=== PATIENT | female | born 1975 | race Caucasian/White ===

== ENCOUNTER → 2017-11-15 | Outpatient (CLI) | payer BC, OTHER, SELFPAY | LOC: M PLARAD 15:28 | DX: D49.1 Neoplasm of unspecified behavior of respiratory system (principal); N83.202 Unspecified ovarian cyst, left side | CPT/HCPCS: 78815 ==

== ENCOUNTER 2018-02-08 08:38 | Emergency (ER) | payer BC ==
[2018-02-08] MEDS: NS 1,000 ML IV (09:41)
[2018-02-08] MEDS: KETOROLAC 30 MG/ML VIAL (J1885) IV (09:41)
[2018-02-08 09:51] LABS: BASO % 0.5 % (0.0-1.0); EOS # 0.3 10^3/uL (0.0-0.50); EOS % 4.5 % (0.0-3.0); HEMATOCRIT 33.8 % (36.0-47.0); HEMOGLOBIN 11.4 g/dl (12.0-15.5); IMMATURE GRANULOCYTE % 0.3 % (0-3.0); LYMPH % 31.9 % (24.0-44.0); MEAN CORPUSCULAR HEMOGLOBIN 32.7 pg (27.0-33.0); MEAN CORPUSCULAR HGB CONC 33.7 g/dl (32.0-36.5); MEAN CORPUSCULAR VOLUME 96.8 fl (80.0-96.0); MONO # 0.4 10^3/uL (0.0-0.8); MONO % 6.9 % (0.0-5.0); NEUTROPHILS # 3.5 10^3/uL (1.8-7.7); NEUTROPHILS % 55.9 % (36.0-66.0); PLATELET COUNT, AUTOMATED 235 10^3/uL (150-450); RED BLOOD COUNT 3.49 10^6/uL (4.00-5.40); RED CELL DISTRIBUTION WIDTH 12.5 % (11.5-14.5); WHITE BLOOD COUNT 6.2 10^3/uL (4.0-10.0)
[2018-02-08 09:58] LABS: KETONE, URINE AUTO RFX NEGATIVE (NEGATIVE); LEUKOCYTE ESTERASE UR AUTO RFX NEGATIVE (NEGATIVE); MUCUS, URINE RFX LARGE (NEGATIVE); NITRITE, URINE AUTO RFX NEGATIVE (NEGATIVE); RBC, URINE AUTO RFX TNTC /HPF (0-3); SPECIFIC GRAVITY UR AUTO RFX 1.024 (1.002-1.035); SQUAM EPITHELIAL CELL UR AURFX 16 /HPF (0-6); WBC, URINE AUTO RFX 1 /HPF (0-3); YEAST LIKE CELL URINE AUTO RFX SMALL
[2018-02-08 10:11] LABS: ALBUMIN 3.3 GM/DL (3.2-5.2); ALBUMIN/GLOBULIN RATIO 0.92 (1.00-1.93); ALKALINE PHOSPHATASE 53 U/L (45-117); ALT/SGPT 15 U/L (12-78); ANION GAP 7 MEQ/L (8-16); AST/SGOT 9 U/L (7-37); BILIRUBIN,TOTAL 0.3 MG/DL (0.2-1.0); BLOOD UREA NITROGEN 14 MG/DL (7-18); CARBON DIOXIDE LEVEL 25 MEQ/L (21-32); CHLORIDE LEVEL 111 MEQ/L (98-107); CREATININE FOR GFR 0.67 MG/DL (0.55-1.30); GLOMERULAR FILTRATION RATE > 60.0 (>58); GLUCOSE, FASTING 96 MG/DL (70-100); LIPASE 137 U/L (73-393); POTASSIUM SERUM 3.4 MEQ/L (3.5-5.1); SODIUM LEVEL 143 MEQ/L (136-145); TOTAL PROTEIN 6.9 GM/DL (6.4-8.2)
[2018-02-08] MEDS: TAMSULOSIN 0.4 MG CAP PO (11:37)
== END 2018-02-08 11:43 | disposition home or self-care (01) ==
LOC: M ED 08:38
DX: N20.1 Calculus of ureter (principal); B25.9 Cytomegaloviral disease, unspecified; R91.8 Other nonspecific abnormal finding of lung field; Z79.899 Other long term (current) drug therapy
CPT/HCPCS: J1885

== ENCOUNTER → 2018-02-13 | Outpatient (REF) | payer BC ==
[2018-02-20 14:16] LABS: Ca Ox Monohydrate 70 % (.)
== END ==
LOC: M SMT 17:33
DX: N20.0 Calculus of kidney (principal)
CPT/HCPCS: 82360

== ENCOUNTER → 2018-04-17 | Outpatient (CLI) | payer BC ==
[~2018-04-17] MED LIST: METHACHOLINE KIT (J7674) INH
== END ==
LOC: M CARPUL 09:17
DX: R06.00 Dyspnea, unspecified (principal)
CPT/HCPCS: J7674

== ENCOUNTER → 2018-04-17 | Outpatient (CLI) | payer BC ==
[~2018-04-17] MED LIST changes: +ISOVUE-370 76% 100ML VIAL (Q9967) As Ordered; -METHACHOLINE KIT (J7674) INH
== END ==
LOC: M RAD 09:15
DX: R91.8 Other nonspecific abnormal finding of lung field (principal)
CPT/HCPCS: Q9967

== ENCOUNTER → 2019-12-20 | Outpatient (CLI) | payer BC ==
[~2019-12-20] MED LIST changes: +FLOM0.4C39 PO; -ISOVUE-370 76% 100ML VIAL (Q9967) As Ordered; +KETO10TAB PO; +OMEP20TA9 PO
--- NOTE | 2019-12-20 16:58 | REP ---
BILATERAL DIAGNOSTIC MAMMOGRAM WITH 3D TOMOSYNTHESIS, BILATERAL BREAST ULTRASOUND: No comparison mammogram. No family history of breast cancer. Tyrer-Cuzick lifetime risk of breast cancer 8.1%. MLO and CC views of both breasts performed. 3D tomosynthesis was performed. Additional spot compression views are performed for reported palpable abnormalities, two in the medial aspect of the right breast and another in the upper outer quadrant of the left breast. These are marked on the skin. Breast parenchyma is dense bilaterally. Volpara breast density is C. Sensitivity of the mammogram is therefore limited. In the inferomedial right breast, there is a smoothly-marginated nodule 1.2 cm in diameter, in the mid third of the breast. Focal nodular density in the upper outer quadrant of the left breast demonstrates ill-defined margins. It contains a metallic biopsy clip and is compatible with reported previous benign biopsy. There is also a biopsy clip in the inferior right breast from a prior benign biopsy. No suspicious clusters of microcalcifications are seen. I see no evidence of axillary adenopathy. Real-time sonographic evaluation of the palpable lumps is performed bilaterally, including the smoothly-marginated nodule in the inferomedial right breast. Comparison made with prior ultrasound exams, most recently 07/29/2019, as well as 07/26/2018. At 4-o'clock position in the right breast, there is a simple cyst with thin septation corresponding to the nodule on the mammogram. It measures 8 x 8 x 9 mm. At the site of the palpable lumps in the medial right breast, a cyst with a few thin internal septations appears benign with a maximum diameter of 5 mm. No other abnormality is seen in this region. In the upper outer quadrant of the left breast, a hypoechoic nodule, which was previously biopsied measures 1.6 x 1.8 x 1.3 cm, essentially unchanged compared to the ultrasound exam of 2019. There is also a 4 mm cyst in the adjacent 2-o'clock region of the left breast. No other abnormality is seen. IMPRESSION: BIRADS 2: BI-RADS/ACR category 2 mammogram. Benign Findings. ACR 2 benign findings. Dense breast parenchyma limits the sensitivity of the mammogram. Mammographically in the right breast, a smoothly-marginated rounded nodule is seen inferomedially, which corresponds to a benign cyst by ultrasound. A metallic biopsy clip is seen at 6-o'clock position. By ultrasound in the region of the palpable lumps, only a 5 mm is seen with thin septations, which also appears benign. In the left breast, a somewhat ill-defined nodule in the upper outer quadrant contains a biopsy clip. This is solid by ultrasound and appears unchanged since the ultrasound of 2018. Reportedly, this biopsy was also benign. No other abnormalities are seen. Followup mammogram recommended in 1 year. This mammogram was interpreted with the aid of an FDA-approved computer-aided detection system. The patient states she/he had a clinical breast exam in 12/2019. The patient letter being requested is M2.
== END ==
LOC: M WHC 09:14
PROVIDERS: ATTEND Surgery
DX: N63.10 Unspecified lump in the right breast, unspecified quadrant (principal); N63.20 Unspecified lump in the left breast, unspecified quadrant
CPT/HCPCS: 76642; 77066; G0279

== ENCOUNTER → 2020-08-13 | Outpatient (CLI) | payer BC ==
--- NOTE | 2020-08-13 16:47 | REP ---
INDICATION: N63.20 LEFT BREAST MASS. Assess growth. COMPARISON: Comparison sonography 20 December 2019. Comparison sonography from [facility] os pill is also reviewed January 04, 2018. Ultrasound-guided needle biopsy was performed on that date at [facility]. On January 04, 2018, the lesions measurements were 19 x 13 by 19 mm.. TECHNIQUE: Targeted left breast sonography. FINDINGS: On today's sonography the previously noted hypoechoic solid lesion which has been biopsied is again seen at approximately 1 to 2 o'clock position 10 cm from nipple. Its dimensions today are unchanged, 2.2 x 1.4 x 1.9 cm. Adjacent to this there is a 0.4 cm cyst. There is a single mildly dilated retroareolar duct. Heterogeneous fibroglandular background echotexture is seen. IMPRESSION: Previously biopsied solid lesion in the left breast is again noted essentially unchanged in size since the 2018 prior study. BI-RADS category 2 benign findings. <Electronically signed by Blane George > 08/13/20 [id number]
== END ==
LOC: M WHC 15:54
PROVIDERS: ATTEND Surgery
DX: N63.20 Unspecified lump in the left breast, unspecified quadrant (principal)

== ENCOUNTER → 2020-12-21 | Outpatient (CLI) | payer BC ==
[~2020-12-21] MED LIST changes: +OMEP20TA2 PO; -OMEP20TA9 PO
--- NOTE | 2020-12-22 09:08 | REPMRS ---
Patient History The patient states she had a clinical breast exam in 09/2020. Patient is postmenopausal. No Hormone Replacement Therapy Patient states no breast complaints today. Patient has signed MRS History Sheet. Digital Woman Screen Mammo: December 21, 2020 - Exam #: [id number] Bilateral CC and MLO view(s) were taken. Technologist: Yulissa Moore, Technologist Prior study comparison: December 20, 2019, diagnostic bilateral mammo performed at [facility]. January 04, 2018, left breast diagnostic unilateral mammo, performed at [facility]. FINDINGS: The breast tissue is heterogeneously dense. This may lower the sensitivity of mammography. The Volpara volumetric breast density category is: C. There is a needle biopsy marker clip again noted in each breast unchanged. Stable findings. There is a moderate amount of heterogeneously dense fibroglandular tissue which is fairly symmetric. There is no interval development of dominant mass, architectural distortion, or grouped microcalcification typical of malignancy. There has been no change in the appearance of the mammogram from the prior studies. 3-D tomosynthesis shows no additional findings. Assessment: BI-RADS/ACR category 2 mammogram. Benign Findings. Recommendation Routine screening mammogram of both breasts in 1 year (for women over age 40). This patient's [facility] Lifetime Breast Cancer RIsk is estimated at 7.1 %. This mammogram was interpreted with the aid of an FDA-approved computer-aided dectection system. Electronically Signed By: Blane George MD 12/22/20 0908
== END ==
LOC: M WHC 16:00
PROVIDERS: ATTEND Surgery
DX: Z12.31 Encounter for screening mammogram for malignant neoplasm of breast (principal); Z78.0 Asymptomatic menopausal state; Z98.890 Other specified postprocedural states

== ENCOUNTER → 2021-03-13 | Outpatient (CLI) | payer BC | LOC: M LABSMTC 10:27 | PROVIDERS: ATTEND Anesthesiology | DX: Z01.812 Encounter for preprocedural laboratory examination (principal); Z11.52 Encounter for screening for COVID-19 ==

== ENCOUNTER 2021-03-18 06:10 | Observation (INO) | payer BC ==
[~2021-03-18] VITALS: Ht 154.9 cm; Wt 66.2 kg
[~2021-03-18 06:10] MED LIST changes: +HEPARIN SOD (PORCINE) 5000UNITS/ML 1ML VIAL/SYRINGE SQ ONE; +LR 1,000 ML IV ONE; +ceFAZolin SOD 2 GM in IV 1 EA IV ONE
--- OUTSIDE RECORDS SUMMARY | 2021-03-18 06:16 | CCD | Continuity of Care Document ---
Author Author Shauna POLLARD DO Organization Unknown Address [address] [place] [address] Phone [phone] Care Team Providers Care Solid Waste Technician Name Role Phone Nancy, Sincere Sal AUTM [phone] AUTM Unavailable Marianela Disla D.O. AUTM Problems Description No Information Available Social History Type Date Description Comments Sex Female ETOH Use Denies alcohol use Tobacco Use Start: Unknown End: Patient is a former smoker hx: socailly when she went out, 4-5 cigs at a time since age 21, quit 2004 Smoking Status Reviewed: 01/13/21 Patient is a former smoker hx : socailly when she went out, 4-5 cigs at a time since age 21, quit 2004 Allergies and adverse reactions Description No Known Drug Allergies Medications Description No Active Medications Immunizations Description No Information Available Vital Signs Date Vital Result Comment 03/10/2021 3:14pm BP Systolic 122 mmHg BP Diastolic 64 mmHg Heart Rate 80 /min Respiratory Rate 14 /min Body Temperature 99.4 F Height 61 inches 5'1" Weight 151.00 lb BMI (Body Mass Index) 28.5 kg/m2 [place] Body Weight 105 lb Weight 68.494 kg BSA (Body Surface Area) 1.68 m2 01/11/2021 3:40pm BP Systolic 124 mmHg BP Diastolic 72 mmHg Heart Rate 74 /min Respiratory Rate 14 /min Body Temperature 99.9 F Height 61 inches 5'1" Weight 146.00 lb BMI (Body Mass Index) 27.6 kg/m2 [place] Body Weight 105 lb Weight 66.226 kg BSA (Body Surface Area) 1.65 m2 Results Description No Information Available Procedures Date Code Description Status 01/11/2021 95115 Office/Outpatient Established Mo d MDM 30-39 Min Completed 09/30/2020 64096 Office/Outpatient New Low MDM 30 -44 Minutes Completed Medical Devices Description No Information Available Encounters Type Date Location Provider Dx Diagnosis Office Visit 01/11/2021 3:30p [facility] Penny Paradise, DO N62 Hypertrophy of breast 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.2 Benign neoplasm of left [facility] Office Visit 09/30/2020 10:45a [facility] Penny Paradise, DO N62 Hypertrophy of breast N64.89 Other specified disorders of breast 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.2 Benign neoplasm of left ngoc [facility] 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 Assessments Date Code Description Provider 03/10/2021 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 Penny Paradise, DO 03/10/2021 D24.2 Benign neoplasm of left breast D eana Paradise, DO 03/10/2021 N62 Hypertrophy of breast Penny Pale y, DO 01/11/2021 N62 Hypertrophy of breast Penny Pale y, DO 01/11/2021 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 Penny Paradise, DO 01/11/2021 D24.2 Benign neoplasm of left breast D eana Paradise, DO 09/30/2020 N62 Hypertrophy of breast Penny Pale y, DO 09/30/2020 N64.89 Other specified disorders of rodriguez ast Penny Paradise, DO 09/30/2020 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 Penny Paradise, DO 09/30/2020 D24.2 Benign neoplasm of left breast D eana Paradise, DO 09/30/2020 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
--- OUTSIDE RECORDS SUMMARY | 2021-03-18 06:16 | CCD | Continuity of Care Document ---
Author Author Shauna POLLARD DO Organization Unknown Address [address] [place] [address] Phone [phone] Care Team Providers Care Sorting Livestock Worker Name Role Phone Nancy, Sincere Sal AUTM [phone] AUTM Unavailable Marianela Disla D.O. AUTM [phone] Problems Description No Information Available Social History [...] a time since age 21, quit 2004 Allergies, Adverse Reactions, Alerts Description No Known Drug Allergies Medications Description No Active Medications Immunizations Description No Information Available Vital Signs Date Vital Result Comment 01/11/2021 3:40pm BP Systolic 124 mmHg BP Diastolic 72 mmHg Heart Rate 74 /min Respiratory Rate 14 /min Body Temperature 99.9 F Height 61 inches 5'1" Weight 146.00 lb BMI (Body Mass Index) 27.6 kg/m2 [place] Body Weight 105 lb Weight 66.226 kg BSA (Body Surface Area) 1.65 m2 10/01/2020 8:08am BP Systolic 122 mmHg BP Diastolic 84 mmHg Heart Rate 68 /min Respiratory Rate 14 /min Body Temperature 96.0 F Height 61 inches 5'1" Weight 141.00 lb BMI (Body Mass Index) 26.6 kg/m2 [place] Body Weight 105 lb Weight 63.958 kg BSA (Body Surface Area) 1.63 m2 Results Description No Information Available Procedures Date Code Description Status 01/11/2021 71028 Office/Outpatient Established Mo d MDM 30-39 Min Completed 09/30/2020 25145 Office/Outpatient New Low MDM 30 -44 Minutes Completed Medical Devices Description No Information Available Encounters Type Date Location Provider Dx Diagnosis Office Visit 01/11/2021 3:30p [facility] Penny Paradise, DO N62 Hypertrophy of breast 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.2 Benign neoplasm of left [facility] Office Visit 09/30/2020 10:45a [facility] Penny Paradise, DO N62 Hypertrophy of breast N64.89 Other specified disorders of breast 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.2 Benign neoplasm of left ngoc st 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 Will coordinate scheduling with breast surgery.Tentative or date March 18Photographs taken today.Medical clearance. RTO pre op. Functional Status Functional Condition Comment Date Status Independent with all ADL's Activ e Independent with all IADL's Acti ve Mental Status Mental Condition Comment Date Status Cognitive ability not impaired A ctive Referrals Description No Information Available
--- OUTSIDE RECORDS SUMMARY | 2021-03-18 06:16 | CCD | Continuity of Care Document ---
Author Author Shauna POLLARD DO Organization Unknown Address [address] [place] [address] Phone [phone] Care Team Providers Care Meat Carrier Name Role Phone Nancy, Sincere Sal AUTM [phone] AUTM Unavailable Marianela Disla D.O. AUTM [phone] Problems Description No Information Available Social History [...] lb BMI (Body Mass Index) 28.5 kg/m2 [place] Body Weight 105 lb Weight 68.494 kg BSA (Body Surface Area) 1.68 m2 01/11/2021 3:40pm BP Systolic 124 mmHg BP Diastolic 72 mmHg Heart Rate 74 /min Respiratory Rate 14 /min Body Temperature 99.9 F Height 61 inches 5'1" Weight 146.00 lb BMI (Body Mass Index) 27.6 kg/m2 [place] Body Weight 105 lb Weight 66.226 kg BSA (Body Surface Area) 1.65 m2 Results Description No Information Available Procedures Date Code Description Status 01/11/2021 52113 Office/Outpatient Established Mo d MDM 30-39 Min Completed 09/30/2020 58066 Office/Outpatient New Low MDM 30 -44 Minutes Completed Medical Devices Description No Information Available Encounters Type Date Location Provider Dx Diagnosis Office Visit 01/11/2021 3:30p [facility] Penny Paradise, DO N62 Hypertrophy of breast 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
--- OUTSIDE RECORDS SUMMARY | 2021-03-18 06:16 | CCD ---
Author Author [facility] Organization [facility] Address Unknown Phone Unavailable Care Team Providers Care Customer Care Assistant Name Role Phone Aimepepito Marianela Unavailable PROBLEMS Type Condition ICD9-CM Code [id number] Code Onset Dates Condition S tatus W/U Status Risk SNOMED Code Notes Problem Kidney stone N20.0 Active confirmed 3674630 7 Problem Arnold-Chiari malformation Q07.00 Active confirmed [id number] ALLERGIES No Known Allergies ENCOUNTERS from 1975 to 2021-01-28 Encounter Location Date Provider Diagnosis [facility] [address] [place] [address] [place] [address] Jan, Marianela Disla IMMUNIZATIONS No Information SOCIAL HISTORY Tobacco Use: Social History Observation Description Date Details (start date - stop date) Former Smoker Sex Assigned At : Social History Observation Description Sex Assigned At Unknown Domestic Violence: Question Answer Notes Status: restistration recept ionist Sexual Hx: Question Answer Notes Had sex in the last 12 months (vaginal, oral, or anal)? Yes Have you ever had an STD? No with Men only Alcohol Screening: Question Answer Notes Did you have a drink containing alcohol in the past year? Ye s Points 1 Interpretation Negative How often did you have six or more drinks on one occas ion in the past year? Never (0 points) How many drinks did you have on a typica l day when you were drinking in the past year? 1 or 2 (0 points) How often did you have a drink containing alcohol in t he past year? Monthly or less (1 point) Tobacco Use: Question Answer Notes Are you a: former smoker How long has it been since you last smoked? 5-10 years REASON FOR REFERRAL No Information VITAL SIGNS No information MEDICATIONS Medication SIG (Take, Route, Frequency, Duration) Notes Start Da te End Date Status Ketorolac Tromethamine 10 MG 1 tablet with food or mil k as needed Orally every 6 hrs as needed Active Ciprofloxacin HCl 500 MG 1 tablet Orally every 12 hrs Not-Taking oxyCODONE-Acetaminophen 5-325 MG 1 tablet as needed Or ally every 4 hours as needed Not-Taking Ondansetron 4 MG 1 tablet on the tongue and a llow to dissolve as needed Orally every 4 hrs Not-Taking Nystatin [id number] UNIT/GM apply generously to affected area. Pls call office if rash doesn't go away. Externally Twice a day for 10 day(s) Active Tamsulosin HCl 0.4 MG Orally Not -Taking PROCEDURES No Information RESULTS No Results REASON FOR VISIT SURG 03/18/21 AUTH MEDICAL (GENERAL) HISTORY Type Description Date Medical History CMV Surgical History bladder suspension and ablasion 06/23 Surgical History part cervix removed 04/23 Surgical History hysterectomy 09/2020 Goals Section No Information Health Concerns No Information MEDICAL EQUIPMENT No Information MENTAL STATUS No Information FUNCTIONAL STATUS No Information ASSESSMENTS No Information PLAN OF TREATMENT Next Appt Details Provider Name:Marianela Disla, 25-03-14 07:30:00 AM, [address] [place] [phone], [place], [address] Provider Name:Marianela Disla, 25-03-25 10:30:00 AM, [address] [place] [phone], [place], [address], Insurance Providers Payer Name Payer Address Payer Phone Insured Name Patient Relati onship to Insured Coverage Start Date Coverage End Date [employer]BS [place] PPO [phone] [facility] [place] [facility] EUGENIO L[place] [facility] LORI LEVIN
--- OUTSIDE RECORDS SUMMARY | 2021-03-18 06:16 | CCD ---
Author Author [facility] Organization [facility] Address Unknown Phone Unavailable Care Team Providers Care Cook Starch Name Role Phone WillySusana lintonieszka Unavailable PROBLEMS Type Condition ICD9-CM Code JIP52-AZ Code Onset Dates Condition S tatus W/U Status Risk SNOMED Code Notes Problem Kidney stone N20.0 Active confirmed 6096183 7 Problem Arnold-Chiari malformation Q07.00 Active confirmed 683526814 ALLERGIES No Known Allergies ENCOUNTERS from 1975 to 2021-01-14 Encounter Location Date Provider Diagnosis [facility] [address] [place] [address] [place] [address] Jan, Marianela Disla Unspecified lump in the left breast, upper outer quadrant N63.21 ; Unspecified lump in the right breast, lower inner quadrant N63.14 ; Cyst of right breast N60.01 ; Breast pain N64.4 ; Macromastia N62 and Family history of cancer Z80.9 IMMUNIZATIONS No Information SOCIAL HISTORY Tobacco Use: [...] REASON FOR REFERRAL No Information VITAL SIGNS Weight 147 lbs Jan, Weight-kg 66.68 kg Jan, Height 5ft1in in Jan, BMI 27.77 kg/m2 Jan, Heart Rate 91 /min Jan, Respiratory Rate 18 /min Jan, Temperature 97.3 degrees Fahrenheit Jan, Oximetry 98 Jan, Blood pressure systolic 118 mm Hg Jan, Blood pressure diastolic 80 mm Hg Jan, MEDICATIONS Medication SIG (Take, Route, Frequency, Duration) [...] needed Orally every 4 hrs Not-Taking Nystatin 331827 UNIT/GM apply generously to affected area. Pls call office if rash doesn't go away. Externally Twice a day for 10 day(s) Active Tamsulosin HCl 0.4 MG Orally Not -Taking PROCEDURES No Information RESULTS No Results REASON FOR VISIT surgical discussion MEDICAL (GENERAL) HISTORY Type Description Date Medical History CMV Surgical History bladder suspension and ablasion 06/23 Surgical History part cervix removed 04/23 Surgical History hysterectomy 09/2020 Goals Section No Information Health Concerns No Information MEDICAL EQUIPMENT No Information MENTAL STATUS No Information FUNCTIONAL STATUS No Information ASSESSMENTS Encounter Date Diagnosis Assessment Notes Treatment Notes Treatm ent Clinical Notes Jan, Unspecified lump in the left breast, upper outer quadrant (ICD-10 - N63.21) I previously informed patient that during my clinical breast exam I felt density her left breast tissue at 1:00, 5-7cm from the nipple. Patient had a bilateral mammogram and ultrasound done on 12/20/2019. This showed a hypoechoic nodule that previously biopsied measuring 1.6 x 1.8 x 1.3 cm in the location of palpable mass. 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 There was also small cyst in this region. She had a repeat Left breast ultrasound on 08/13/2020 to assess growth rate of the nodule seen on previous imaging. This showed again at 1-2:00, 10 cm from the nipple, a hypoechoic nodule measuring 2.2 x 1.4 x 1.9 cm. Adjacent is a 0.4 cm cyst. This also showed a single mildly dilated retroareolar duct. I previously explained that due to the size of the mass exceeding 2 cm now, I recommend excision of the mass as it will likely continue to grow. I reviewed the procedure to the patient and explained possible risks and complications including bleeding, infection, injury to surrounding structures, numbness, poor cosmetic results and possible need for additional surgeries. Since the mass is palpable, I do not feel I need the intraop wire placement. Patient has met with Dr. Ghotra to discuss a combined case incorporating b/l breast reconstruction. We will plan her case for March 18, 2021. I will post a case for left breast excisional biopsy and bilateral breast reconstruction. She will need preop clearance with her PCP prior to the procedure with the latest labs and imaging (EKG, CXR, BMP, CBC). All questions were answered. Patient agrees with the plan Jan, Unspecified lump in the righ t breast, lower inner quadrant (ICD-10 - N63.14) The patient had a bilateral mammogram and ultrasound done on 12/20/2019. This showed a smoothly marginated nodule 1.2 cm in diameter that contains a biopsy clip - stable. There were also simple cysts seen in these locations. This nodule does not seem to cause pain or other symptoms to patient. Since the pathology was benign and since this nodule does not cause symptoms, I do not feel we need to excise this nodule at this time. Patient should continue annual mammograms to monitor this nodule. All questions were answered. Patient agrees with the plan Jan, Cyst of right breast (ICD-10 - N60.01) I previously informed patient that breast cysts are a benign condition and are usually hormone regulated. No treatment of the cysts is needed as long as they do not cause pain. If the pain is specifically due to the cyst, it can be drained under ultrasound guidance. At this time, no intervention for breast cysts is needed. All questions were answered. Patient agrees with the plan Jan, Breast pain (ICD-10 - N64.4) I have previously discussed with patient that breast pain is quite common in women and that there are numerous causes of the breast pain. There issome muskuloskeletal component on the right to Ms. Levin's breast pain. I previously taught her some osteopathic manipulation techniques to release points of soreness in the muscle. In her case in particular the internal rotation of her upper extremity with thump pointing down seems to help with the pain. I encouraged her to try those techniques at home. Patient notes that her pain was somewhat improved with evening primrose oil, however the pain on the left side, which is mostly caused by the fibroadenoma, is still bothering her. All questions were answered. Patient agrees with the plan Jan, Macromastia (ICD-10 - N62) Patient reports back and neck pain. She also had indentation from her bra straps bilaterally on her shoulders. She also notes dermatitis in the inframammary fold. Patient wears a 38DD. Patient met with Dr. Ghotra to discuss breast reconstruction options after left breast excision. Jan, Family history of cancer (ICD-10 - Z80.9) Patient previously participated in our Cancer screening program, Cancer [employer] and she was not found to be at increased risk for cancer based on her family history. She does not qualify for genetic testing or MRI of the breast based on her family history Jan, Other I, Dr. Disla, reviewed the medical note prepared by the scribe and confirm the findings and the discussed plan. PLAN OF TREATMENT Treatment Notes Assessment Notes Clinical Notes Unspecified lump in the left breast, upper outer quadr ant I previously informed patient that during my clinical breast exam I felt density her left breast tissue at 1:00, 5-7cm from the nipple.Patient had a bilateral mammogram and ultrasound done on 12/20/2019. This showed a hypoechoic nodule that previously biopsied measuring 1.6 x 1.8 x 1.3 cm in the location of palpable mass. 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 There was also small cyst in this region.She had a repeat Left breast ultrasound on 08/13/2020 to assess growth rate of the nodule seen on previous imaging. This showed again at 1-2:00, 10 cm from the nipple, a hypoechoic nodule measuring 2.2 x 1.4 x 1.9 cm. Adjacent is a 0.4 cm cyst. This also showed a single mildly dilated retroareolar duct.I previously explained that due to the size of the mass exceeding 2 cm now, I recommend excision of the mass as it will likely continue to grow. I reviewed the procedure to the patient and explained possible risks and complications including bleeding, infection, injury to surrounding structures, numbness, poor cosmetic results and possible need for additional surgeries.Since the mass is palpable, I do not feel I need the intraop wire placement.Patient has met with Dr. Ghotra to discuss a combined case incorporating b/l breast reconstruction. We will plan her case for March 18, 2021. I will post a case for left breast excisional biopsy and bilateral breast reconstruction.She will need preop clearance with her PCP prior to the procedure with the latest labs and imaging (EKG, CXR, BMP, CBC).All questions were answered. Patient agrees with the plan Unspecified lump in the right breast, lower inner quad rant The patient had a bilateral mammogram and ultrasound done on 12/20/2019. This showed a smoothly marginated nodule 1.2 cm in diameter that contains a biopsy clip - stable. There were also simple cysts seen in these locations.This nodule does not seem to cause pain or other symptoms to patient. Since the pathology was benign and since this nodule does not cause symptoms, I do not feel we need to excise this nodule at this time.Patient should continue annual mammograms to monitor this nodule.All questions were answered. Patient agrees with the plan Cyst of right breast I previously informed patien t that breast cysts are a benign condition and are usually hormone regulated. No treatment of the cysts is needed as long as they do not cause pain. If the pain is specifically due to the cyst, it can be drained under ultrasound guidance.At this time, no intervention for breast cysts is needed.All questions were answered. Patient agrees with the plan Breast pain I have previously discussed with patient that breast pain is quite common in women and that there are numerous causes of the breast pain.There issome muskuloskeletal component on the right to Ms. Levin's breast pain. I previously taught her some osteopathic manipulation techniques to release points of soreness in the muscle. In her case in particular the internal rotation of her upper extremity with thump pointing down seems to help with the pain. I encouraged her to try those techniques at home.Patient notes that her pain was somewhat improved with evening primrose oil, however the pain on the left side, which is mostly caused by the fibroadenoma, is still bothering her.All questions were answered. Patient agrees with the plan Macromastia Patient reports back and nec k pain. She also had indentation from her bra straps bilaterally on her shoulders. She also notes dermatitis in the inframammary fold.Patient wears a 38DD.Patient met with Dr. Ghotra to discuss breast reconstruction options after left breast excision. Family history of cancer Patient previously participa rolf in our Cancer screening program, Cancer IQ and she was not found to be at increased risk for cancer based on her family history. She does not qualify for genetic testing or MRI of the breast based on her family history Insurance Providers Payer Name Payer Address Payer Phone Insured Name Patient Relati onship to Insured Coverage Start Date Coverage End Date BCBS CARI WONG PPO [phone] [facility] [employer] EUGENIO LEVINE [facility] [id number] LORI LEVIN self
--- OUTSIDE RECORDS SUMMARY | 2021-03-18 06:16 | CCD ---
Author Author [facility] Organization [facility] Address Unknown Phone Unavailable Care Team Providers Care Sharepoint Net Developer Name Role Phone AimepepitoMarianela Unavailable PROBLEMS Type Condition ICD9-CM Code [id number] Code Onset Dates Condition S tatus W/U Status Risk SNOMED Code Notes Problem Kidney stone N20.0 Active confirmed 7990426 7 Problem Arnold-Chiari malformation Q07.00 Active confirmed 646537277 ALLERGIES No Known Allergies ENCOUNTERS from 1975 to 2021-03-11 Encounter Location Date Provider Diagnosis [facility] Breast Care [address] [place] [address] [place] [address] 07 Mar, 2021 Marianela Disla IMMUNIZATIONS No Information SOCIAL HISTORY [...] needed Orally every 4 hrs Not-Taking Nystatin 960084 UNIT/GM apply generously to affected area. Pls call office if rash doesn't go away. Externally Twice a day for 10 day(s) Active Tamsulosin HCl 0.4 MG Orally Not -Taking PROCEDURES No Information RESULTS No Results REASON FOR VISIT disability paperwork MEDICAL (GENERAL) HISTORY Type Description Date Medical History CMV Surgical History bladder suspension and ablasion 06/23 Surgical History part cervix removed 04/23 Surgical History hysterectomy 09/2020 Goals Section No Information Health Concerns No Information MEDICAL EQUIPMENT No Information MENTAL STATUS No Information FUNCTIONAL STATUS No Information ASSESSMENTS No Information PLAN OF TREATMENT Next Appt Details Provider Name:Marianela Disla, 25-03-14 07:30:00 AM, [address] [place] [phone] [place] [address], [phone] Provider Name:Marianela Disla, 25-03-25 10:30:00 AM, [address] [place], [place] [phone] [place] [address], [address] [place], [place] [phone] Provider Name:Marianela Disla, 25-04-12 04:30:00 PM, [address] [place], [place] [id number], [place], [id number] [place], [place] [phone] Insurance Providers Payer Name Payer Address Payer Phone Insured Name Patient Relati onship to Insured Coverage Start Date Coverage End Date BCBS [place] [employer]AT[place]odo PPO [phone] [facility] [employer] [place] [address] LORI LEVIN
--- OUTSIDE RECORDS SUMMARY | 2021-03-18 06:16 | CCD | Continuity of Care Document ---
Author Author Shauna POLLARD DO Organization Unknown Address [address] [place] [address] Phone [phone] Care Team Providers Care Advanced Manufacturing Engineer Name Role Phone Nancy, Sincere Sal AUTM [phone] AUTM Unavailable Marianela Disla D.O. AUTM Problems [...] lb BMI (Body Mass Index) 28.5 kg/m2 [place] Body Weight 105 lb Weight 68.494 kg BSA (Body Surface Area) 1.68 m2 01/11/2021 3:40pm BP Systolic 124 mmHg BP Diastolic 72 mmHg Heart Rate 74 /min Respiratory Rate 14 /min Body Temperature 99.9 F Height 61 inches 5'1" Weight 146.00 lb BMI (Body Mass Index) 27.6 kg/m2 [place] Body Weight 105 lb Weight 66.226 kg BSA (Body Surface Area) 1.65 m2 Results Description No Information Available Procedures Date Code Description Status 01/11/2021 62379 Office/Outpatient Established Mo d MDM 30-39 Min Completed 09/30/2020 83836 Office/Outpatient New Low MDM 30 -44 Minutes Completed Medical Devices Description No Information Available Encounters Type Date Location Provider Dx Diagnosis Office Visit 01/11/2021 3:30p [facility] Penny Paradise, DO N62 Hypertrophy of breast 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.2 Benign neoplasm of left ngoc st Office Visit 09/30/2020 10:45a [facility] Penny Paradise, DO N62 Hypertrophy [...] 7:30 am - Penny Pollard, DO at [facility] * 03/24/2021 11:30 am - Penny Pollard, DO at [facility] Functional Status Functional Condition Comment Date Status Independent with all ADL's Activ e Independent with all IADL's Acti ve Mental Status Mental Condition Comment Date Status Cognitive ability not impaired A ctive Referrals Description No Information Available
--- OUTSIDE RECORDS SUMMARY | 2021-03-18 06:17 | CCD ---
Author Author [facility] Organization [facility] Address Unknown Phone Unavailable Care Team Providers Care Respiratory Therapy Director Name Role Phone Marianela Disla Unavailable PROBLEMS Type Condition ICD9-CM Code AOU02-AL Code Onset Dates Condition S tatus W/U Status Risk SNOMED Code Notes Problem Kidney stone N20.0 Active confirmed 9563334 7 Problem Arnold-Chiari malformation Q07.00 Active confirmed 061470624 ALLERGIES No Known Allergies ENCOUNTERS from 1975 to 2020-12-24 Encounter Location Date Provider Diagnosis [facility] Breast [facility] [address] [place] [address] [place] [address] Dec, Marianela Disla IMMUNIZATIONS No Information SOCIAL HISTORY [...] Notes Start Da te End Date Status oxyCODONE-Acetaminophen 5-325 MG 1 tablet as needed Or ally every 4 hours as needed Not-Taking Ciprofloxacin HCl 500 MG 1 tablet Orally every 12 hrs Not-Taking Nystatin 564751 UNIT/GM apply generously to affected area. Pls call office if rash doesn't go away. Externally Twice a day for 10 day(s) Active Tamsulosin HCl 0.4 MG Orally Not -Taking Ketorolac Tromethamine 10 MG 1 tablet with food or mil k as needed Orally every 6 hrs Active Ondansetron 4 MG 1 tablet on the tongue and a llow to dissolve as needed Orally every 4 hrs Not-Taking PROCEDURES No Information RESULTS No Results REASON FOR VISIT digital/pelon bilateral mammo screening results MEDICAL (GENERAL) HISTORY Type Description Date Medical History CMV Surgical History bladder suspension and ablasion 06/23 Surgical History part cervix removed 04/23 Goals Section No Information Health Concerns No Information MEDICAL EQUIPMENT No Information MENTAL STATUS No Information FUNCTIONAL STATUS No Information ASSESSMENTS No Information PLAN OF TREATMENT Medication Medication Name Sig Start Date Stop Date Nystatin 146969 UNIT/GM apply generously to affected area. Pls call office if rash doesn't go away. Externally Twice a day for 10 day(s) Next Appt Details Provider Name:Marianela Disla, 20 23-01-06 04:00:00 PM, [address] [place] [address], , [place], [address], Insurance Providers Payer Name Payer Address Payer Phone Insured Name Patient Relati onship to Insured Coverage Start Date Coverage End Date BCBS [place] WATN PPO [phone] [facility] [place] [address] LORI LEVIN
--- OUTSIDE RECORDS SUMMARY | 2021-03-18 06:17 | CCD | Continuity of Care Document ---
Author Author Shauna POLLARD DO Organization Unknown Address [address] [place] [address] Phone [phone] Care Team Providers Care [employer] Name Role Phone Nancy, Sincere Sal AUTM [phone] AUTM Unavailable Marianela Disla D.O. AUTM [phone] Problems Description No Information Available Social History Type Date Description Comments Sex Female ETOH Use Denies alcohol use Tobacco Use Start: Unknown End: Patient is a former smoker hx: socailly when she went out, 4-5 cigs at a time since age 21, quit 2004 Smoking Status Reviewed: 09/30/20 Patient is a former smoker hx : [...] lb BMI (Body Mass Index) 27.6 kg/m2 [place] Body Weight 105 lb Weight 66.226 kg BSA (Body Surface Area) 1.65 m2 10/01/2020 8:08am BP Systolic 122 mmHg BP Diastolic 84 mmHg Heart Rate 68 /min Respiratory Rate 14 /min Body Temperature 96.0 F Height 61 inches 5'1" Weight 141.00 lb BMI (Body Mass Index) 26.6 kg/m2 [place] Body Weight 105 lb Weight 63.958 kg BSA (Body Surface Area) 1.63 m2 Results Description No Information Available Procedures Date Code Description Status 09/30/2020 20870 Office/Outpatient New Low [facility] 30 -44 Minutes Completed Medical Devices Description No Information Available Encounters Type Date Location Provider Dx Diagnosis Office Visit 09/30/2020 10:45a [facility] Penny Paradise, DO N62 Hypertrophy of breast N64.89 Other specified disorders of breast 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.2 Benign neoplasm of left ngoc st 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 Assessments Date Code Description Provider 09/30/2020 N62 Hypertrophy of breast Penny Pale y, DO 09/30/2020 N64.89 Other specified disorders of rodriguez ast Penyn Paradise, DO 09/30/2020 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 Penny Paradise, DO 09/30/2020 D24.2 Benign neoplasm of left breast D eana Paradise, DO 09/30/2020 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 Penny Paradise, DO Plan of Treatment No Information Available Functional Status Functional Condition Comment Date Status Independent with all ADL's Activ e Independent with all IADL's Acti ve Mental Status Mental Condition Comment Date Status Cognitive ability not impaired A ctive Referrals Description No Information Available
--- OUTSIDE RECORDS SUMMARY | 2021-03-18 06:18 | CCD ---
Author Author [facility] Organization [facility] Address Unknown Phone Unavailable Care Team Providers Care Furniture Packer Name Role Phone Nick SCHILLING Unavailable Unavailable Cougler, S Inxon SUPPLY CHAIN BUYER Unavailable Unavailable Cougler, S Nixon SUPPLY CHAIN BUYER Unavailable Unavailable Cougler, S Nixon SUPPLY CHAIN BUYER Unavailable Unavailable Cougler, S Nixon SUPPLY CHAIN BUYER Unavailable Unavailable Cougler, S Nixon SUPPLY CHAIN BUYER Unavailable Unavailable Cougler, S Nixon SUPPLY CHAIN BUYER Unavailable Unavailable Cougler, S Nixon SUPPLY CHAIN BUYER Unavailable Unavailable Cougler, S Nixon SUPPLY CHAIN BUYER Unavailable Unavailable Cougler, S Nixon SUPPLY CHAIN BUYER Unavailable Unavailable Cougler, S Nixon SUPPLY CHAIN BUYER Unavailable Unavailable Cougler, S Nixon SUPPLY CHAIN BUYER Unavailable Unavailable Cougler, S Nixon SUPPLY CHAIN BUYER Unavailable Unavailable Cougler, S Nixon SUPPLY CHAIN BUYER Unavailable Unavailable Cougler, S Nixon SUPPLY CHAIN BUYER Unavailable Unavailable Cougler, S Nixon SUPPLY CHAIN BUYER Unavailable Unavailable Cougler, S Nixon SUPPLY CHAIN BUYER Unavailable Unavailable Cougler, S Nixon SUPPLY CHAIN BUYER Unavailable Unavailable Cougler, S Nixon SUPPLY CHAIN BUYER Unavailable Unavailable Cougler, S Nixon SUPPLY CHAIN BUYER Unavailable Unavailable Cougler, S Nixon SUPPLY CHAIN BUYER Unavailable Unavailable Cougler, S Nixon SUPPLY CHAIN BUYER Unavailable Unavailable Cougler, S Nixon SUPPLY CHAIN BUYER Unavailable Unavailable Cougler, S Nixon SUPPLY CHAIN BUYER Unavailable Unavailable Cougler, S Nixon SUPPLY CHAIN BUYER Unavailable Unavailable Cougler, S Nixon SUPPLY CHAIN BUYER Unavailable Unavailable Cougler, S Nixon SUPPLY CHAIN BUYER Unavailable Unavailable Cougler, S Nixon SUPPLY CHAIN BUYER Unavailable Unavailable Cougler, S Nixon SUPPLY CHAIN BUYER Unavailable Unavailable Cougler, S Nixon SUPPLY CHAIN BUYER Unavailable Unavailable Cougler, S Nixon SUPPLY CHAIN BUYER Unavailable Unavailable Cougler, S Nixon SUPPLY CHAIN BUYER Unavailable Unavailable Cougler, S Nixon SUPPLY CHAIN BUYER Unavailable Unavailable Cougler, S Nixon SUPPLY CHAIN BUYER Unavailable Unavailable Cougler, S Nixon SUPPLY CHAIN BUYER Unavailable Unavailable Cougler, S Nixon SUPPLY CHAIN BUYER Unavailable Unavailable Cougler, S Nixon SUPPLY CHAIN BUYER Unavailable Unavailable Cougler, S Nixon SUPPLY CHAIN BUYER Unavailable Unavailable Cougler, S Nixon SUPPLY CHAIN BUYER Unavailable Unavailable Cougler, S Nixon SUPPLY CHAIN BUYER Unavailable Unavailable Cougler, S Nixon SUPPLY CHAIN BUYER Unavailable Unavailable Cougler, S Nixon SUPPLY CHAIN BUYER Unavailable Unavailable Cougler, S Nixon SUPPLY CHAIN BUYER Unavailable Unavailable Cougler, S Nixon SUPPLY CHAIN BUYER Unavailable Unavailable Cougler, S Nixon SUPPLY CHAIN BUYER Unavailable Unavailable Wong, [phone] L Joann MD Unavailable [phone] Wong, [phone] L Joann MD Unavailable [phone] Wong, [phone] L Joann MD Unavailable [phone] Wong, [phone] L Joann MD Unavailable [phone] Wong, [phone] L Joann MD Unavailable [phone] Wong, [phone] L Joann MD Unavailable [phone] Wong, [phone] L Joann MD Unavailable [phone] Wong, [phone] L Joann MD Unavailable [phone] Wong, [phone] L Joann MD Unavailable [phone] Wong, [phone] L Joann MD Unavailable [phone] Wong, [phone] L Joann MD Unavailable [phone] Wong, [phone] Nick David MD Unavailable [phone] Marvin [phone] Nick David MD Unavailable [phone] Marvin [phone] Nick David MD Unavailable [phone] LATRICE, E CLAIRE DO Unavailable Unavailable LATRICE, E CLAIRE DO Unavailable Unavailable LATRICE, E CLAIRE DO Unavailable Unavailable LATRICE, E CLAIRE DO Unavailable Unavailable LATRICE, E CLAIRE DO Unavailable Unavailable LATRICE, E CLAIRE DO Unavailable Unavailable LATRICE, E CLAIRE DO Unavailable Unavailable LATRICE, E CLAIRE DO Unavailable Unavailable LATRICE, E CLAIRE DO Unavailable Unavailable LATRICE, E CLAIRE DO Unavailable Unavailable LATRICE, E CLAIRE DO Unavailable Unavailable LATRICE, E CLAIRE DO Unavailable Unavailable LATRICE, E CLAIRE DO Unavailable Unavailable LATRICE, E CLAIRE DO Unavailable Unavailable LATRICE, E CLAIRE DO Unavailable Unavailable LATRICE, E CLAIRE DO Unavailable Unavailable LATRICE, E CLAIRE DO Unavailable Unavailable LATRICE, E CLAIRE DO Unavailable Unavailable LATRICE, E CLAIRE DO Unavailable Unavailable LATRICE, E CLAIRE DO Unavailable Unavailable LATRICE, E CLAIRE DO Unavailable Unavailable LATRICE, E CLAIRE DO Unavailable Unavailable Jamie BROOKE MD Unavailable Unavailable Jamie BROOKE MD Unavailable Unavailable Jamie BROOKE MD Unavailable Unavailable Jamie BROOKE MD Unavailable Unavailable Jamie BROOKE MD Unavailable Unavailable Jamie BROOKE MD Unavailable Unavailable Jamie BROOKE MD Unavailable Unavailable Jamie BROOKE MD Unavailable Unavailable Jamie BROOKE MD Unavailable Unavailable Jamie BROOKE MD Unavailable Unavailable Jamie BROOKE MD Unavailable Unavailable Jamie BROOKE MD Unavailable Unavailable Jamie BROOKE MD Unavailable Unavailable Jamie BROOKE MD Unavailable Unavailable Jamie BROOKE MD Unavailable Unavailable Jamie BROOKE MD Unavailable Unavailable Jamie BROOKE MD Unavailable Unavailable Jamie BROOKE MD Unavailable Unavailable Jamie BROOKE MD Unavailable Unavailable Jamie BROOKE MD Unavailable Unavailable Jamie BROOKE MD Unavailable Unavailable Jamie BROOKE MD Unavailable Unavailable Jamie BROOKE MD Unavailable Unavailable Jamie BROOKE MD Unavailable Unavailable Jamie BROOKE MD Unavailable Unavailable Jamie BROOKE MD Unavailable Unavailable Jamie BROOKE MD Unavailable Unavailable Jamie BROOKE MD Unavailable Unavailable Jamie BROOKE MD Unavailable Unavailable Jamie BROOKE MD Unavailable Unavailable EDWARDOJamie Hill MD Unavailable Unavailable EDWARDOJamie Hill MD Unavailable Unavailable Jamie BROOKE MD Unavailable Unavailable Jamie BROOKE MD Unavailable Unavailable Jamie BROOKE MD Unavailable Unavailable Jamie BROOKE MD Unavailable Unavailable Jamie BROOKE MD Unavailable Unavailable Jamie BROOKE MD Unavailable Unavailable Jamie BROOKE MD Unavailable Unavailable Jamie BROOKE MD Unavailable Unavailable Jamie BROOKE MD Unavailable Unavailable Jamie BROOKE MD Unavailable Unavailable Jamie BROOKE MD Unavailable Unavailable Jamie BROOKE MD Unavailable Unavailable Jamie BROOKE MD Unavailable Unavailable Jamie BROOKE MD Unavailable Unavailable Jamie BROOKE MD Unavailable Unavailable Jamie BROOKE MD Unavailable Unavailable Jamie BROOKE MD Unavailable Unavailable Jamie BROOKE MD Unavailable Unavailable Jamie BROOKE MD Unavailable Unavailable Jamie BROOKE MD Unavailable Unavailable Jamie BROOKE MD Unavailable Unavailable Jamie BROOKE MD Unavailable Unavailable Jamie BROOKE MD Unavailable Unavailable Jamie BROOKE MD Unavailable Unavailable Jamie BROOKE MD Unavailable Unavailable REASON, L EDWARD DO Unavailable Unavailable REASON, L EDWARD DO Unavailable Unavailable REASON, L EDWARD DO Unavailable Unavailable REASON, L EDWARD DO Unavailable Unavailable REASON, L EDWARD DO Unavailable Unavailable REASON, L EDWARD DO Unavailable Unavailable REASON, L EDWARD DO Unavailable Unavailable REASON, L EDWARD DO Unavailable Unavailable REASON, L EDWARD DO Unavailable Unavailable REASON, L EDWARD DO Unavailable Unavailable REASON, L EDWARD DO Unavailable Unavailable REASON, L EDWARD DO Unavailable Unavailable REASON, L EDWARD DO Unavailable Unavailable REASON, L EDWARD DO Unavailable Unavailable REASON, L EDWARD DO Unavailable Unavailable REASON, L EDWARD DO Unavailable Unavailable REASON, L EDWARD DO Unavailable Unavailable REASON, L EDWARD DO Unavailable Unavailable REASON, L EDWARD DO Unavailable Unavailable REASON, L EDWARD DO Unavailable Unavailable REASON, L EDWARD DO Unavailable Unavailable REASON, L EDWARD DO Unavailable Unavailable REASON, L EDWARD DO Unavailable Unavailable REASON, L EDWARD DO Unavailable Unavailable REASON, L EDWARD DO Unavailable Unavailable REASON, L EDWARD DO Unavailable Unavailable REASON, L EDWARD DO Unavailable Unavailable REASON, L EDWARD DO Unavailable Unavailable REASON, L EDWARD DO Unavailable Unavailable REASON, L EDWARD DO Unavailable Unavailable REASON, L EDWARD DO Unavailable Unavailable REASON, L EDWARD DO Unavailable Unavailable REASON, L EDWARD DO Unavailable Unavailable REASON, L EDWARD DO Unavailable Unavailable REASON, L EDWARD DO Unavailable Unavailable REASON, L EDWARD DO Unavailable Unavailable REASON, L EDWARD DO Unavailable Unavailable REASON, L EDWARD DO Unavailable Unavailable REASON, L EDWARD DO Unavailable Unavailable REASON, L EDWARD DO Unavailable Unavailable REASON, L EDWARD DO Unavailable Unavailable REASON, L EDWARD DO Unavailable Unavailable REASON, L EDWARD DO Unavailable Unavailable REASON, L EDWARD DO Unavailable Unavailable REASON, L EDWARD DO Unavailable Unavailable REASON, L EDWARD DO Unavailable Unavailable REASON, L EDWARD DO Unavailable Unavailable REASON, L EDWARD DO Unavailable Unavailable REASON, L EDWARD DO Unavailable Unavailable REASON, L EDWARD DO Unavailable Unavailable REASON, L EDWARD DO Unavailable Unavailable REASON, L EDWARD DO Unavailable Unavailable REASON, L EDWARD DO Unavailable Unavailable REASON, L EDWARD DO Unavailable Unavailable REASON, L EDWARD DO Unavailable Unavailable REASON, L EDWARD DO Unavailable Unavailable REASON, L EDWARD DO Unavailable Unavailable REASON, L EDWARD DO Unavailable Unavailable REASON, L EDWARD DO Unavailable Unavailable REASON, L EDWARD DO Unavailable Unavailable REASON, L EDWARD DO Unavailable Unavailable REASON, L EDWARD DO Unavailable Unavailable REASON, L EDWARD DO Unavailable Unavailable REASON, L EDWARD DO Unavailable Unavailable REASON, L EDWARD DO Unavailable Unavailable REASON, L EDWARD DO Unavailable Unavailable REASON, L EDWARD DO Unavailable Unavailable REASON, L EDWARD DO Unavailable Unavailable REASON, L EDWARD DO Unavailable Unavailable REASON, L EDWARD DO Unavailable Unavailable REASON, L EDWARD DO Unavailable Unavailable REASON, L EDWARD DO Unavailable Unavailable REASON, L EDWARD DO Unavailable Unavailable REASON, L EDWARD DO Unavailable Unavailable REASON, L EDWARD DO Unavailable Unavailable REASON, L EDWARD DO Unavailable Unavailable REASON, L EDWARD DO Unavailable Unavailable REASON, L EDWARD DO Unavailable Unavailable REASON, L EDWARD DO Unavailable Unavailable REASON, L EDWARD DO Unavailable Unavailable REASON, L EDWARD DO Unavailable Unavailable REASON, L EDWARD DO Unavailable Unavailable REASON, L EDWARD DO Unavailable Unavailable REASON, L EDWARD DO Unavailable Unavailable REASON, L EDWARD DO Unavailable Unavailable REASON, L EDWARD DO Unavailable Unavailable REASON, L EDWARD DO Unavailable Unavailable REASON, L EDWARD DO Unavailable Unavailable REASON, L EDWARD DO Unavailable Unavailable REASON, L EDWARD DO Unavailable Unavailable REASON, L EDWARD DO Unavailable Unavailable REASON, L EDWARD DO Unavailable Unavailable REASON, L EDWARD DO Unavailable Unavailable REASON, L EDWARD DO Unavailable Unavailable REASON, L EDWARD DO Unavailable Unavailable REASON, L EDWARD DO Unavailable Unavailable REASON, L EDWARD DO Unavailable Unavailable REASON, L EDWARD DO Unavailable Unavailable REASON, L EDWARD DO Unavailable Unavailable REASON, L EDWARD DO Unavailable Unavailable REASON, L EDWARD DO Unavailable Unavailable REASON, L EDWARD DO Unavailable Unavailable REASON, L EDWARD DO Unavailable Unavailable REASON, L EDWARD DO Unavailable Unavailable REASON, L EDWARD DO Unavailable Unavailable REASON, L EDWARD DO Unavailable Unavailable REASON, L EDWARD DO Unavailable Unavailable REASON, L EDWARD DO Unavailable Unavailable REASON, L EDWARD DO Unavailable Unavailable REASON, L EDWARD DO Unavailable Unavailable REASON, L EDWARD DO Unavailable Unavailable REASON, L EDWARD DO Unavailable Unavailable REASON, L EDWARD DO Unavailable Unavailable REASON, L EDWARD DO Unavailable Unavailable REASON, L EDWARD DO Unavailable Unavailable REASON, L EDWARD DO Unavailable Unavailable REASON, L EDWARD DO Unavailable Unavailable REASON, L EDWARD DO Unavailable Unavailable REASON, L EDWARD DO Unavailable Unavailable REASON, L EDWARD DO Unavailable Unavailable REASON, L EDWARD DO Unavailable Unavailable REASON, L EDWARD DO Unavailable Unavailable REASON, L EDWARD DO Unavailable Unavailable REASON, L EDWARD DO Unavailable Unavailable REASON, L EDWARD DO Unavailable Unavailable REASON, L EDWARD DO Unavailable Unavailable REASON, L EDWARD DO Unavailable Unavailable REASON, L EDWARD DO Unavailable Unavailable REASON, L EDWARD DO Unavailable Unavailable REASON, L EDWARD DO Unavailable Unavailable REASON, L EDWARD DO Unavailable Unavailable REASON, L EDWARD DO Unavailable Unavailable REASON, L EDWARD DO Unavailable Unavailable REASON, L EDWARD DO Unavailable Unavailable FangKimi chambers DO Unavailable Unavailable FangKimi chambers DO Unavailable Unavailable FangKimi chambers DO Unavailable Unavailable FangKimi chambers DO Unavailable Unavailable FangKimi chambers DO Unavailable Unavailable FangKimi chambers DO Unavailable Unavailable FangKimi chambers DO Unavailable Unavailable FangKimi chambers DO Unavailable Unavailable FangKimi chambers DO Unavailable Unavailable FangKimi chambers DO Unavailable Unavailable Fang, M Seng DO Unavailable Unavailable Fang, Kimi Ellsworth DO Unavailable Unavailable Fang, Kimi Redmanel DO Unavailable Unavailable Fang, M Seng DO Unavailable Unavailable Fang, M Seng DO Unavailable Unavailable Fang, M Seng DO Unavailable Unavailable Jamie BROOKE MD Unavailable Unavailable Jamie BROOKE MD Unavailable Unavailable Jamie BROOKE MD Unavailable Unavailable Jamie BROOKE MD Unavailable Unavailable Jamie BROOKE MD Unavailable Unavailable Jamie BROOKE MD Unavailable Unavailable Jamie BROOKE MD Unavailable Unavailable Jamie BROOKE MD Unavailable Unavailable Jamie BROOKE MD Unavailable Unavailable Jamie BROOKE MD Unavailable Unavailable Jamie BROOKE MD Unavailable Unavailable Jamie BROOKE MD Unavailable Unavailable Jamie BROOKE MD Unavailable Unavailable Jamie BROOKE MD Unavailable Unavailable Jamie BROOKE MD Unavailable Unavailable Jamie BROOKE MD Unavailable Unavailable Jamie BROOKE MD Unavailable Unavailable Jamie BROOKE MD Unavailable Unavailable Jamie BROOKE MD Unavailable Unavailable Jamie BROOKE MD Unavailable Unavailable Jamie BROOKE MD Unavailable Unavailable Jamie BROOKE MD Unavailable Unavailable Jamie BROOKE MD Unavailable Unavailable Jamie BROOKE MD Unavailable Unavailable Jamie BROOKE MD Unavailable Unavailable Jamie BROOKE MD Unavailable Unavailable Jamie BROOKE MD Unavailable Unavailable Jamie BROOKE MD Unavailable Unavailable Jamie BROOKE MD Unavailable Unavailable Jamie BROOKE MD Unavailable Unavailable Jamie BROOKE MD Unavailable Unavailable Jamie BROOKE MD Unavailable Unavailable Jamie BROOKE MD Unavailable Unavailable Jamie BROOKE MD Unavailable Unavailable Jamie BROOKE MD Unavailable Unavailable Jamie BROOKE MD Unavailable Unavailable Jamie BROOKE MD Unavailable Unavailable Jamie BROOKE MD Unavailable Unavailable Jamie BROOKE MD Unavailable Unavailable Jamie BROOKE MD Unavailable Unavailable Jamie BROOKE MD Unavailable Unavailable Jamie BROOKE MD Unavailable Unavailable Jamie BROOKE MD Unavailable Unavailable Jamie BROOKE MD Unavailable Unavailable Jamie BROOKE MD Unavailable Unavailable Jamie BROOKE MD Unavailable Unavailable Jamie BROOKE MD Unavailable Unavailable Jamie BROOKE MD Unavailable Unavailable Jamie BROOKE MD Unavailable Unavailable Jamie BROOKE MD Unavailable Unavailable Jamie BROOKE MD Unavailable Unavailable Jamie BROOKE MD Unavailable Unavailable Jamie BROOKE MD Unavailable Unavailable Jamie BROOKE MD Unavailable Unavailable Jamie BROOKE MD Unavailable Unavailable Jamie BROOKE MD Unavailable Unavailable Jamie BROOKE MD Unavailable Unavailable SYDNEE NULL MD Unavailable Unavailable SYDNEE NULL MD Unavailable Unavailable SYDNEE NULL MD Unavailable Unavailable SYDNEE NULL MD Unavailable Unavailable SYDNEE NULL MD Unavailable Unavailable SYDNEE NULL MD Unavailable Unavailable SYDNEE NULL MD Unavailable Unavailable SYDNEE NULL MD Unavailable Unavailable SYDNEE NULL MD Unavailable Unavailable SYDNEE NULL MD Unavailable Unavailable SYDNEE NULL MD Unavailable Unavailable SYDNEE NULL MD Unavailable Unavailable SYDNEE NULL MD Unavailable Unavailable SYDNEE NULL MD Unavailable Unavailable SYDNEE NULL MD Unavailable Unavailable SYDNEE NULL MD Unavailable Unavailable SYDNEE NULL MD Unavailable Unavailable SYDNEE NULL MD Unavailable Unavailable SYDNEE NULL MD Unavailable Unavailable SYDNEE NULL MD Unavailable Unavailable Jamie BROOKE MD Unavailable Unavailable Jamie BROOKE MD Unavailable Unavailable Jamie BROOKE MD Unavailable Unavailable Jamie BROOKE MD Unavailable Unavailable Jamie BROOKE MD Unavailable Unavailable Jamie BROOKE MD Unavailable Unavailable Jamie BROOKE MD Unavailable Unavailable Jamie BROOKE MD Unavailable Unavailable Jamie BROOKE MD Unavailable Unavailable Jamie BROOKE MD Unavailable Unavailable Jamie BROOKE MD Unavailable Unavailable Jamie BROOKE MD Unavailable Unavailable Jamie BROOKE MD Unavailable Unavailable Jamie BROOKE MD Unavailable Unavailable Jamie BROOKE MD Unavailable Unavailable Jamie BROOKE MD Unavailable Unavailable Jamie BROOKE MD Unavailable Unavailable Jamie BROOKE MD Unavailable Unavailable Jamie BROOKE MD Unavailable Unavailable Jamie BROOKE MD Unavailable Unavailable Jamie BROOKE MD Unavailable Unavailable Jamie BROOKE MD Unavailable Unavailable Jamie BROOKE MD Unavailable Unavailable Jamie BROOKE MD Unavailable Unavailable Jamie BROOKE MD Unavailable Unavailable Jamie BROOKE MD Unavailable Unavailable Jamie BROOKE MD Unavailable Unavailable Jamie BROOKE MD Unavailable Unavailable Jamie BROOKE MD Unavailable Unavailable Jamie BROOKE MD Unavailable Unavailable Jamie BROOKE MD Unavailable Unavailable Jamie BROOKE MD Unavailable Unavailable Jamie BROOKE MD Unavailable Unavailable Jamie BROOKE MD Unavailable Unavailable Jamie BROOKE MD Unavailable Unavailable Jamie BROOKE MD Unavailable Unavailable Jamie BROOKE MD Unavailable Unavailable Jamie BROOKE MD Unavailable Unavailable Jamie BROOKE MD Unavailable Unavailable Jamie BROOKE MD Unavailable Unavailable Jamie BROOKE MD Unavailable Unavailable Jamie BROOKE MD Unavailable Unavailable Jamie BROOKE MD Unavailable Unavailable Jamie BROOKE MD Unavailable Unavailable Jamie BROOKE MD Unavailable Unavailable Jamie BROOKE MD Unavailable Unavailable Jamie BROOKE MD Unavailable Unavailable Jamie BROOKE MD Unavailable Unavailable Jamie BROOKE MD Unavailable Unavailable Jamie BROOKE MD Unavailable Unavailable Jamie BROOKE MD Unavailable Unavailable Jamie BROOKE MD Unavailable Unavailable Jamie BROOKE MD Unavailable Unavailable Jamie BROOKE MD Unavailable Unavailable Jamie BROOKE MD Unavailable Unavailable Jamie BROOKE MD Unavailable Unavailable Jamie BROOKE MD Unavailable Unavailable Harris FERREIRA MD Unavailable Unavailable Harris FERREIRA MD Unavailable Unavailable Harris FERREIRA MD Unavailable Unavailable Harris FERREIRA MD Unavailable Unavailable Harris FERREIRA MD Unavailable Unavailable Harris FERREIRA MD Unavailable Unavailable Harris FERREIRA MD Unavailable Unavailable Harris FERREIRA MD Unavailable Unavailable Harris FERREIRA MD Unavailable Unavailable Harris FERREIRA MD Unavailable Unavailable Harris FERREIRA MD Unavailable Unavailable Harris FERREIRA MD Unavailable Unavailable Harris FERREIRA MD Unavailable Unavailable Harris FERREIRA MD Unavailable Unavailable [place], F Bradley PA Unavailable Unavailable Cam, F Bradley PA Unavailable Unavailable Cam, F Bradley PA Unavailable Unavailable [place], F Bradley PA Unavailable Unavailable [place], F Bradley PA Unavailable Unavailable [place], F Bradley PA Unavailable Unavailable Cam, F Bradley PA Unavailable Unavailable Cam, F Bradley PA Unavailable Unavailable Cam, F Bradley PA Unavailable Unavailable [place], F Bradley PA Unavailable Unavailable LUIS CHOWDHURY MD Unavailable Unavailable GINRHYS CLIFTONA Unavailable Unavailable GINRHYS CLIFTONA Unavailable Unavailable GINZRHYS AADMA Unavailable Unavailable GILUIS DURON MD Unavailable Unavailable GILUIS DURON MD Unavailable Unavailable GINLUIS CLIFTON MD Unavailable Unavailable GINRHYS CLIFTONA Unavailable Unavailable GINRHYS CLIFTONA Unavailable Unavailable GILUIS DURON MD Unavailable Unavailable GINLUIS CLIFTON MD Unavailable Unavailable GILUIS DURON MD Unavailable Unavailable GINRHYS CLIFTONA Unavailable Unavailable GINRHYS CLIFTONA Unavailable Unavailable GINRHYS CLIFTONA Unavailable Unavailable GILUIS DURON MD Unavailable Unavailable GILUIS DURON MD Unavailable Unavailable GILUIS DURON MD Unavailable Unavailable GINRHYS CLIFTONA Unavailable Unavailable GINRHYS CLIFTONA Unavailable Unavailable GINLUIS CLIFTON MD Unavailable Unavailable GILUIS DURON MD Unavailable Unavailable GILUIS DURON MD Unavailable Unavailable GINLUIS CLIFTON MD Unavailable Unavailable GINRHYS CLIFTONA Unavailable Unavailable GINETIENNE LUIS Unavailable Unavailable GINZJAIR LUIS Unavailable Unavailable GINRHYS CLIFTONA Unavailable Unavailable GINRHYS CLIFTONA Unavailable Unavailable GINRHYS CLIFTONA Unavailable Unavailable GINZRHYS ADAMA Unavailable Unavailable GINZJAIR LUIS Unavailable Unavailable GINZJAIR LUIS MD Unavailable Unavailable GINRHYS CLIFTONA Unavailable Unavailable GINZJAIR LUIS Unavailable Unavailable GINZBURG, LUIS MD Unavailable Unavailable GINZJAIR LUIS MD Unavailable Unavailable GINZBURG LUIS MD Unavailable Unavailable GINFAWAD CLIFTONASHA Unavailable Unavailable GINETIENNE LUIS MD Unavailable Unavailable GINFAWAD CLIFTONASHA MD Unavailable Unavailable GINZJAIR LUIS MD Unavailable Unavailable GINZJAIR LUIS MD Unavailable Unavailable GINZBURG LUIS MD Unavailable Unavailable GINZBURG LUIS MD Unavailable Unavailable GINZBURG LUIS MD Unavailable Unavailable GINZBURG LUIS MD Unavailable Unavailable GINZBURG LUIS MD Unavailable Unavailable GINZBURG LUIS MD Unavailable Unavailable GINZJAIR LUIS Unavailable Unavailable GINZFAWAD ADAMASHA MD Unavailable Unavailable GINZFAWAD ADAMASHA MD Unavailable Unavailable GINZJAIR LUIS MD Unavailable Unavailable GINZJAIR LUIS MD Unavailable Unavailable GINZJAIR LUIS MD Unavailable Unavailable GINETIENNE LUIS MD Unavailable Unavailable GINZJAIR LUIS MD Unavailable Unavailable GINZFAWAD ADAMASHA MD Unavailable Unavailable GINZJAIR LUIS MD Unavailable Unavailable GINZJAIR LUIS MD Unavailable Unavailable GINZFAWAD ADAMASHA Unavailable Unavailable GINRHYS CLIFTONA Unavailable Unavailable GINRHYS CLIFTONA Unavailable Unavailable GINZJAIR LUIS MD Unavailable Unavailable GINZFAWAD ADAMASHA MD Unavailable Unavailable GINZJAIR LUIS MD Unavailable Unavailable GINZFAWAD ADAMASHA Unavailable Unavailable GINFAWAD CLIFTONASHA Unavailable Unavailable GINZFAWAD ADAMASHA Unavailable Unavailable GINZJAIR LUIS MD Unavailable Unavailable GINZJAIR LUIS MD Unavailable Unavailable GINZJAIR LUIS MD Unavailable Unavailable Hadian, Josue Unavailable Unavailable Hadian, Josue Unavailable Unavailable Hadian, Josue Unavailable Unavailable Hadian, Josue Unavailable Unavailable Hadian, Josue Unavailable Unavailable Hadian, Josue Unavailable Unavailable Hadian, Josue Unavailable Unavailable Hadian, Josue Unavailable Unavailable Hadian, Josue Unavailable Unavailable Hadian, Josue Unavailable Unavailable Hadian, Josue Unavailable Unavailable Hadian, Josue Unavailable Unavailable Hadian, Josue Unavailable Unavailable Hadian, Josue Unavailable Unavailable Hadian, Josue Unavailable Unavailable Hadian, Josue Unavailable Unavailable Hadian, Josue Unavailable Unavailable Hadian, Josue Unavailable Unavailable Hadian, Josue Unavailable Unavailable Hadian, Josue Unavailable Unavailable Hadian, Josue Unavailable Unavailable Hadian, Josue Unavailable Unavailable Hadian, Josue Unavailable Unavailable Hadian, Josue Unavailable Unavailable Hadian, Josue Unavailable Unavailable Hadian, Josue Unavailable Unavailable Hadian, Josue Unavailable Unavailable Hadian, Josue Unavailable Unavailable Hadian, Josue Unavailable Unavailable Hadian, Josue Unavailable Unavailable Hadian, Josue Unavailable Unavailable Hadian, Josue Unavailable Unavailable Hadian, Josue Unavailable Unavailable Hadian, Josue Unavailable Unavailable Hadian, Josue Unavailable Unavailable Hadian, Josue Unavailable Unavailable Hadian, Josue Unavailable Unavailable Hadian, Josue Unavailable Unavailable Hadian, Josue Unavailable Unavailable Hadian, Josue Unavailable Unavailable Hadian, Josue Unavailable Unavailable Hadian, Josue Unavailable Unavailable ZEGIL, D ELIJAH MONKEY KEEPER Unavailable Unavailable ZEGIL, D ELIJAH MONKEY KEEPER Unavailable Unavailable ZEGIL, D ELIJAH MONKEY KEEPER Unavailable Unavailable KEL, ABRAN PA Unavailable Unavailable KEL, ABRAN PA Unavailable Unavailable KEL, ABRAN PA Unavailable Unavailable KEL, ABRAN PA Unavailable Unavailable KEL, ABRAN PA Unavailable Unavailable KEL, ABRAN PA Unavailable Unavailable KEL, ABRAN PA Unavailable Unavailable UNKNOWN Unavailable Unavailable Jamie BROOKE MD Unavailable Unavailable Jamie BROOKE MD Unavailable Unavailable Jamie BROOKE MD Unavailable Unavailable Jamie BROOKE MD Unavailable Unavailable Jamie BROOKE MD Unavailable Unavailable Jamie BROOKE MD Unavailable Unavailable Jamie BROOKE MD Unavailable Unavailable Jamie BROOKE MD Unavailable Unavailable Jamie BROOKE MD Unavailable Unavailable Jamie BROOKE MD Unavailable Unavailable Jamie BROOKE MD Unavailable Unavailable Jamie BROOKE MD Unavailable Unavailable Jamie BROOKE MD Unavailable Unavailable Jamie BROOKE MD Unavailable Unavailable Jamie BROOKE MD Unavailable Unavailable Jamie BROOKE MD Unavailable Unavailable Jamie BROOKE MD Unavailable Unavailable Jamie BROOKE MD Unavailable Unavailable Jamie BROOKE MD Unavailable Unavailable Jamie BROOKE MD Unavailable Unavailable Jamie BROOKE MD Unavailable Unavailable Jamie BROOKE MD Unavailable Unavailable Jamie BROOKE MD Unavailable Unavailable Jamie BROOKE MD Unavailable Unavailable Jamie BROOKE MD Unavailable Unavailable Jamie BROOKE MD Unavailable Unavailable Jamie BROOKE MD Unavailable Unavailable Jamie BROOKE MD Unavailable Unavailable Jamie BROOKE MD Unavailable Unavailable Jamie BROOKE MD Unavailable Unavailable Jamie BROOKE MD Unavailable Unavailable Jamie BROOKE MD Unavailable Unavailable Jamie BROOKE MD Unavailable Unavailable Jamie BROOKE MD Unavailable Unavailable Jamie BROOKE MD Unavailable Unavailable Jamie BROOKE MD Unavailable Unavailable Jamie BROOKE MD Unavailable Unavailable Jamie BROOKE MD Unavailable Unavailable Jamie BROOKE MD Unavailable Unavailable Jamie BROOKE MD Unavailable Unavailable Jamie BROOKE MD Unavailable Unavailable Jamie BROOKE MD Unavailable Unavailable Jamie BROOKE MD Unavailable Unavailable Jamie BROOKE MD Unavailable Unavailable Jamie BROOKE MD Unavailable Unavailable Jamie BROOKE MD Unavailable Unavailable Jamie BROOKE MD Unavailable Unavailable Jamie BROOKE MD Unavailable Unavailable Jamie BROOKE MD Unavailable Unavailable Jamie BROOKE MD Unavailable Unavailable Jamie BROOKE MD Unavailable Unavailable Jamie BROOKE MD Unavailable Unavailable Jamie BROOKE MD Unavailable Unavailable Jamie BROOKE MD Unavailable Unavailable Jamie BROOKE MD Unavailable Unavailable Jamie BROOKE MD Unavailable Unavailable Jamie BROOKE MD Unavailable Unavailable Anderson, C Angélica CPNP-PC Unavailable Unavailable Anderson, C Angélica CPNP-PC Unavailable Unavailable Anderson, C Angélica CPNP-PC Unavailable Unavailable Anderson, C Angélica CPNP-PC Unavailable Unavailable Anderson, C Angélica CPNP-PC Unavailable Unavailable Anderson, C Angélica CPNP-PC Unavailable Unavailable Anderson, C Angélica CPNP-PC Unavailable Unavailable Anderson, C Angélica CPNP-PC Unavailable Unavailable Anderson, C Angélica CPNP-PC Unavailable Unavailable Anderson, C Angélica CPNP-PC Unavailable Unavailable Anderson, C Angélica CPNP-PC Unavailable Unavailable Anderson, C Angélica CPNP-PC Unavailable Unavailable Nelsy Anderson CPNP-PC Unavailable Unavailable BROWN, YONI MAYE SUPPLY CHAIN BUYER Unavailable Unavailable BROWN, YONI MAYE SUPPLY CHAIN BUYER Unavailable Unavailable BROWN, YONI MAYE SUPPLY CHAIN BUYER Unavailable Unavailable BROWN, YONI MAYE SUPPLY CHAIN BUYER Unavailable Unavailable BROWN, YONI MAYE SUPPLY CHAIN BUYER Unavailable Unavailable BROWN, YONI MAYE SUPPLY CHAIN BUYER Unavailable Unavailable BROWN, YONI MAYE SUPPLY CHAIN BUYER Unavailable Unavailable BROWN, YONI MAYE SUPPLY CHAIN BUYER Unavailable Unavailable BROWN, YONI MAYE SUPPLY CHAIN BUYER Unavailable Unavailable BROWN, YONI MAYE SUPPLY CHAIN BUYER Unavailable Unavailable BROWN, YONI MAYE SUPPLY CHAIN BUYER Unavailable Unavailable BROWN, YONI MAYE SUPPLY CHAIN BUYER Unavailable Unavailable BROWN, YONI MAYE SUPPLY CHAIN BUYER Unavailable Unavailable BROWN, YONI MAYE SUPPLY CHAIN BUYER Unavailable Unavailable BROWN, YONI MAYE SUPPLY CHAIN BUYER Unavailable Unavailable BROWN, YONI MAYE SUPPLY CHAIN BUYER Unavailable Unavailable BROWN, YONI MAYE SUPPLY CHAIN BUYER Unavailable Unavailable BROWN, YONI MAYE SUPPLY CHAIN BUYER Unavailable Unavailable BROWN, YONI MAYE SUPPLY CHAIN BUYER Unavailable Unavailable BROWN, YONI MAYE SUPPLY CHAIN BUYER Unavailable Unavailable BROWN, YONI MAYE SUPPLY CHAIN BUYER Unavailable Unavailable BROWN, YONI MAYE SUPPLY CHAIN BUYER Unavailable Unavailable BROWN, YONI MAYE SUPPLY CHAIN BUYER Unavailable Unavailable BROWN, YONI MAYE SUPPLY CHAIN BUYER Unavailable Unavailable BROWN, YONI MAYE SUPPLY CHAIN BUYER Unavailable Unavailable BROWN, YONI MAYE SUPPLY CHAIN BUYER Unavailable Unavailable BROWN, YONI MAYE SUPPLY CHAIN BUYER Unavailable Unavailable BROWN, YONI MAYE SUPPLY CHAIN BUYER Unavailable Unavailable BROWN, YONI MAYE SUPPLY CHAIN BUYER Unavailable Unavailable BROWN, YONI MAYE SUPPLY CHAIN BUYER Unavailable Unavailable BROWN, YONI MAYE SUPPLY CHAIN BUYER Unavailable Unavailable BROWN, YONI MAYE SUPPLY CHAIN BUYER Unavailable Unavailable BROWN, YONI MAYE SUPPLY CHAIN BUYER Unavailable Unavailable BROWN, YONI MAYE SUPPLY CHAIN BUYER Unavailable Unavailable BROWN, YONI MAYE SUPPLY CHAIN BUYER Unavailable Unavailable BROWN, YONI MAYE SUPPLY CHAIN BUYER Unavailable Unavailable BROWN, YONI MAYE SUPPLY CHAIN BUYER Unavailable Unavailable BROWN, YONI MAYE SUPPLY CHAIN BUYER Unavailable Unavailable Abran Frey Unavailable Unavailable Re-disclosure Warning The records that you are about to access may contain information from federally-assisted alcohol or drug abuse programs. If such information is present, then the following federally mandated warning applies: This information has been disclosed to you from records protected by federal confidentiality rules (42 CFR part 2). The federal rules prohibit you from making any further disclosure of this information unless further disclosure is expressly permitted by the written consent of the person to whom it pertains or as otherwise permitted by 42 CFR part 2. A general authorization for the release of medical or other information is NOT sufficient for this purpose. The Federal rules restrict any use of the information to criminally investigate or prosecute any alcohol or drug abuse patient.The records that you are about to access may contain highly sensitive health information, the redisclosure of which is protected by Article 27-F of the [facility] Public Health law. If you continue you may have access to information: Regarding HIV / AIDS; Provided by facilities licensed or operated by the [facility] Office of Mental Health; or Provided by the [facility] Office for People With Developmental Disabilities. If such information is present, then the following [facility] mandated warning applies: This information has been disclosed to you from confidential records which are protected by state law. State law prohibits you from making any further disclosure of this information without the specific written consent of the person to whom it pertains, or as otherwise permitted by law. Any unauthorized further disclosure in violation of state law may result in a fine or [place] health [facility] sentence or both. A general authorization for the release of medical or other information is NOT sufficient authorization for further disc losure. Allergies and Adverse Reactions Type Description Substance Reaction Status Data Source(s ) Propensity to adverse reactions NO KNOWN ALLERGIES NO KNOWN ALLERGIES [facility] Drug allergy Drug allergy No Known Allergies [facility] Family History Family Member Name Family Member Gender Family Member Status Date o f Status Description Data Source(s) Unknown Male Problem MEDENT ([facility], ) Unknown Male Problem MEDENT ([facility]) Unknown Unknown Encounters Encounter Providers Location Date Indications Data Source(s ) Unknown [address] [facility] [address] 03/11/2021 12:00:00 AM EDT eCW1 ([facility]) Outpatient Attender: SINCERE RED DO ED-LAB 03/08 08:19:00 AM EDT - 03/08/2021 08:20:00 AM EDT [id number] [facility] N6009 Patient discharged. Outpatient Attender: Nixon Bowens NP ED-LABPNP 02/17 11:22:00 AM EDT - 02/17/2021 11:23:00 AM EDT Z20.828 [facility] Z20.828 Patient discharged. Unknown [address] [facility] [place] [address] 01/28/2021 12:00:00 AM EDT eCW1 ([facility]) Outpatient Attender: Angélica Karimiharris MONTILLANP-PC ED-LABPNP 01/20/2021 02:43:00 PM EDT - 01/20/2021 02:44:00 PM EDT Z1159 [facility] Z1159 Patient discharged. Outpatient Attender: CLAIRE Mosquera/Tye/Obed/Lorenza de la cruz 01/11/2021 03:30:00 PM EDT MEDENT ([facility] Outpatient [address] [facility] [address] 01/08/2021 12:00:00 AM EDT eCW1 ([facility]) Unknown [address] [facility] [address] 12/23/2020 12:00:00 AM EDT eCW1 ([facility]) Outpatient Attender: ARTUR BROOKE MD [id number] 12:00:00 AM EDT - 12/11/2020 12:24:36 PM [facility] Outpatient Attender: ARTUR BROOKE MD 12/01/2020 12:00:00 AM [facility] Unknown [address] [facility] [address] 11/05/2020 12:00:00 AM EDT eCW1 ([facility]) Outpatient Attender: ARTUR BROOKE MD 10/30/2020 12:00:00 AM E [facility] Outpatient Attender: MAYE KNAPP NP CPSCAORT-CPSGNOBG 10/04 11:46:00 AM EDT - 10/28/2020 11:47:[facility] Attender: ARTUR CedeñoA-XXPBOBGY 10/26/2020 06:31:38 PM [facility] Outpatient CPSCAORT-LABEJN 10/26/2020 03:17:00 PM EDT [facility] Outpatient Attender: ARTUR BROOKE MD ED-LAB 11:01:00 AM EDT - 10/26/2020 11:02:00 AM EDT R350 [facility] R350 Patient discharged. Outpatient Attender: CLAIRE Mosquera/Tye/Obed/Lorenza de la cruz 09/30/2020 10:45:00 AM EDT MEDENT ([facility], ) Outpatient Attender: ARTUR BROOKE MD 07A-[id number] 09/21/2020 03:33:02 PM [facility] Outpatient Attender: ARTUR CedeñoA-XXPBOBGY 09/17/2020 12:17:20 PM [facility] Outpatient Attender: ARTUR BROOKE MD 09/16/2020 11:07:42 AM E DT Lab [facility] Outpatient Attender: ARTUR BROOKE MDAdmitter: ARTUR BROOKE MD 09/16/2020 09:50:00 AM EDT - 09/17/2020 01:42:00 PM EDT PELVIC PAIN, DYSPAREUNIA [facility] PELVIC PAIN, DYSPAREUNIA Patient discharged. ( in Healthcare facility) Attender: ARTUR BROOKE MDAdmitter: ARTUR BROOKE MDConsultant: SINCERE RED DO 09/16/2020 09:50:00 AM [facility] Outpatient Attender: ARTUR BROOKE MD ED-LABPNP 08:26:00 AM EDT - 09/11/2020 08:27:00 AM EDT [id number] [facility] [id number] Patient discharged. Outpatient [address] [facility] [place] [address] 09/04/2020 12:00:00 AM EDT eCW1 ([facility]) Outpatient Attender: ARTUR BROOKE MD ED-LABGH 08:01:00 AM EDT - 09/01/2020 08:02:00 AM EDT R10.2 [facility] R10.2 Patient discharged. Outpatient Attender: ARTUR BROOKE MD [id number]-[id number] 12:00:00 AM EDT - 08/27/2020 04:25:31 PM [facility] Outpatient Attender: MAGDALENA SHAKIR 08/27/2020 12:00:00 AM [facility] Unknown [address] [facility], [facility] [address] 08/21/2020 12:00:00 AM EDT [facility] ([facility]) Outpatient Attender: ARTUR BROOKE MD [id number]-[id number] 08/18/2020 05:00:32 PM [facility] Outpatient Attender: LUIS CHOWDHURY MD [id number] 12:00:00 AM EDT - 08/17/2020 04:43:32 PM [facility] Outpatient Attender: MAYE KNAPP NP CPSCAORT-CPSGNOBG 07/07 01:39:00 PM EST - 07/30/2020 01:40:00 PM EST [facility] Patient discharged. Outpatient Attender: MAYE KNAPP NP CPSCAORT-CPSGNOBG 06/2020 03:01:00 PM EST - 07/06/2020 03:02:00 PM EST [facility] Patient discharged. Outpatient Attender: [facility]eng Headley [facility] 06/29/2020 08:0 2:00 AM EST 2 COVID VACCINE [facility] 2 COVID VACCINE Outpatient Attender: UNKNOWN CPSCAORT-LABEJN 06/11/2020 05:45:00 PM E [facility] Outpatient Attender: SYDNEE NULL MD, ED-LABPNP 2020 04:09:00 PM EST - 06/11/2020 04:10:00 PM EST Z124 [facility] Z124 Patient discharged. Outpatient Attender: SYDNEE NULL MD CPSCAORT-CPSGNOBG 12/2020 03:04:00 PM EST - 06/11/2020 03:05:00 PM EST Z12.4 [facility] Z12.4 Patient discharged. Outpatient Attender: Seng Headley [facility] 06/01/2020 09:1 8:00 AM EST COVID VACCINE 1 [facility] COVID VACCINE 1 Outpatient CPSCAORT-LABEJN 04/17/2020 09:48:00 AM [facility] Outpatient Attender: Josue Vaca ED-LABPNP 0 07:26:00 AM EST - 04/17/2020 07:27:00 AM EST POSS EXPOSURE [facility] POSS EXPOSURE Patient discharged. Preadmit Attender: JUDD FERREIRA MD ED-ED 02/28/2020 09:35:00 AM EDT POSSIBLE UTI [facility] POSSIBLE UTI Outpatient Attender: MAYE KNAPP NP CPSCAORT-CPSGNOBG 02/03 03:06:00 PM EDT - 02/19/2020 03:07:00 PM EDT [facility] Patient discharged. Outpatient Attender: MAYE KNAPP NP CPSCAORT-CPSGNOBG 07/2019 10:31:00 AM EDT - 02/05/2020 10:32:00 AM EDT [facility] Patient discharged. Emergency Attender: ELIJAH POWELLP ED-ED 06/2019 08:44:00 PM EDT - 02/04/2020 10:45:00 PM EDT STOMACH PAIN [facility] STOMACH PAIN Patient discharged. Outpatient Attender: SINCERE REASON DO ED-LAB 01/22 09:32:00 AM EDT - 01/23/2020 09:33:00 AM EDT 90 [facility] N390 Patient discharged. Outpatient Attender[facility] 05:23:00 PM EDT - 01/21/2020 05:24:00 PM EDT [address] N390 Patient discharged. Emergency Attender: Bradley BECKER ED-ED 09:18:00 PM EDT - 03/27/2019 09:47:00 PM EDT HEADACHE,NECK PAIN,SORE THROAT [facility] HEADACHE,NECK PAIN,SORE THROAT Patient discharged. Emergency Attender: Abran Jjender: ABRAN BECKER ED-ED 03/08/2019 07:50:00 PM EDT - 03/08/2019 09:32:00 PM EDT FREQUENT URINATION [facility] FREQUENT URINATION Patient discharged. Emergency Attender: Nixon Bowens NP ED-ED 07/02 04:32:00 PM EST - 07/02/2018 10:58:00 PM EST INFECTION/POST OP [facility] INFECTION/POST OP Outpatient Attender: [id number] Joann Wong MD ED-SDCSDC 06/21/2018 08:44:00 AM EST - 06/21/2018 03:45:00 PM EST PELVIC PAIN [facility] PELVIC PAIN Emergency Attender: JUDD FERREIRA MD ED-ED 0 02/09/2018 10:55:00 AM EDT - 02/09/2018 01:32:00 PM EDT SEVERE ABD PAIN [facility] SEVERE ABD PAIN Immunizations Vaccine Date Status Description Data Source(s) COVID-19 VACCINE Moderna 06/29/2020 12:00:00 AM EST completed [facility] Vaccine Series Complete: YESThis Data wa s Submitted to [facility] Via [employer]. COVID-19 VACCINE Moderna 06/01/2020 12:00:00 AM EST completed [facility] Vaccine Series Complete: NOThis Data was Submitted to [facility] Via [employer]. Medications Medication Brand Name Start Date Product Form Dose Route Admi nistrative Instructions Pharmacy Instructions Status Indications Reaction Description Data Source(s) 100,000 unit/gram 11/05/2020 12:00:00 AM EDT powder 30 APPLY GENEROUSLY TO AFFECTED AREA(S) TWICE A DAY FOR 10 DAYS, PLEASE CALL OFFICE IF RASH DOESN'T GO AWAY APPLY GENEROUSLY TO AFFECTED AREA(S) TWI CE A DAY FOR 10 DAYS, PLEASE CALL OFFICE IF RASH DOESN'T GO AWAY SOLD: 11/05/2020 [facility] 800-160 mg 10/27/2020 12:00:00 AM EDT tablet 14 TAKE ONE TABLET BY MOUTH EVERY 12 HOURS DIRECTED FOR 7 DAYS TAKE ONE TABLET BY MOUTH EVERY 12 HOURS DIRECTED FOR 7 DAYS SOLD: 10/27/2020 [facility] Hyoscyamine Sulfate 0.12 MG / Methenamin e 81.6 MG / Methylene blue 10.8 MG / phenyl salicylate 36.2 MG / Sodium Phosphate, Monobasic 40.8 MG Oral Tablet [Utira] Utira-C 81.6 MG Oral Tablet Utira-C 81.6 MG Oral Tablet 08/17/2020 12:00:00 AM EDT 1 {tbl} Oral active Take 1 tablet by mouth Three times daily as needed [facility] 10 mg 07/30/2020 12:00:00 AM EST tablet 20 TAKE ONE TABLET BY MOUTH EVERY 6 HOURS NEEDED WITH FOOD OR MILK FOR 5 DAYS TAKE ONE TABLET BY MOUTH EVERY 6 HOURS NEEDED WITH FOOD OR MILK FOR 5 DAYS SOLD: 07/30/2020 [facility] Ketorolac Tromethamine 10 MG Oral Tablet Ketorolac Tromethamine 10 MG Oral Tablet (TORADOL) Ketorolac Tromethamine 10 MG Oral Tablet (TORADOL) 12:00:00 AM EST active TAKE ONE TABLET BY MOUTH EVERY 6 HOURS NEEDED WITH FOOD OR MILK FOR 5 DAYS [facility] 150 mg 07/20/2020 12:00:00 AM EST tablet 1 TAKE 1 TABLET BY MOUTH ONCE TAKE 1 TABLET BY MOUTH ONCE SOLD: 07/20/2020 [facility] doxycycline hyclate 100 MG Oral Capsule DOXYCYCLINE HYCLATE 07/06/2020 12:00:00 AM EST capsule 20 TAKE ONE CAPSULE BY MOUTH TW ICE A DAY FOR 10 DAYS TAKE ONE CAPSULE BY MOUTH TWICE A DAY FOR 10 DAYS SOLD: 07/06/2020 [facility] Sulfamethoxazole 800 MG / Trimethoprim 160 MG Oral Tab let 800-160 mg SULFAMETHOXAZOLE/TRIMETHOPRIM 05/22/2020 12:00:00 AM EST tablet 20 TAKE ONE TABLET BY MOUTH TWICE A DAY FOR 10 DAYS TAKE ONE TABLET BY MOUTH TWICE A DAY FOR 10 DAYS SOLD: 05/22/2020 [facility] 150 mg 03/10/2020 12:00:00 AM EDT tablet 1 TAKE ONE TABLET BY MOUTH ONCE TAKE ONE TABLET BY MOUTH ONCE SOLD: 03/10/2020 [facility] 0.5 mg 02/13/2020 12:00:00 AM EDT tablet 45 TAKE ONE TABLET BY MOUTH TWICE A DAY NEEDED FOR ANXIETY OR STRESS MAXIMUM DAILY DOSE = 2 TAKE ONE TABLET BY MOUTH TWICE A DAY NEEDED FOR ANXIETY OR STRESS MAXIMUM DAILY DOSE = 2 SOLD: 02/18/2020 [facility] 137 mcg (0.1 %) 02/12/2020 12:00:00 AM EDT aerosol,spray 30 SPRAY 2 SPRAYS IN EACH NOSTRIL TWO TIMES A DAY SPRAY 2 SPRAYS IN EACH NOSTRIL TWO TIMES A DAY SOLD: 02/12/2020 [facility] 137 mcg (0.1 %) 02/12/2020 12:00:00 AM EDT aerosol,spray 30 SPRAY 2 SPRAYS IN EACH NOSTRIL TWO TIMES A DAY SPRAY 2 SPRAYS IN EACH NOSTRIL TWO TIMES A DAY SOLD: 03/09/2020 [facility] 137 mcg (0.1 %) 02/12/2020 12:00:00 AM EDT aerosol,spray 30 SPRAY 2 SPRAYS IN EACH NOSTRIL TWO TIMES A DAY SPRAY 2 SPRAYS IN EACH NOSTRIL TWO TIMES A DAY SOLD: 04/01/2020 [facility] 4 mg 02/05/2020 12:00:00 AM EDT tablet,disintegrating 1 0 DISSOLVE ONE TABLET ON TONGUE EVERY 4 HOURS DISSOLVE ONE TABLET ON TONGUE EVERY 4 HOURS SOLD: 02/05/2020 [facility] doxycycline hyclate 100 MG Oral Capsule DOXYCYCLINE HYCLATE 02/05/2020 12:00:00 AM EDT capsule 20 TAKE ONE CAPSULE BY MOUTH TW ICE A DAY FOR 10 DAYS TAKE ONE CAPSULE BY MOUTH TWICE A DAY FOR 10 DAYS SOLD: 02/05/2020 [facility] Sulfamethoxazole 800 MG / Trimethoprim 160 MG Oral Tab let 800-160 mg SULFAMETHOXAZOLE/TRIMETHOPRIM 01/21/2020 12:00:00 AM EDT tablet 14 TAKE ONE TABLET BY MOUTH EVERY 12 HOURS TAKE ONE TABLET BY MOUTH EVERY 12 HOURS SOLD: 01/21/2020 [facility] 137 mcg (0.1 %) 11/01/2019 12:00:00 AM EDT aerosol,spray 30 SPRAY 2 SPRAYS IN EACH NOSTRIL TWO TIMES A DAY SPRAY 2 SPRAYS IN EACH NOSTRIL TWO TIMES A DAY SOLD: 01/21/2020 [facility] Insurance Providers Payer name Policy type / Coverage type Policy ID Covered alliance party ID Covered alliance party's relationship to dueñas Policy Dueñas Plan Information EXCELLUS C [id number] Self [id number] TYLER CARE [id number] S [id number] TYLER [id number] SP [id number] [employer] PPO 302/307 [id number] SP [id number] EXCELLUS H [id number] Self [id number] EXCELLUS H [id number] Self [id number] FINANCIAL ASSISTANCE 445 S 445 [employer] [id number] S [id number] [place] [employer] [place] [id number] S [id number] FINANCIAL ASSISTANCE [id number] S [id number] TYLER CARE [id number] S [id number] TYLER CARE [id number] S [id number] TYLER CARE [id number] S [id number] ANSI-Commercial [id number] ANSI-Commercial [id number] [employer] BCBS Health Maintenance Organization (HMO) [id number] Self [id number] [facility] [id number] Self [id number] SELF PAY ONLY [id number] SP [id number] T[place] CARE [place] O [id number] S [id number] [place] Health Maintenance Organization (O) [id number] Se lf TYLER [id number] 18 [id number] TYLER -CLINIC [id number] 18 [id number] MEDICAID [id number] S [id number] [facility] [place] MEDICAL CLAIMS -O/P [id number] 01 [id number] BLUE CROSS HMO BLUE -O/P [id number] BLUE CROSS HMO BLUE -CLINIC [id number] NO FAULT -O/P [id number] 18 [id number] BLUE CROSS -RECURRING [id number] 18 [id number] [place] PPO 302/307 [id number] SP [id number] [place] [employer] [place] [id number] inspector timers employed [id number] [employer] [place] [id number] inspector timers employed [id number] S [id number] SELF PAY EXCELLUS [place]UE [place]OSS BLUE SHIELD HEA [id number] S [id number] EXCELLUS [employer] [place] [id number] S [id number] EXCELLUS BCBS B [id number] S [id number] [place] PPO 302/307 [id number] SP [id number] EXCELLUS BLUE CROSS BLUE SHIELD HEA [id number] S [id number] [place] [place] PPO 302/307 [id number] SP [id number] [employer] BCBS Health Maintenance Organization (HMO) [id number] Self [id number] Problems, Conditions, and Diagnoses Code Display Name Description Problem Type Effective Dates Data Source(s) R35.0 Frequency of micturition FREQUENCY OF MICTURITION Diag nosis 10/26/2020 11:01:00 AM [facility] N94.19 Other specified dyspareunia OTHER SPECIFIED DYSPAREUNI A Diagnosis 09/01/2020 08:01:00 AM [facility] N71.9 Inflammatory disease of uterus, unspecif ied INFLAMMATORY DISEASE OF UTERUS, UNSPECIFIED Diagnosis 09/01/2020 08:01:00 AM [facility] R10.2 Pelvic and perineal pain PELVIC AND PERINEAL PAIN Diag nosis 09/01/2020 08:01:00 AM [facility] R10.2 Pelvic and perineal pain PELVIC AND PERINEAL PAIN Diag nosis 07/30/2020 01:39:00 PM [facility] Z12.4 Encounter for screening for malignant ne oplasm of cervix ENCOUNTER FOR SCREENING FOR MALIGNANT NEOPLASM OF CERVIX Diagnosis 06/11/2020 04:09: 00 PM [facility] R19.7 Diarrhea, unspecified DIARRHEA, UNSPECIFIED Diagnosis 02/05/2020 10:31:00 AM [facility] Z87.440 Personal history of urinary (tract) infe ctions PERSONAL HISTORY OF URINARY (TRACT) INFECTIONS Diagnosis 02/04/2020 08:44:00 PM [facility] R19.7 Diarrhea, unspecified DIARRHEA, UNSPECIFIED Diagnosis 02/04/2020 08:44:00 PM [facility] R10.31 Right lower quadrant pain RIGHT LOWER QUADRANT PAIN Di agnosis 02/04/2020 08:44:00 PM [facility] N39.0 Urinary tract infection, site not specif ied URINARY TRACT INFECTION, SITE NOT SPECIFIED Diagnosis 01/21/2020 05:23:00 PM [facility] spital Surgeries/Procedures Procedure Description Date Indications Data Source(s) OFFICE OUTPATIENT VISIT 25 MINUTES 01/11/2021 12:00:00 AM [facility] ([facility], ) URNLS DIP STICK/TABLET REAGENT AUTO MICROSCOPY URINALYSIS AU TO W/SCOPE 10/26/2020 12:00:00 AM [facility] OFFICE OUTPATIENT NEW 30 MINUTES 09/30/2020 12:00:00 A M [facility] ([facility], ) COLLECTION VENOUS BLOOD VENIPUNCTURE ROUTINE VENIPUNCTURE 12:00:00 AM [facility] BLOOD COUNT COMPLETE AUTO&AUTO DIFRNTL WBC COUNT COMPLETE CB C W/AUTO DIFF WBC 09/01/2020 12:00:00 AM [facility] BASIC METABOLIC PANEL CALCIUM TOTAL METABOLIC PANEL TOTAL CA 09/01/2020 12:00:00 AM [facility] outpatient clinic visit for assessment and ma oh of a patient Hospital Outpatient Clinic Visit 07/30/2020 12:00:00 AM [facility] URNLS DIP STICK/TABLET RGNT NON-AUTO W/O MICRSCP URINALYSIS NONAUTO W/O SCOPE 07/30/2020 12:00:00 AM [facility] CYTP CERV/VAG AUTO THIN LAYER PREP MNL SCREEN CYTOPATH C/V T HIN LAYER 06/11/2020 12:00:00 AM [facility] Infusion, normal saline solution , 1000 cc 02/05/2020 12:00:[address] AM [facility] [address] ABDOMEN & PELVIS W/O CONTRAST MATERIAL CT ABD & PELVIS W/ O CONTRAST 02/04/2020 12:00:00 AM [facility] URNLS DIP STICK/TABLET RGNT AUTO W/O MICROSCOPY URINALYSIS A UTO W/O SCOPE 02/04/2020 12:00:00 AM [facility] COMPREHENSIVE METABOLIC PANEL COMPREHEN METABOLIC PANEL 06/2019 12:00:00 AM [facility] Injection, ondansetron hydrochloride, per 1 mg 020 12:00:00 AM [facility] THER PROPH/DX NJX IV PUSH SINGLE/1ST SBST/DRUG THER/PROPH/DI AG INJ IV PUSH 02/04/2020 12:00:00 AM [facility] IV INFUSION HYDRATION EACH ADDITIONAL HOUR HYDRATE IV INFUSI ON ADD-ON 02/04/2020 12:00:00 AM [facility] EMERGENCY DEPARTMENT VISIT HIGH/URGENT SEVERITY EMERGENCY DE PT VISIT 02/04/2020 12:00:00 AM [facility] SEDIMENTATION RATE RBC NON-AUTOMATED RBC SED RATE NONAUTOMAT ED 01/23/2020 12:00:00 AM [facility] Results ID Date Data Source [id number] 03/08/2021 10:00:00 AM [facility] Imaging Services Department Imaging Report [address] [place] [id number] %(RAD)RES..mtdd.print.filter("line") Name: POONAMLORI Pineda : 1975 Age/Sex: 45F Ordering Provider: Sincere Red, Med Rec #: [id number] Reg Status: DEP REF Room #: Date of Service: 03/08/21 Report Number: [id number] cc:Joseugo Josefa Reason, DO Send Report To: [id number] XRP/XR Chest 2 View [Pa & Lat] Reason for exam: SOLITARY CYST UNSPEC BREAST, PRE OP Comparison: 09-25-2017. FINDINGS: The cardiac and mediastinal silhouettes appear normal and the lungs are clear. The bones and soft tissues are normal. The upper abdomen is unremarkable. IMPRESSION: No acute disease identifiable. REPORT DICTATED BY SUSHIL AVENDAÑO, REVIEWED AND SIGNED BY DR. GASPAR Time portable performed: Fluoroscopy time in seconds: Number of Exposures: Contrast Agent in ml: Method of Administration: REPORT SIGNATURE ON FILE Reported By: Sushil Gaspar MD <Electronically signed by Kvng Gaspar MD> 03/09/21 1221 Dictation Date/Time: 03/08/21 0851 Transcribed Date/Time: 03/08/21 1000 [employer] Machine Keyboard Operator: JANICE Name Value Range Interpretation Code Description Data Elissa rce(s) Supporting Document(s) ID Date Data Source [id number] 03/08/2021 09:20:00 AM [facility] PLEASE FAX [phone], ATTENTION [place] Name Value Range Interpretation Code Description Data Elissa rce(s) Supporting Document(s) PT 9.1-10.8 Normal (applies to non-numeric results) [facility] INR Normal (applies to non-numeric results) [facility] The use of INR is restricted to patients on stable oral anticoagulant. Therapeutic Range: 2.0 - 3.0 High Risk Range: 2.5 - 3.5 ID Date Data Source [id number] 03/08/2021 09:12:00 AM [facility] PLEASE FAX [phone], ATTENTION [place]ST [place] Name Value Range Interpretation Code Description Data Elissa rce(s) Supporting Document(s) Sodium 139 mmol/L 136-145 Normal (applies to non-numeric resul ts) [facility] Potassium 3.5-5.1 Normal (applies to non-numeric resul ts) [facility] Chloride 104 mmol/L 98-107 Normal (applies to non-numeric resul ts) [facility] Carbon Dioxide CO2 21-32 Normal (applies to non-numer ic results) [facility] Anion Gap 5.0-16.0 Normal (applies to non-numeric resul ts) [facility] BUN 13 mg/dL 7-18 Normal (applies to non-numeric results) [facility] Creatinine,Serum 0.7-1.2 Normal (applies to non-numeric results) [facility] GFR >60 Normal (applies to non-numeric results) [facility] Glucose Level 95 mg/dL 60-99 Normal (applies to non-numeric re sults) [facility] Reference range is only applicable when patient is fasting Note the following drug interference: Sulfasalazine Sulfapyridine Can see falsely depressed Can see falsely elevated result with up to 17% results with up to 11% decrease in measurement increase in measurement Recommend patients be collected for this test prior to administration of either drug. Calcium 8.5-10.1 Normal (applies to non-numeric resul ts) [facility] Bilirubin,Total 0.1-1.9 Normal (applies to non-numeric results) [facility] SGOT(AST) 11 U/L 15-37 Below low normal [facility] patrick Note the following drug interference: Sulfasalazine Sulfapyridine Can see falsely depressed Can see falsely elevated result with up to 10% results with up to 10% decrease in measurement increase in measurement Recommend patients be collected for this test prior to administration of either drug. SGPT(ALT) 18 U/L 12-78 Normal (applies to non-numeric resul ts) [facility] Note the following drug interference: Sulfasalazine Sulfapyridine Can see falsely depressed Can see falsely elevated result with up to 29% results with up to 10% decrease in measurement increase in measurement Recommend patients be collected for this test prior to administration of either drug. Alkaline Phosphatase 47 U/L 38-126 Normal (applies to non-num jorge results) [facility] can increase Alkaline Phosp le vels up to 2 times the normal adult value. Normal values for children and adolescents are 2 to 3 times the normal adult value. Total Protein 6.0-8.2 Normal (applies to non-numeric re sults) [facility] Albumin Level 3.4-5.0 Normal (applies to non-numeric re sults) [facility] ID Date Data Source [id number] 03/08/2021 08:48:00 AM EDT [facility] PLEASE FAX [phone], ATTENTION [place]ST [place] Name Value Range Interpretation Code Description Data Elissa rce(s) Supporting Document(s) White Blood Count 3.5-10.5 Normal (applies to non-numeri c results) [facility] Red Blood Count 3.90-5.00 Below low normal [facility] Hemoglobin 12.0-15.5 Normal (applies to non-numeric resul ts) [facility] Hematocrit 34.9-44.5 Normal (applies to non-numeric resul ts) [facility] Mean Corpuscular Volume 81.2-95.1 Above high normal [facility] Mean Corpuscular Hgb 25.6-32.2 Above high normal [facility] Mean Corpuscular Hgb Conc 32.0-36.0 Normal (applies to no n-numeric results) [facility] Red Cell Distribution Width 11.9-15.5 Normal (appli es to non-numeric results) [facility] Platelet Count 257 x10 3/uL 150-450 Normal (applies to non-numeric results) [facility] Mean Platelet Volume 9.4-12.4 Normal (applies to non-num jorge results) [facility] Neutrophils% (Auto) 31.0-71.0 Normal (applies to non-nume ezequiel results) [facility] Lymphocytes% (Auto) 20.0-55.0 Normal (applies to non-nume ezequiel results) [facility] Monocytes% (Auto) 4.0-12.0 Normal (applies to non-numeri c results) [facility] Eosinophils% (Auto) 1.0-8.0 Normal (applies to non-nume ezequiel results) [facility] Basophils% (Auto) 0.0-2.0 Normal (applies to non-numeri c results) [facility] Immature Granulocytes% (Auto) 0.0-2.0 Normal (elly lies to non-numeric results) [facility] Neutrophils# (Auto) 1.50-6.20 Normal (applies to non-nume ezequiel results) [facility] Lymphocytes# (Auto) 1.20-4.00 Normal (applies to non-nume ezequiel results) [facility] Monocytes# (Auto) 0.00-0.90 Normal (applies to non-numeri c results) [facility] Eosinophils# (Auto) 0.00-0.50 Normal (applies to non-nume ezequiel results) [facility] Basophils# (Auto) 0.00-0.20 Normal (applies to non-numeri c results) [facility] Immature Granulocytes# (Auto) 0.00-7.00 No rmal (applies to non-numeric results) [facility] ID Date Data Source [id number] 02/17/2021 11:01:00 AM EDT [facility] Name Value Range Interpretation Code Description Data Elissa rce(s) Supporting Document(s) Respiratory specimen severe acute respir atory syndrome coronavirus 2 (SARS-CoV-2) RNA Negative (qualifier value) [facility] This lab was ordered by [facility] anitra and reported by . ID Date Data Source [id number] 02/17/2021 11:28:00 AM EDT [facility] First test? UNKNOWNEmployed in [facility] re? UNKNOWNSymptomatic per CDC? UNKNOWNHospitalized? UNKNOWNICU? UNKNOWNResident in congregated care? ex senior living, [facility] UNKNOWN? UNKNOWN Name Value Range Interpretation Code Description Data Elissa rce(s) Supporting Document(s) SARS-CoV-2 RNA Negative Normal (applies to non-numeric r esults) [facility] Negative results should be treated as pr esumptive and, if inconsistent with clinical signs and symptoms or necessary for patient management, should be tested with different authorized or cleared molecular tests. Negative results do not preclude SARS-CoV-2 infection and should not be used as the sole basis for patient management decisions. Negative results should be considered in the context of a patient???s recent exposures, history and the presence of clinical signs and symptoms consistent with COVID-19. This test has not been FDA cleared or approved; this test has been authorized by FDA under an Emergency Use Authorization for use by laboratories certified under the Clinical Laboratory Improvement Amendments of 1988 (CLIA), 42 U.S.C. ???263a, to perform moderate complexity/high complexity tests and at the Point of Care (POC), i.e., in patient care settings operating under a CLIA Certificate of Waiver, Certificate of Compliance, or Certificate of Accreditation. Factsheets for healthcare providers: https://www.fda.gov/media/111063/download Factsheets for patients: https://www.fda.gov/media/281100/download The ID NOW Instrument is a rapid molecular in vitro diagnostic test utilizing an isothermal nucleic acid amplification technology intended for the qualitative detection of nucleic acid from the SARS-CoV-2 viral RNA. THIS IS A STATE REPORTABLE COMMUNICABLE DISEASE. Manual entry verified by Maurisio Castaneda 02/17/21 1128 ID Date Data Source [id number] 01/20/2021 02:25:00 PM EDT [facility] Name Value Range Interpretation Code Description Data Elissa rce(s) Supporting Document(s) Respiratory specimen severe acute respir atory syndrome coronavirus 2 (SARS-CoV-2) RNA Negative (qualifier value) [facility] This lab was ordered by [facility] and reported by . ID Date Data Source [id number] 01/21/2021 11:44:00 AM EDT [facility] First test? UNKNOWNEmployed in [facility] re? UNKNOWNSymptomatic per CDC? UNKNOWNHospitalized? UNKNOWNICU? UNKNOWNResident in congregated care? ex senior living, [facility] UNKNOWN Name Value Range Interpretation Code Description Data Elissa rce(s) Supporting Document(s) SARS-CoV-2 RNA Negative Normal (applies to non-numeric r esults) [facility] Negative results should be treated as pr esumptive and, if inconsistent with clinical signs and symptoms or necessary for patient management, should be tested with different authorized or cleared molecular tests. Negative results do not preclude SARS-CoV-2 infection and should not be used as the sole basis for patient management decisions. Negative results should be considered in the context of a patient???s recent exposures, history and the presence of clinical signs and symptoms consistent with COVID-19. This test has not been FDA cleared or approved; this test has been authorized by FDA under an Emergency Use Authorization for use by laboratories certified under the Clinical Laboratory Improvement Amendments of 1988 (CLIA), 42 U.S.C. ???263a, to perform moderate complexity/high complexity tests and at the Point of Care (POC), i.e., in patient care settings operating under a CLIA Certificate of Waiver, Certificate of Compliance, or Certificate of Accreditation. Factsheets for healthcare providers: https://www.fda.gov/media/867007/download Factsheets for patients: https://www.fda.gov/media/813192/download The ID NOW Instrument is a rapid molecular in vitro diagnostic test utilizing an isothermal nucleic acid amplification technology intended for the qualitative detection of nucleic acid from the SARS-CoV-2 viral RNA. THIS IS A STATE REPORTABLE COMMUNICABLE DISEASE. Manual entry verified by Mishel Moreira 01/20/21 1506 ID Date Data Source [id number] 12/11/2020 12:38:09 PM EDT [facility] Name Value Range Interpretation Code Description Data Elissa rce(s) Supporting Document(s) Progress Note [facility] WGNJSz3tSjSXIsZv07/NLGtdXMEww5CaEPraRBz2UIxjESQwH4YtBUW1hD6iQWQ9UVwUMjJbHpRwKnH5 [facility] [file] [id number]= ID Date Data Source [id number] 12/11/2020 12:38:[address] [facility] Name Value Range Interpretation Code Description Data Elissa rce(s) Supporting Document(s) Progress Note [facility] GRKGMn3jFkYUZjTz60/DHDbbBYTxy3ZvUFfdOHw9OHnyCYIhE7OlPHU9xG7pWPJ8JUcQVsQeXsIzKfF7 lbm CfOgjYGiHqGTQbWzsDUhImKFziQwvjbRErFB9WzNH8EQIgR76dMXOpCPHhB4UiNTW3LyV+Cg5OGPJjxH BcCV8CTdyL5PrzFhuBOw1+5a4Ghh0fHsBC3c/h8wx8MobXsUDMQoZm3gJ+GHswvgWbNYYs++jiJkq0vj KmUGNphb0XG5Mc1lx2znspshoFACJ/57J7IsvOQJa/ 129Ry6O/Amj0M6JspQWhi07hTDBOguYurEkBg4j2OHG/JtekByDMTm6pejUfwHYpsyoKdEkTce/5eJy/ YtoCz9eB+Prm+AgAjHN3xyxKX15DG/2Pazra88inORDYPhn39sobRhCvJVZ5Tn0UNqLcn2TDUKF3Rh4E IH4qvxbq4vZkDHPQTrMmMtxFAEaTFZdSsM/OWt6JnC Rf59YBDtmvnhWap9t7bEkBetdcHfqVpzVblK1UoaAp8lQtjt9aRJAN11MAdUBpXcWH4S2dDMIKUY6UbE icsPYopP0b1XxaOk9b+PK8vsZNc1kvR+DP3t7n4FDlkvtm+e/qPXNcTIEYDfhyjbmEgdy1D3tCFT87Pe /7fpjoGLnrxWlRyufi6mMmRPjCmoujYRAiXpnvemXp [file] z4ZhrqL3xlSlGEffXUF0UQ8WVHZFI9ODXr== ID Date Data Source [id number] 10/26/2020 06:31:[address] [facility] Name Value Range Interpretation Code Description Data Elissa rce(s) Supporting Document(s) Progress Note [facility] QKASAt4vFgYGMdUa00/AJYlgLRCfq3GoHVoxCHs0XHkwBNQlM9IwNUZ9tV4cDTB6LXwPFuKzHtPgGVJ2 lbm [file] ICAgICAgICAgICAgICAgICAgICAgICAgICAgICAgICAgICAgICAgICAgICAgICAgICAgICAgICAgICAg GURwJBFuFMGuDJHjOGFmZBLqAPOcWXUkBSYnWRUnAOApXP1UZWVoFNGpEFVkCCSmMZWcATBiSJNuFLTz ICAgICAgICAgICAgICAgICAgICAgICAgICAgICAgIC XdIBNpVBSvNLIdZJEsDJZtVOLuZSIzLFMwIGEdLYOwPXKfJKAhPETeJGUvNZ7QWYXcNPHmCJGcREQpQB AgICAgICAgICAgICAgICAgICAgICAgICAgICAgICAgICAgICAgICAgICAgICAgICAgICAgICAgICAgIC IoWCIpQSNuUCUaXMUaOFTkGVOjKQJsNBKgQV5IBZMc ICAgICAgICAgICAgICAgICAgICAgICAgICAgICAgICAgICAgICAgICAgICAgICAgICAgICAgICAgICAg ORRbAEJrKZPmFHXjDATtTMWiHLTzDHClWVOlHNShSKZtWKEbGS4XEUMqMWNhRMAxZLIbGAVxKAEvJXHl ICAgICAgICAgICAgICAgICAgICAgICAgICAgICAgIC FfAZGoTPJzXAXtVIGvKCXwYEKtVICiCZVsNEFpXNVcCDUbFMFfIAEzYVXsFGImGX4CNDPdEPLtYBNmJV AgICAgICAgICAgICAgICAgICAgICAgICAgICAgICAgICAgICAgICAgICAgICAgICAgICAgICAgICAgIC BeHNKuSYKrIJPoOCMpYUBdIPRsYXRxMPLrEUPoXU2P ICAgICAgICAgICAgICAgICAgICAgICAgICAgICAgICAgICAgICAgICAgICAgICAgICAgICAgICAgICAg OQEmZGOpNIIiZOOmZPAgIXFkRLVbYPTsKZUjWJYcGVIfOKZoLTGdAC1VYLTaESAaNHCjZTOjNQLzFIHe ICAgICAgICAgICAgICAgICAgICAgICAgICAgICAgIC UeRJPxIZCyHBGuNVDaPUJnQAUfURVrZAFxEOFiTROcUFMeAUApJBBwOXSeTNQsSUWaQM6FSUNqCCQvIG AgICAgICAgICAgICAgICAgICAgICAgICAgICAgICAgICAgICAgICAgICAgICAgICAgICAgICAgICAgIC AgICAgICAgICAgICAgICAgICAgICAgICAgICAgICAg FD8IMUIgSLUrKAHnUGCuXSQvYMZrPWYqQSPmAHBjQMRiORZmIQNrLUBvNFJlXCSlOHLaFKDxIAVpKXQx WZXtRXQxMEMfKTPtMXGvSQNaYGKxFVRmIEBmWPRcCGCbXVVkMHIeBDReWZ6MFJ37zVPvl8O4ZLDbJE1i dyc/Nv0RALvgkaIowVMgZQ6FLjDpUZ9dak1OCnAuDK 1mrv7CEGvCUtHlW1K2gNXoBLCkQOFYGqByW42gZTzgAp47PUnvCMHjEuPiNQo3Tw8FLcCvY4suCTWhVf R0SJLxPvCgARadMF6Zo1FcgVFuLNn+Oc2BDT9sb0RiXYytRxAiWH0hej7XKVeOPyGmH4IedxN8RZCdOW QkCm6JCEEfCWFtlKJkJaEuSGTBLrHiF7DnkI57AQUY Cj4+VSfnckSaNqkADhYaSSLjz6ShLIo2XO0HKZCoHNe4cZYgXXUfA6Qio4TgWd43PCGgGgiqEXSyiFDn LRYUYHY3WYsoFUOyNWWaDZ9fPZ8oOMZdXVS3BuK5BILXZQ5ZHTBaWNHifMEzCBEtOTKLER4LMIahGEA0 RJDysvVntHOaHVyhQM9XMYPeioSsSyRbDZOBTEq+Pg 0DLL3jz1TxAAizNNIzNG6mzf0MHTlCExAsI9M5vXGiK1V9AXbySw6WAGXrZOVgCjGxDAVYMXfmQK2VPI 0nvvZ8YZ8EaTWcBOWvDQYgmZUzKGp1U59atIXfZQmgKU2TQKJ+Karen+Co4YPMCfENQsOOChFgVaEDEGRc PyV6OwB8JWg9SbA4YcDU74oVpumvFxSJueCZ7OFR6i GGFcBZJCDF3WnXUdqR8pznHxVtJnCODDVlYoL27qwQYfWNGqFWReAVEzLu5PJBBqX2JhiwGejGnsiuBy UEMtHGXRXN6DAEwmfkAfcPOqwJnhDI59fMexPT5QZr2KLhPwZG7mri2EzTEkHf9ORUZcOH9ILYQjNLCv JWQqYHC6CRMiQfYlSSjcUHEcLVWeSVB1KEYkCBRoGT 2FJsToWAQqFNlhRCpjWSFrYPFkxg2GCLCgNCWqYNs0PYMeGDYzLKIaREsyTCYkDETfJRH2PSOxJOIvVX 4KShKdZAViOZF3YDlkJUIaPUDcqc0CLNAuAOXpRlD7RYCbTPUhRTYjLHnyBJUhWNQuTtQbOMEzYOLuZW 0GNtKwIVQdOKA0EGSnLMKaFSQpoh7POHQtGKPkWWNp HtWnASAcGZLkELwtTHPcOQP3DSe9ZKDcQBHgYS3HCmWxWPIiECAgBWHbMHVnBWJkso0EXTZnVXKnFUW7 FbTbXGUtGXKbLNadGIDuRCB2CitsYHOkJUTsED1VCsMnWFTiURreMCIfNYQsSWVgzo9PBMHbDGFsPtNz OoDxAOTeWSOkDJgvFLFgSRR2HILvQIPjEAIbVH0MKs IcSEBcUOa6FFriUFNfIZKpyo0FLGIoLTHaNJZ4NaDxKQErKELeWQehUQWzWSY9YHF6KAAtIRFtMV3MKs QpNFKjKRq1ARPgMKEgTCVcfq3UTXVqOTApTMTcWINvYTNpJVUqXJggIJPrCDRaJGG9SIGiTEQjNN0VPs SdCIGsAqS1SyQcJXPvMTSaeh2UTPSkVSWxPFN0PLAd QORzOIHwFYg2tqNswKKaVBh2CZ5XT0PremQcYnCWUd8Pw460GNI9CAJmGp9QM7njGt0rIOCwWGVFQb6H HVc6CPhxVLBvIYJ8PsD3MfnwBDL7Q2NvGvMqVJPoGMfgIYY+XVi1TKR0HsA4OxDvUbbjLBT8YSZ8OAU7 IwHcVQHfDAReTK1mMLTWWc5+QDhczNPuxRvmKCRKHgTtBzIzEUyxHWLRXh5M ID Date Data Source [id number] 10/27/2020 12:33:00 PM EDT [facility] Procedure Performed By: [facility] [address] [place] [address] Director: Monica Hurley MD Mixed mansoor: Mixed mansoor, probable contamination. Name Value Range Interpretation Code Description Data [facility] rce(s) Supporting Document(s) ID Date Data Source [id number] 10/26/2020 12:03:00 PM EDT [facility] Name Value Range Interpretation Code Description Data [facility] rce(s) Supporting Document(s) Color,Urine Colorl-Dk Y Normal (applies to non-numeric res ults) [facility] Clarity,Urine Clear Normal (applies to non-numeric re sults) [facility] Specific [place],Urine 1.005-1.030 Normal (applies to non- numeric results) [facility] pH,Urine 5.0-8.0 Normal (applies to non-numeric resul ts) [facility] Protein,Urine Negative Normal (applies to non-numeric re sults) [facility] Glucose,Urine Negative Normal (applies to non-numeric re sults) [facility] Ketones,Urine Negative Normal (applies to non-numeric re sults) [facility] Blood,Urine Negative [facility] Bilirubin,Urine Negative Normal (applies to non-numeric results) [facility] Urobilinogen,Urine 0.2-1.0 Normal (applies to non-numer ic results) [facility] Leukocyte Esterase,Urine Negative Normal (applies to non -numeric results) [facility] Nitrite,Urine Negative Normal (applies to non-numeric re sults) [facility] RBC,Urine None Seen [facility] WBC,Urine None Seen [facility] Casts,Urine None Seen Normal (applies to non-numeric resu lts) [facility] Squamous Cells,Urine None Seen [facility] Amorphous Sediment,Urine None Seen [facility] Bacteria,Urine None Seen [facility] ital Mucus,Urine None Seen [facility] l ID Date Data Source [id number] 10/27/2020 12:15:00 PM EDT [facility] Procedure Performed By: [facility] [address] [place] [address] Director: Monica Hurley MD Name Value Range Interpretation Code Description Data Elissa rce(s) Supporting Document(s) Urine Culture Normal (applies to non-numeric re sults) [facility] ID Date Data Source [id number] 09/21/2020 03:33:02 PM EDT [facility] Name Value Range Interpretation Code Description Data Elissa rce(s) Supporting Document(s) Progress Note [facility] SEZDBy6xWpKRDdPi66/DSCkwAZFck9MaEFngLSz9MBtfWZPiM3JhNWH0iZ1vZBC2PMyKMvWgLfIuFWA5 lbm [file] AgICAgICAgICAgICAgICAgICAgICAgICAgICAgICAgICAgICAgICAgICAgICAgICAgICAgICAgICAgIC AgICAgICAgICAgICAgICAgICAgICAgICAgICAgICAg OQ6ICQLyQQAxOLOtGJFbBVHiNJHfNZDiOWRaQGVkVQLcOUAxIIEqFAHkQMSrAIUmDRKzAYIeJWWzIJWc BWMxOYOvEUSuLDAuHBTyWRYiFHQxALIlPGUkBRWzNVRqVHMsBZMgUGWeVS4CXITnYHWbXQStFJSgKVMy ICAgICAgICAgICAgICAgICAgICAgICAgICAgICAgIC RrQFOeKHFfSRLpIKMrTOQgODZyDZZwWBLpAXShSVEvTDSePPKeOVRdHRIdTUKjBDIeUISqOA0RNYZaNG AgICAgICAgICAgICAgICAgICAgICAgICAgICAgICAgICAgICAgICAgICAgICAgICAgICAgICAgICAgIC AgICAgICAgICAgICAgICAgICAgICAgICAgICAgICAg KQNbUQ9ZZUAvBYVhNGOcUZCqGXKsFCRhWNWtSZKtYPGfMZLxUURiDMPdBDDrZQCfKXUqUVYtUWYjNWPa DSLuNXCoNQMzOTRrIDGgVCEsRTZqCCSzGAWlOTItFPJsLVBqZMSyQWCcEWYrBY0GBKCtLIYwTDTqRNCg ICAgICAgICAgICAgICAgICAgICAgICAgICAgICAgIC XrXQMbFDEbLNLbYZNaHXDqVGQtEYYaIPSlETPsSBKcCAYrOLPzCAIzSFRvNZTgAEZaVOQsRCXmLO3XTX AgICAgICAgICAgICAgICAgICAgICAgICAgICAgICAgICAgICAgICAgICAgICAgICAgICAgICAgICAgIC AgICAgICAgICAgICAgICAgICAgICAgICAgICAgICAg CRBvSJJcYO9JELKlYIAnNNKzEAQoGSZrPHKaUCZjWRVmOEDoPKZcCJRpOKUeJNZlMDTyNETtBKLeQOKj TCLhXTHsUWQpRQCwPKAbTJSxRHZkERSiZPMmLRSjNOQoZWJtYAXpKLSfCYUdZWXeHQ0EYDSuEKFjFMYc ICAgICAgICAgICAgICAgICAgICAgICAgICAgICAgIC AgICAgICAgICAgICAgICAgICAgICAgICAgICAgICAgICAgICAgICAgICAgICAgICAgICAgICAgICAgIA 0KICAgICAgICAgICAgICAgICAgICAgICAgICAgICAgICAgICAgICAgICAgICAgICAgICAgICAgICAgIC AgICAgICAgICAgICAgICAgICAgICAgICAgICAgICAg HFHuYFWsGUVpZE7HKO90iEZaq3Z7WQOhUQ9yeka/Si8BZVglhcKttBZpRN1QHeDuVO0mqv2RGgMiDK9c sp2VLXuYCzXfE2R8uIFmVAMfBJJGBpBmM50nKGcdDz26SHvjXNWsZmQjICp7Fl4SJuJnG7biFAMiWlQ3 IOKnGcFdXUerOX4Ex9JmtSLnZUi+Ui4YSQ0gu6HeUZ mrClZbGW6lmd4XJDmZObIaV8ImojO3DKOaNKMdZj3DJYZcRGTibQXvImJwXQMOLoHvV4RbyA81QCJTAq 4+DXnxkmHdLlsDUbPpAAXet4WdNWt0GE2XVWAvTLw7pIUkFHPcA4Wlp5LyHu84ITGbHeoaZXAdoKTeWZ SKBMK8HYyeMLRlKCLtMR9vQR2iZFEaLOBwZoHxLSBS BU6GUJQkTZRsvJKuKEYzXGUHXB0HAAojBNB2VPYaagVxrBLqUCeaHB8HJQMrycHjSyDfHLNUFPo+Pg0K QJ4mn0OpJOfpMAPjPU9nsb3PJOtJYiYlA3A2wMZfL1M3XExpYd1NTJHxZPFkBpEjYOKLNDhcUM3PBE6j pmF0WY1FtBDvKMIaMKBzmSGgMOy7H27orEOkYEdtBS 0KICA+Karen+No0SCVNmSGNdBXZdCuPfOFPFGjHiP0QxU1WFn5KnS6PaCW71mIoaxcEyWGejSW5UDZ0qSO WjMZEEOD3LzIVgoX4fjbKnQkTxJIKBWeNcZ77igYRzABUzPJQlBUSjBm8HHZCiM1NoanSnzYrzgzNeGQ LiEWOJSS8RMUbupeVxsGCehYcfCY47rMagYI9FRf9I JeYxTZ0hdb7DxNQgUe3FRHHrRF9EFDBqBCUbGCMjIOT4KRGcWlFvPChfSVIhLAKzQHT2TXIvFQNfKX4B LtZxSEMnSPe0LjEeNWRvASHegc2PELNdMTZtYOF3REHoMFDxWOGiJJnoVHMvDYWsOZG3BIUwJDRsGI1I YlNrAKGyWSFwOCIpAHIqASXcdo6HIOJaUTXnGqF1LZ JpTNAuQCPjUDhhPAFqLEZsSmY4MLEhAHGwHA9HZrLzQYHaVTL3SIRuVZSbCXFgeq3KVSRiMGZoOrCdKW YkLKSwDKUjRNceJPYrBMS8VDh4KDScXUMsYW6CPzKeUXByYAB3CSDmOKDcYVHihj8HYUPaOONeOHd5Rf ZbZNMgCEQzWMkoVXFvION3Uxe9MZAzQIFiVB0DEkDm VRQdKTL1EOaeVGAaHDAvhk8QITMbJIZgFvdhIuCzQYIdNTHxUMuuDMTjPTI3ELX2SSDgZNZzYS0RKvWw WNKrTCbvZCUgEZDjHUTvcg2PBZMpLNSsPBJ5PbMnMRYdKKPyXFnoDTGlKRC7PAL9SEJdAVYsWI9AHpHe LODcYHm6VNwfTXNeEYCvct1PSZDbUWWePSXvTWZxYK DoBLXeQOknFGXtAXLyUEIzPRNwFQVlHY0POtGqFCCtJcD4HrArKYTaREXfug7ENJKlPJHcLVY9BhKpVM WdEAZmOXd6rcAsqVXdVXw5AT0XI6CqztIdXuRQBn9Yh952WUG2PFHuYk6SA4nuMn1qJSYhUXFSBf3INU q9ZKHkDiKnNqj4PhUyWWBfRsY9PUIcNdG1EjmeZxnw NzU+QAn1KTWgTZIhJIVnDGE6WBDsDmRsVTPoHHDnXKQfHTH6QZ2qGGEOTv3+DQpzdGFydHhyZWYNCjIw UKY1PItsOZUYDj7Q ID Date Data Source [id number] 09/17/2020 12:17:[address] [facility] Name Value Range Interpretation Code Description Data Elissa rce(s) Supporting Document(s) Progress Note [facility] QKXOQw8vKwOLGbYg89/JWApyOBQzt9QbVHpeYCc9YYjiLYKaE6ImERM3zK3xEEX0JFpYJqIsWpAoADH7 lbm [file] Q2FFh7P2RrFoEgEDUhYK1oOWJXSl9+UUlyqUIckScdXOOHEwXgBhf2EGqeEFZSKf9O ID Date Data Source [id number] 09/17/2020 08:26:00 AM EDT [facility] [address] [place], [place] [address]FDLO[place]E NAME: BRENDA LEVINTE OF : 1975REPORT: OPERATIONPATIENT NUMBER: [id number] STATUS: SDMEDICAL RECORD NUMBER: [id number] OF ADMISSION: 09/16/2020ATE OF DISCHARGE:ROOM: 01DATE OF PROCEDURE:PREOPERATIVE DIAGNOSES:1. Dyspareunia.2. Chronic pelvic pain.3. Chronic endometritis.POSTOPERATIVE DIAGNOSES:1. SameOPERATIVE PROCEDURES:1. Vaginal hysterectomy.2. Uterosacral colpopexy.3. Cystoscopy.SURGEON: Artur Brooke MDASSISTANTS: Soco Das MD and Bessy Vázquez D.O.ANESTHESIA: General.ESTIMATED BLOOD LOSS: 300 mL.FLUIDS: 1700 mL of crystalloid.URINE OUTPUT: 600 mL.LOCAL ANESTHETIC: 10 mL 1 percent lidocaine with 1:200,000 epinephrine.KEE: Yes.VAGINAL PACKING: None.COMPLICATIONS: None.INDICATIONS: Ms. Levin is a 45-year-old white female with dyspareunia,chronic pelvic pain, and chronic endometritis. Diagnosis, treatmentoptions, advantage and disadvantage of each were explained. She felt thather condition is severe enough to warrant surgical correction. Theproposed procedure, possible complications, failure rate, permanent loss ofreproductive function, and the elective nature of the procedure wereexplained.INTRAOPERATIVE FINDINGS:1. Her cervix and fundus were very well supported. 2. The cervix was elongated to approximately 5 cm. 3. A large and friable cervix was present and was slightly below the anterior and posterior vaginal mucosa.4. Both ovaries were normal.PROCEDURE: Under satisfactory general anesthesia, the patient was placedin candy-cane stirrups. Her knees and hips were checked for overflexion.Her hips were also checked for overabduction. Both her knees and hips were placed in a 90-degree angle. Examination under anesthesia was performed. Findings were described above.Her perineum and vagina were prepped and draped in the usual sterile manner. A [employer] retractor was placed for exposure. The anterior and the posterior lip of the cervix was grasped with an Allis clamp. The anterior vaginal mucosa and underlying bladder was incised just above the external cervical os using a scalpel and carefully dissected away from the cervix and the lower uterine segment using Metzenbaum scissors. The posterior vaginal mucosa was next incised just above the external os using a scalpel and dissected away from the cervix and the lower uterine segment using Metzenbaum scissors and pickup. An extensive amount of dissection was needed because of adhesions form previous surgery.Both the anterior and the posterior cul-de-sacs were high in the pelvis. The hysterectomy was began in an extraperitoneal fashion. The uterosacral ligament each side was clamped with a Zen clamp, cut with Solano scissors, and suture ligated using 0 Vicryl. The lower portion of the cardinal ligament was clamped with Zen, cut with Solano scissors, and suture ligated using 2-0 Vicryl in sequence. The posterior cul- de-sac was next entered using Solano scissors and pickup. A weighted speculum was placed into the posterior cul-de- sac for exposure. The bladder and the anterior vaginal mucosa was further dissected away from lower uterine segment and the cervix. The anterior cul-de- sac was next entered using Metzenbaum scissors and pickup. A right- angle retractor was placed into the anterior cul-de-sac to elevate the bladder off the operating field. The remaining portion of the cardinal ligament were clamped with Zen, cut with Solano scissors, and suture ligated using 2-0 Vicryl. The uterine vessel on each side was next clamped with hemostat, cut with Metzenbaum scissors, and suture ligated using 3-0 Vicryl. Examination revealed that the cervix was elongated and the fundus was very well supported and high in the pelvis. The cervix was next amputated. The fundus was next bisected in the midline. The left adnexal pedicle, which consisted of the ovarian ligament, the round ligament, and the fallopian tube were clamped near the cornual area of the uterus. The left half of the fundus was excised and sent to pathology. The adnexal pedicle was suture ligated x2 using 0 Vicryl. The right adnexal pedicle, which consisted of the fallopian tube, round ligament, and the fallopian tube were clamped near the cornual area of the uterus. The fundus was excised and sent to pathology. The right adnexal pedicle was suture ligated x2 using 0 Vicryl. Inspection revealed that there was bleeding from the right ovary, which was was suture ligated using 3- 0 Vicryl. The entire area was then inspected, no bleeder was noted.A uterosacral colpopexy was next performed. With traction on the posteriorvaginal cuff, remnants of the uterosacral ligament were identifiedposterior medial to the ischial spine on each side. Each remnant wasgrasped with a curved Allis. Two suspension suture of 0-Vicryl were placedthrough each area and held. The placement of sutures were confirmed bysimultaneous rectal examination and traction on all four sutures. Norectal injury or stitch penetration was detected. The bladder was nextemptied using a metal catheter. A cystourethroscopy was performed with70- degree cystoscope. No bladder or urethral injury was detected. Urinewas noted to efflux freely from both ureteral orifices when traction wasapplied to all four sutures. The bladder was next emptied using a metalcatheter.Underlying tis david was next dissected away from the proximal edge of theposterior vaginal mucosa until the rectovaginal fascia was identified alongits entire edge. The proximal edge of the rectovaginal fascia was nextstitched to the proximal edge of the posterior vaginal mucosa usinginterrupted sutures of 3-0 Vicryl. The suspension suture were thenindividually brought through the full thickness of the posterior vaginanear its proximal edge and held.The anterior vaginal mucosa was next dissected away from underlying tissueuntil the pubocervical fascia was identified along its entire edge. Theproximal edge of the pubocervical fascia was next sutured to the proximaledge of the rectovaginal fascia using interrupted suture of 3-0 Vicryl.A time-out was taken. After the needle, blade, sponge, instrument countswere reported as correct, the vaginal vault was closed by suturing theproximal edge of the pubocervical fascia and the anterior vaginal mucosa to the proximal edge of the rectovaginal fascia and the posterior vaginal mucosa using a running suture of 0 Vicryl from both edges and tied in the midline. The suspension suture were individually tied bringing the vaginal apex in the posterior pelvis. A pelvic examination revealed a slightly loose two- finger vaginal opening and canal with the apex in the posterior pelvis and the anterior and posterior vagina in the anatomic position, which was the objective for the surgery. A rectal examination did not reveal any injury or stitch penetration. The procedure was terminated at this point. Patient was awoken from the anesthesia and taken to recovery in good condition. Estimated blood loss was approximately 300 mL. Needle, blade, and sponge count were reported as correct x2 at the end of procedure.DICTATED BY: Artur Brooke, MDDictated: 09/16/2020 18:19DT: 09/16/2020 18:27Job #: [id number]: [facility] computer generated reports are not confirmed orauthenticated unless they are signed by the providerElectronically Authenticated and Edited by:ARTUR BROOKE MD On 09/17/2020 08:26 AM EDT Name Value Range Interpretation Code Description Data Elissa rce(s) Supporting Document(s) ID Date Data Source [id number] 09/16/2020 01:00:09 PM EDT [facility] SPEC EXP DATE 09/19/2020ATI ENT ABO/Rh A POSITIVEANTIBODY SCREEN NEGATIVETESTING SITE PERFORMED AT [address] [facility] [address] Name Value Range Interpretation Code Description Data Elissa rce(s) Supporting Document(s) TYPE AND SCREEN [facility] ANTIBODY SCREEN NEGATIVE ID Date Data Source [id number] 09/16/2020 11:54:08 AM EDT [facility] Name Value Range Interpretation Code Description Data Elissa rce(s) Supporting Document(s) HEMOGLOBIN A1C @ 5.2 % (4.0-6.0) [facility] Performed using Siemens Idabel immunoassa y.Care must be taken when interpreting NyP2fhtcuyml in patients with a hemoglobin variantor decreased erythrocyte lifespan. Values 5.7 - 6.4% suggest prediabetes.Values >=6.5% are diagnostic for diabetes.REFERENCE: DIABETES CARE 2018: 41(S13-S27).[facility] [facility] [address] EST [place] GLUCOSE 103 mg/dL [facility] ID Date Data Source [id number] 09/16/2020 11:07:41 AM EDT [facility] Name Value Range Interpretation Code Description Data Elissa rce(s) Supporting Document(s) POC GLUCOSE 82 mg/dL (70-99) [facility] PERFORMED BY CLINICAL STAFF ID Date Data Source [id number] 09/18/2020 05:26:49 PM EDT [place], [place] [address]Tel# SURGICAL PATHOLOGY REPORTPatient Name:LORI LEVIN:1975Received:09/17/2020ccession #:[id number](s) Received: A: Uterus and cervixClinical Diagnosis and History: Pelvic pain, dyspareunia. DIAGNOSIS:UTERUS AND CERVIX (UTERINE WEIGHT, MORCELLATED 78 GM). CERVIX: NABOTHIAN CYSTS. ENDOMETRIUM: SECRETORY PHASE ENDOMETRIUM. MYOMETRIUM: ADENOMYOSIS. SEROSA: ENDOMETRIOSIS AND FIBROUS ADHESIONS. GROSS DESCRIPTION: Specimen received in formalin labeled "uterus and cervix" are fivefragments of apparent uterus which weigh 78 grams in aggregate. They varyfrom 3.5 to 7.5 cm in greatest dimension. The smaller two fragmentsappear to have attached portions of ectocervical tissue. No definitiveendocervical canal is identified. Portions of endometrium are presentover the larger two fragments which measure 1.7 and 1.0 cm in greatestdimension. The myometrium measures up to 2.5 cm in thickness and is firmand yu-pink and contains no focal lesions. The serosa appearsextensively covered by hemorrhagic fibrous adhesions. Sections aresubmitted for microscopic examination as follows: sections of the possiblecervical tissue cassettes 1-2; sections from endomyometrial tissue toinclude serosa cassettes 3-6. (6 blocks) jglmls/rceReported: 09/18/2020Electronically Signed Out By Estephania Hinds M.D. jmdPathology Associates of Lake CityLilliana[address] [place] [address]Iindlyaxz component performed at [facility], Histopathology, [address] [place] [address], [address].Reported at [facility], [address] [place] [address], [address].This report may include immunohistochemical or in-situ hybridizationresults. Testing was developed and the performance characteristicsdetermined by [facility], as required byCLIA '88. The FDA has determined that approval for specific use is notnecessary for clinical use. The quality of Hematoxylin and Eosin stainsand as applicable, for all immunohistochemical and/or special stains,including positive and negative controls, were reviewed and consideredappropriate.ICD codes: N80.0 N80.9CPT4 codes: A: 92621R Name Value Range Interpretation Code Description Data Elissa rce(s) Supporting Document(s) ID Date Data Source [id number] 09/15/2020 07:45:38 AM EDT [facility] Name Value Range Interpretation Code Description Data Elissa rce(s) Supporting Document(s) Progress Note [facility] ESFVSt4rEkLPEsKz03/HVGlnYQPpb4TsUNlvRIr1DRqrDFEmO4AeIMY7mZ2qVAV5BCaPGyRwSfMmPUUi lbm [file] ICAgICAgICAgICAgICAgICAgICAgICAgICAgICAgIC HiQDWrKLCaSHPlQSHvZOAxGH9UVUFbUYVlWFSxVLSlWNUvKAAuAWZdBMQrWAXkHXLpYBWvZFUdZCTsEO AgICAgICAgICAgICAgICAgICAgICAgICAgICAgICAgICAgICAgICAgICAgICAgICAgICAgICAgICAgIA 0KICAgICAgICAgICAgICAgICAgICAgICAgICAgICAg ICAgICAgICAgICAgICAgICAgICAgICAgICAgICAgICAgICAgICAgICAgICAgICAgICAgICAgICAgICAg IPWeCNBkDKGmRV4NOSNvATQjFBJtZSJiYADzBIRrSHLcMCMwZNIoOZGiTEKbWFRkNBBiPWRkWSBrRQOy ICAgICAgICAgICAgICAgICAgICAgICAgICAgICAgIC HbCXUnCCZoRVZvCVNpGBCxAIKwCK8UYGZhKHOvAUNmGUYhNPOfPFSiXADmQAFhJZLpJREeUZTvEPZuJB AgICAgICAgICAgICAgICAgICAgICAgICAgICAgICAgICAgICAgICAgICAgICAgICAgICAgICAgICAgIC YpQX0BFRTqMHZfLIJmBLAaRCHxXNAzSQIlHGYxILIw ICAgICAgICAgICAgICAgICAgICAgICAgICAgICAgICAgICAgICAgICAgICAgICAgICAgICAgICAgICAg GNXpQVQnYZYoOQHmKT1QGWBnRCPpBAYpAVDaIHPkRGVnANYpFEUyHMMlTDXbQCCsBGHzMBHeTFFnNIBi ICAgICAgICAgICAgICAgICAgICAgICAgICAgICAgIC UbUFIyKDIrBFBpFUVqRSRgGLFlAFNyWU7SYMHsMQPySOFcKIUnQPIkXLXdOYBwLLFoVQNaNBMbFXNeGH AgICAgICAgICAgICAgICAgICAgICAgICAgICAgICAgICAgICAgICAgICAgICAgICAgICAgICAgICAgIC GhBNQoQE0FBHXnSBJoDWIgLQTmIJWsRFDcEMJtDGEp ICAgICAgICAgICAgICAgICAgICAgICAgICAgICAgICAgICAgICAgICAgICAgICAgICAgICAgICAgICAg KFIdPMSpUODsBPTwLQPySV2GODXhQKNwJRVaVTDcCKAuRRCrNZAfPKGtVULxRKKvSEJkUAQzIUYtELCx ICAgICAgICAgICAgICAgICAgICAgICAgICAgICAgIC NxGPMpDSWsFNTzVGHlLUJlISPcAQIzANIkXI6CIH33aJIkx7A3EXAeYF1xqoc/Wd4GSQhocmYsqTZxHL 8RMiJhRU9eky8DCrFgEG5bwh1VZAsZKrLiL3P9wSVnGOGkCZUSEnLjK27mETggXg57BNviDRFxUuWrBE s5Nz8VXiLxQ8kzIVEhRqY8DAVlBvS6DICzCfGyGCso XG9Wg5IgpRDwOJd+Lg6GNR5mk1XlQTdrFSXeGV2tyo9KGSvKYjEjA6XqmaV2RXDcTTXeIu4YEUXnLKNo dDTfSlIlZEWWAyFjC4GvpL53WYJLOx9+WXzkocOsXvzZXbRsIZGys0DjTSu9BO0NMAGrSBe2kKMwUKLv T5Dki5VvXr95CVEaVfkaGULdsSGbPRXQWBC9RCjuCG JzUGMtLc1pFX4qTQQrZXF4WnYuPCCZHZ1ODXDoQSTnyJRnBLOoOPKAGH9JULhtWLE3BFXjcfKyuUXxZC goUN2DGEReyzOuZgJhXXNDJQx+Tp8JFG8jv1KnDDscCzVfGB8lhx6JHUmVOdXsC5B2iQIxG3X0ZAnwHe 9HMWElGGNfUDraAQFYOFxbYN6YIU3mjyX1QR9YhQBu DWGuXKVmbPNwPMu5G18kkPCiZChtWQ7EWEF+Karen+Vq8KAMSxFHUiYWMgFkOvQKUYVvPyG5ZuA4OUf5Kn H8CqBH12lTvfdkQrRZrpPZ6CQE9bDXKjCCDNTQ4VoWQrfS0bnjPgUVVqWSFQCyTnN68oeCPpFNRuASNm KCLbCu1OJELhM3ZiywCtrSucmzRyZFIyWUQJSL4IXU yoerTgrSChuItfFP43xUjdSZ9PQw7RRnDsJD6twz5NmFKvJw1BIAVvPF7EUGLzJKMbIIRsNIU3FXTpOr YlPAlzZVVgEGCcVNC8HNZmVZGoTH4CSdMcJKEqHyIvRcctTKMdYVLfqm4UKABlBKPwVrm8WnJqIZEzOC ZsZBvbUECfRGQkDIU8LKWbACRgQS8ZPaIpZKFiUBKg FaGcBYGfXDGaez6XJCGkPSJhHmP2RGFxGEDhTBFmERntKATpWIZ4AYJ0DCDxHTElUQ1YVxGlJWRdGROp VbFnYCFpKYLzoc0AVLKuZIDeWvZ3ZCIrTQTuOAWiHXnrYUVbZBD5YHw9ZGWwOCQyPX2BLmLyQRTgCId9 LaHmCJPxGSFmvk3WUHHmZXWdFYSnASMuXDGlZUKiGT fjHCJtUMN6ADH6MPEmMGVgSP7UPhOuHGCbTDkzVZWlLQPtLTQfwn9BDJGxRBEgNRq6QfJwUUUgWRInVV jiMVJgRPZfKal7QPPyVOGbQH6DDyXcGRUgTwF8PCSqYNEhPXPsqa6XBOMfRLQgLRM3YFUzRWIiBARcXS yaRMOjGLFoQkE6MWXdGVWpCZ6AZdYqPBHqDdT0AWOk VDPoAUYeca3OTYQfKCDzDnE2OOKqCEDnICWqBKnzVDDcGIMdWFDeDVGaPDQwOJ2IRxJxYPYxIeYzItjw LOOlQVXrev1HdAGlsQpdaz0UTVkVYj8EqAeiXQQ8DXpfFp5fxNKiCaTiFYNGPe8IolHxJKLkQHMEJQjv FBCgUGjgPJKcNvYmWHHlL4IqHHU4ZZV0KxM7PET2YZ B9VsLdBvT6XCUcAOQyDeBnGHVsMYK7PjT4HYEwIMS0SBZxIQVcAYR+AR0sNDq+It4Gc2QpgpB4siCtBI dwDsHqPe6RSDJEH1CNYi== ID Date Data Source [id number] 09/11/2020 07:37:00 PM EDT [facility] Name Value Range Interpretation Code Description Data Elissa rce(s) Supporting Document(s) SARS-CoV-2 RNA INHOUSE Negative Normal (applies to non-n umeric results) [facility] THIS IS A [facility] REPORTABLE COMMUNICABLE DISEASE. Testing was performed using the easyOwn[employer]it COVID-19 MDx Assay. This test has been authorized by FDA under an (Emergency Use Authorization) EUA for use by authorized laboratories for individuals who are suspected of COVID-19 by their healthcare provider. This test is only authorized for the duration of the declaration that circumstances exist justifying the authorization of emergency use of in vitro diagnostic tests for detection and/or diagnosis of SARS-CoV-2. Methodology: Endpoint RT-PCR. Fact sheets for this EUA assay can be found at the following links: Providers: https://www.fda.gov/media/937849/download Patients : https://www.fda.gov/media/625959/download THIS IS A [facility] REPORTABLE COMMUNICABLE DISEASE Negative results do not preclude SARS-CoV-2 infection and should not be used as the sole basis for patient management decisions. Negative results must be combined with clinical observations,patient history, and epidemiological information. ID Date Data Source [id number] 09/11/2020 08:00:00 AM EDT [facility] Name Value Range Interpretation Code Description Data Elissa rce(s) Supporting Document(s) Respiratory specimen severe acute respir atory syndrome coronavirus 2 (SARS-CoV-2) RNA Negative (qualifier value) [facility] This lab was ordered by [facility] and reported by . ID Date Data Source [id number] 09/01/2020 08:48:00 AM EDT [facility] Name Value Range Interpretation Code Description Data Elissa rce(s) Supporting Document(s) Sodium 139 mmol/L 136-145 Normal (applies to non-numeric resul ts) [facility] Potassium 3.5-5.1 Normal (applies to non-numeric resul ts) [facility] Chloride 102 mmol/L 98-107 Normal (applies to non-numeric resul ts) [facility] Carbon Dioxide CO2 21-32 Normal (applies to non-numer ic results) [facility] Anion Gap 5.0-16.0 Normal (applies to non-numeric resul ts) [facility] BUN 13 mg/dL 7-18 Normal (applies to non-numeric results) [facility] Creatinine,Serum 0.7-1.2 Normal (applies to non-numeric results) [facility] GFR >60 Normal (applies to non-numeric results) [facility] Glucose Level 100 mg/dL 60-99 Above high normal [facility] Reference range is only applicable when patient is fasting Note the following drug interference: Sulfasalazine Sulfapyridine Can see falsely depressed Can see falsely elevated result with up to 17% results with up to 11% decrease in measurement increase in measurement Recommend patients be collected for this test prior to administration of either drug. Calcium 8.5-10.1 Below low normal [facility] spital ID Date Data Source [id number] 09/01/2020 08:46:00 AM EDT [facility] Name Value Range Interpretation Code Description Data Elissa rce(s) Supporting Document(s) White Blood Count 3.5-10.5 Normal (applies to non-numeri c results) [facility] Red Blood Count 3.90-5.00 Normal (applies to non-numeric results) [facility] Hemoglobin 12.0-15.5 Normal (applies to non-numeric resul ts) [facility] Hematocrit 34.9-44.5 Normal (applies to non-numeric resul ts) [facility] Mean Corpuscular Volume 81.2-95.1 Above high normal [facility] Mean Corpuscular Hgb 25.6-32.2 Above high normal [facility] Mean Corpuscular Hgb Conc 32.0-36.0 Normal (applies to no n-numeric results) [facility] Red Cell Distribution Width 11.9-15.5 Normal (appli es to non-numeric results) [facility] Platelet Count 290 x10 3/uL 150-450 Normal (applies to non-numeric results) [facility] Mean Platelet Volume 9.4-12.4 Normal (applies to non-num jorge results) [facility] Neutrophils% (Auto) 31.0-71.0 Normal (applies to non-nume ezequiel results) [facility] Lymphocytes% (Auto) 20.0-55.0 Normal (applies to non-nume ezequiel results) [facility] Monocytes% (Auto) 4.0-12.0 Normal (applies to non-numeri c results) [facility] Eosinophils% (Auto) 1.0-8.0 Normal (applies to non-nume ezequiel results) [facility] Basophils% (Auto) 0.0-2.0 Normal (applies to non-numeri c results) [facility] Immature Granulocytes% (Auto) 0.0-2.0 Normal (elly lies to non-numeric results) [facility] Neutrophils# (Auto) 1.50-6.20 Normal (applies to non-nume ezequiel results) [facility] Lymphocytes# (Auto) 1.20-4.00 Normal (applies to non-nume ezequiel results) [facility] Monocytes# (Auto) 0.00-0.90 Normal (applies to non-numeri c results) [facility] Eosinophils# (Auto) 0.00-0.50 Normal (applies to non-nume ezequiel results) [facility] Basophils# (Auto) 0.00-0.20 Normal (applies to non-numeri c results) [facility] Immature Granulocytes# (Auto) 0.00-7.00 No rmal (applies to non-numeric results) [facility] ID Date Data Source [id number] 08/28/2020 09:31:[address] [facility] Name Value Range Interpretation Code Description Data Elissa rce(s) Supporting Document(s) Progress Note [facility] CDAXPl2jQpYGWlDr55/IDPmbUFZul0XrUEuyTFx6CPlaLFTwM8InCZV4yM1cGAA2TOcAKhSdSbZhDpI2 [facility] [file] Kr7SKpNgTQKOCkQxLC4YAWa= ID Date Data Source [id number] 08/20/2020 01:52:36 PM EDT [facility] Name Value Range Interpretation Code Description Data Elissa rce(s) Supporting Document(s) Progress Note [facility] LAAOJx0nSpIPJwMz90/OPRocOPTga4VhUQwnNDc7CXecIKLoR1LdLVO2aT2xUPS5QWdJOqMfSqEkNaZ1 lbm [file] AgICAgICAgICAgICAgICAgICAgICAgICAgICAgICAgICAgICAgICAgICAgICAgICAgICAgDQogICAgIC AgICAgICAgICAgICAgICAgICAgICAgICAgICAgICAg ICAgICAgICAgICAgICAgICAgICAgICAgICAgICAgICAgICAgICAgICAgICAgICAgICAgICAgICAgICAg ICAgDQogICAgICAgICAgICAgICAgICAgICAgICAgICAgICAgICAgICAgICAgICAgICAgICAgICAgICAg ICAgICAgICAgICAgICAgICAgICAgICAgICAgICAgIC AgICAgICAgICAgICAgDQogICAgICAgICAgICAgICAgICAgICAgICAgICAgICAgICAgICAgICAgICAgIC AgICAgICAgICAgICAgICAgICAgICAgICAgICAgICAgICAgICAgICAgICAgICAgICAgICAgICAgDQogIC AgICAgICAgICAgICAgICAgICAgICAgICAgICAgICAg ICAgICAgICAgICAgICAgICAgICAgICAgICAgICAgICAgICAgICAgICAgICAgICAgICAgICAgICAgICAg ICAgICAgDQogICAgICAgICAgICAgICAgICAgICAgICAgICAgICAgICAgICAgICAgICAgICAgICAgICAg ICAgICAgICAgICAgICAgICAgICAgICAgICAgICAgIC AgICAgICAgICAgICAgICAgDQogICAgICAgICAgICAgICAgICAgICAgICAgICAgICAgICAgICAgICAgIC AgICAgICAgICAgICAgICAgICAgICAgICAgICAgICAgICAgICAgICAgICAgICAgICAgICAgICAgICAgDQ ogICAgICAgICAgICAgICAgICAgICAgICAgICAgICAg ICAgICAgICAgICAgICAgICAgICAgICAgICAgICAgICAgICAgICAgICAgICAgICAgICAgICAgICAgICAg ICAgICAgICAgDQogICAgICAgICAgICAgICAgICAgICAgICAgICAgICAgICAgICAgICAgICAgICAgICAg ICAgICAgICAgICAgICAgICAgICAgICAgICAgICAgIC AgICAgICAgICAgICAgICAgICAgDQogICAgICAgICAgICAgICAgICAgICAgICAgICAgICAgICAgICAgIC AgICAgICAgICAgICAgICAgICAgICAgICAgICAgICAgICAgICAgICAgICAgICAgICAgICAgICAgICAgIC HbSDz5J5nbTNKyQFXvBZ7oOZr1Gr7+DQoNCmVuZHN0 vbSyaZ8PWG7ek7IyVItyCJSfc2JzNNa4QT2HEMSpYCoqSG2KUSmlgu6UIIHvAEXcxUIMa9hsQzMbSSH5 LXSwPmhqWI4FZPYhS7jldxDhTLWnXJISABilPKWBPZbbLQNEGJRlLVVePeGtAJdkBL7Ol4VzhEH2UOm+ Ye1ZMS2tk7XuKMuwLZJcSB6atx1JCOlYAtNlY1Gkfo F4UNG8GNBhGj1ADASlYRXwkQSxHCBdHBCBFxMqR6VyfP27FATYPc8+OXkzlyKhJbaKYiG9OGMeo6AwKD u0IN1FNXOwPOy6cVBdOQVmL2Uym5CgHe37EBRrJzhkLyM2EIFuFSEZpJ96LgQuNixeZCQmROOvZp2rET 9xQJRjIXYeXqUmEZYJYJ4DSBYqQQZzcWGuDKLuBUCR PO9IEEgoVNI2OVGdidHdiRPnJXksJU2JAALbpiZaFjfgXWMBMKo+Rj1GZU2vv2YxEEfaBCUzPV1vvr6X CIhLTzGrP3I9mCTvM7G3LIthNr3BDSEfRZKiIhJoAZHOANgqVV5QEJ1dekK9QA2EqKVtTYPvPAWgoYYf CJp4L55chPBnDUxvVT1THSS+Karen+Bi3BSTTgRFSuGS LbEdDmSGUIGxVrK3CkT4XHy6LvD4JcKO69vPhjzzAkWFijHP3OND7sCCDmCIWESN9RvDBqpL5lzrYoPW AqTNGEZmFiC12kmYAdYTKwCVU8HACuMq2JMPCnZ3VikrJtyCmfhlXkWVAwIZYFCQ7ZUSiygtFbmDDncE tnSJ60sVjsWY2GBl9PPcOsWT6onc6UzOGqIi0TZVHk HV0WKDMiNIXlOXMwQFD1ERHiMuBsIKzgAEHaXTSlNZF8UUZiUWIoYV0YJsQnYFYkVJd1IOPwABRoRTEd vm3VXRYpZMM4TIEjFMTsOHAgWESyNOtwDKOmLMDpWAZ0KUCsGCNrQK5RGgKhDLCkOADdSlEfRWEzWOIt ex5YMWBnBRQcFqJsJhQjIANrQUCyHUpgISGaFDI8PY w9JRAtERFaHJ5DCpFkDBYvXDH2ZWuoPWSoIIPxoe1SJJXcYUGeQYanQGMoSNShCGXbARwnSLLqMAJhCV JvCMJgICOzIG0OIiSuLLVtEZW6TwXtLMGcDYShsa1NNUHePQBgLDj3ChQrLNPrLMKcLImnVEBvMMIlRH UwRTQkACAtJQ5YBgJmLZNiYXW2IRrjTGTlFPOael0U YPMlIRVxKcT0YvHbJTIbLJPkQTsyNJQqMMJ6GIAaKURoQQBvJL6XFoHjCFDcAFZvERLoODLoOVTmez3Y WWFhXMQuZYNaTMBbQBKhFAUhIXbnVSJgWDH9NnhgYFRdUSRqEC5QRfErHCNkRMWgFQOoNGAwKXEhnh9K KEXkRJN0BfZuZFFfJUTcPLTwZDweGNUhDHU0EGJyOK MiSYYpNE0AUuJyCZXqSWg3TZykBVFmAZDnrg9QZDFwOBI3BAQ0IeJxRNLoWOYbLIvqKHZmSNX8JliiJM ApBASdPK7KWtWhHXUfDGc7MVefBGTySQWebu0SUEIqQCG7JLG4NYEwUYCwGYPzQPplIWPxRGPhFxWhEE ViKLHsET1FUmDzCTMkYQH4IUXvPDVfXDLwgn7DTLJy WKK1VYu0ADBiPGXfVZQtYHt7jjJttNAjZEd6AM2SV1JmqvLeChGRNs8Lv426FQFhVTIiBw7LL8duRd2e XAIkYCTAFr8GCWu1R6Y0Awv3ZoDxMpchLFOxHFDaAkDaYLRbZLd4TLNqBKV+AFhiAch4Wpk6UiUkYKN2 VXIzEzY3JkI9LfNeFJYqOkCxIE7xZCIKBb1+GKibzBAduNbaOOWXDgQfGUd5VQjgHNZOLh8T ID Date Data Source [id number] 08/18/2020 05:00:32 PM EDT [facility] Name Value Range Interpretation Code Description Data Elissa rce(s) Supporting Document(s) Progress Note [facility] ASCNPt2tPpBFMlKz47/UEAmkQMUwk3XtEPiyPBz4YNeeAWKzO2ZxLZP3cK2iAFY3ROeXNiRbDkKpRzT1 lbm [file] AgICAgICAgICAgICAgICAgICAgICAgICAgICAgICAgICAgICAgICAgICAgICAgICAgICAgICAgICAgIC DyVR8CBVQnRJFcXJEcVAZnCSAkERKjYKXtUOJwSRWv ICAgICAgICAgICAgICAgICAgICAgICAgICAgICAgICAgICAgICAgICAgICAgICAgICAgICAgICAgICAg UMGvKZWvAPAfPLJcZK7YCQXpJFOySPArRNJxWFMsMCVsVQVuYUUmDFTjKLTkLSQeWSGqMBUeDXAgOMNg ICAgICAgICAgICAgICAgICAgICAgICAgICAgICAgIC QsNHFqJFNoFOXjWIHuLZKoHCGeWEVoEY5WOIMsNTQzMGPiJFJqQVDgXOXaBHIrUXYmKHOxHEEtFLFpFY AgICAgICAgICAgICAgICAgICAgICAgICAgICAgICAgICAgICAgICAgICAgICAgICAgICAgICAgICAgIC HmNEKvNL0RRWWsIYDsIMVfXJMfEXHaFSKrCNOgPQVf ICAgICAgICAgICAgICAgICAgICAgICAgICAgICAgICAgICAgICAgICAgICAgICAgICAgICAgICAgICAg PAMdTBRpFXVoKJGeKEKnVX2AIQOmOSFuFCJqTXHtNFZpBIZpQAJlOZByBWNiDUIkQXQnCNLcJPVaASHb ICAgICAgICAgICAgICAgICAgICAgICAgICAgICAgIC YfLKAeEPPoYGObSWMwZFBcBPPpHLTjBRTgNA4LJRDqILWpOVNzXTTyUKNxVUYuKPDcSOJvOUKuIGZxXB AgICAgICAgICAgICAgICAgICAgICAgICAgICAgICAgICAgICAgICAgICAgICAgICAgICAgICAgICAgIC AsJHJtHHFkTR2YOZPbSUZpFEGbHBEbHHJoZOZfVWNj ICAgICAgICAgICAgICAgICAgICAgICAgICAgICAgICAgICAgICAgICAgICAgICAgICAgICAgICAgICAg SQRkSNYsLXWgQZEwZIMtGGSbFL8WLGDcRMFhNEZwXVSrPABcEXReIHZzTUYiZMTcCKRcLBLlZNQyIYZv ICAgICAgICAgICAgICAgICAgICAgICAgICAgICAgIC WmZFWwBPUvTPWoGAKuFGTzUDWqXGWvMPQjWAXkTI5EYDXnCBAjREBjNSHqUFOoQRTkKQDmAHTtNGYgXQ AgICAgICAgICAgICAgICAgICAgICAgICAgICAgICAgICAgICAgICAgICAgICAgICAgICAgICAgICAgIC NmAXGgLEMdPHMpBW7CFO25gVBee9S6YMKcHU8vnli/ Sc1WDBmhhqSblYTcMM9XNrLgSU4hhg2ONvSjCT4dvr7VZKkFGeGnU2C7mOPrFOLzUWAUKjSeN99dBHys Mw62WDnsFKUoHhQqDOv4Jk8IMdMkS6ciGWUbQfY4WDCvYtIfGBdqOO7Pd0YneEKxSJp+Rx0KPJ4xa4Wj NJvqWgNbFD2tts7HZBfFXmRvL8IcadW5IAPgKBYpBa 5NECBaQQLjiRByRzXyVSCXXrKlR5ZrlM56XCVTMf4+XDeymoZsBbyBKvOdWIWaa8JgPCb4KG5SGOWdLT i7yIDkKTXcF4Vsg7EsGq21YUEeHuljIOMntIHlAECMLLF3XKbuJJJdFRKmEi4bIx6mRZZiTXV5AvZ7BW LUYY7FMNWtSJHkvAZpFBUtDKGIVS3YVEfoXAS6DOYh mwMneMNpQLmbLO1ARMHqcfCkGmImGYTQNBe+Xx1QPQ6am8CvWGjiAGMvRJ4sju6ECFdMQhDrF3Q4tATd Q9V5MVlnBf1PDNSrBDVyCtAmIYUZQObzAQ1PAD9cjxP7XC5HxONkSKHeOJUuzTAvQNp4N02idKNsHBpp FO0LNGI+Karen+Sc9RQVDkANYlLCXpKwOcSMXYJkTeP1 CrD4WHj1NqJ0OiDL98bYpyaaMnNKebJD4GUD4bVPSrPFFMCC5PhIZgqQ5zcsKrAeIxQQDFNaUzC26kvY MqUMMjDMYwVVGeSu6ZVCTvI2WbbgPieSgqwmGsTDQuWPUERE1KLNzrepYlxYFvoVjoEQ64yCxqAA9TCx 5SKqCqFS4boi4RyXTaJr9MXTIsXV1TSMErEVMjIFLk GYM4VLTlVtAvZSrxQUQcUDBeXRB7KVGvCTLtFT6TKaUkODOnRVz6KMQtMRGgJINgpa0PQLIhZPXuWWLi WYVeJMZmZTAkOOhcONWgOUFnWCQ2BPHdJXZuQA5GUzEzGTBuHWXoHiFpJFWwWVVxod0PCMSnKSTmIxZ1 KGYxXQXhBPRdKRgfZACwJMExOVK6EIXlTRKrRV1HVy XeYNGeZLM3NyEsMIRbBGGlhv7ZDJWiLFEePlxfLpIiCGVyIGXmZXpkXRUrBKI3TNXtBRYnGZGuPF7RYk GcPJDoIOVvUtUwXNGdTIHibv9LIWLiYIWiOFR6BFRwPZKcJJRiHEyjFMKqLMK1RsS1YXCmESPzWB5LXw FaQBOxFAF3DwVsSYAcVZEksa8YUFArHROyNsG5AQFm JCGeHUNdCYavEBZzAUG0KKFxSDEpBVNgGD1RJmHiSXBnDXi4EtEuESDnOLGugv6OOCZxCBEpGXQbAWXr OFWlEJTwTAagSFCyEGR7ZbMpYCQmLWGqDP2DBwTcTEDsZWf5UvBbGUNqPAKgkk3NCPVrKNMqXMP4FWSz OHRiIFOqAItbBFViTLXdVmX4VPEvQPQhVW3URhLoYJ LmUcZ7MIvwOECyHHJpjk5VKHZkJWYkYNl9JBPgPHJdMAByPDk8jbChzTLpXQa3AX7LQ9WmgnOnXaDPRr 7Ix367VFU4HUYvYz0LO2vjDm2wLGTzPWKATf0ONMm4OeU3IJC0KMneB1UlFlWgV7G4RUNfXrQjJ4IyTW Q4YzE+TRqaQmacAKNuXBBkAoA6YMUlYvIcLQVbVEA1 DAI8EPvvXB1aUVBEYp7+QDmrhCInuOlhFHPUWcIxQUh1MMfeHKGKIp5S ID Date Data Source [id number] 06/19/2020 08:03:00 AM EST [facility] MEDICAL RECEPTION TEST TO BE ORDERED: PAP reflex HPV (HR)LAST MENSTRUAL PERIOD 2018 ABLATIONSOURCE OF SPECIMEN Endo/ExocxCLINICAL DIAGNOSIS Screening, low risk (cx) Name Value Range Interpretation Code Description Data Elissa rce(s) Supporting Document(s) Cytology Order MEDICAL RECEPTION Pap result LAB SendOut No rmal (applies to non-numeric results) [facility] ID Date Data Source [id number] 06/18/2020 04:51:00 PM EST [facility] Name Value Range Interpretation Code Description Data Elissa rce(s) Supporting Document(s) ID Date Data Source [id number] 05/19/2020 12:00:00 AM EST [facility] Name Value Range Interpretation Code Description Data Elissa rce(s) Supporting Document(s) 2019 Novel Coronavirus RNA [facility] This lab was ordered by [facility] and reported by [facility]. ID Date Data Source [id number] 05/18/2020 03:52:00 PM EST [facility] Name Value Range Interpretation Code Description Data Elissa rce(s) Supporting Document(s) SARS-CoV-2 MARINA result Not Detected Normal (applies to non- numeric results) [facility] This nucleic acid amplification test was developed and its performance characteristics determined by [facility]. Nucleic acid amplification tests include PCR and TMA. This test has not been FDA cleared or approved. This test has been authorized by FDA under an Emergency Use Authorization (EUA). This test is only authorized for the duration of time the declaration that circumstances exist justifying the authorization of the emergency use of in vitro diagnostic tests for detection of SARS-CoV-2 virus and/or diagnosis of COVID-19 infection under section 564(b)(1) of the Act, 21 U.S.C. 360bbb-3(b) (1), unless the authorization is terminated or revoked sooner. When diagnostic testing is negative, the possibility of a false negative result should be considered in the context of a patient's recent exposures and the presence of clinical signs and symptoms consistent with COVID-19. An individual without symptoms of COVID-19 and who is not shedding SARS-CoV-2 virus would expect to have a negative (not detected) result in this assay. Performed at: [facility] [address], [place], [place] [id number] Impregnator: Katie Hyatt PhD, Phone: [phone] ID Date Data Source [id number] 04/21/2020 08:03:00 AM [facility] Name Value Range Interpretation Code Description Data Elissa rce(s) Supporting Document(s) COVID-19 Result Normal (applies to non-numeric results) [facility] See scanned report ID Date Data Source [id number] 04/17/2020 06:54:00 AM EST [facility] Name Value Range Interpretation Code Description Data Elissa rce(s) Supporting Document(s) SARS coronavirus 2 RNA [facility] This lab was ordered by [facility] Jamie vincent and reported by [facility]. ID Date Data Source [id number] 02/04/2020 10:08:00 PM EDT [facility] Name Value Range Interpretation Code Description Data Elissa rce(s) Supporting Document(s) Sodium 140 mmol/L 136-145 Normal (applies to non-numeric resul ts) [facility] Potassium 3.5-5.1 Normal (applies to non-numeric resul ts) [facility] Chloride 106 mmol/L 98-107 Normal (applies to non-numeric resul ts) [facility] Carbon Dioxide CO2 21-32 Normal (applies to non-numer ic results) [facility] Anion Gap 5.0-16.0 Normal (applies to non-numeric resul ts) [facility] BUN 16 mg/dL 7-18 Normal (applies to non-numeric results) [facility] Creatinine,Serum 0.7-1.2 Normal (applies to non-numeric results) [facility] GFR >60 Normal (applies to non-numeric results) [facility] Glucose Level 98 mg/dL 60-99 Normal (applies to non-numeric re sults) [facility] Reference range is only applicable when patient is fasting Note the following drug interference: Sulfasalazine Sulfapyridine Can see falsely depressed Can see falsely elevated result with up to 17% results with up to 11% decrease in measurement increase in measurement Recommend patients be collected for this test prior to administration of either drug. Calcium 8.5-10.1 Below low normal [facility] Bilirubin,Total 0.1-1.9 Normal (applies to non-numeric results) [facility] SGOT(AST) 11 U/L 15-37 Below low normal [facility] Note the following drug interference: Sulfasalazine Sulfapyridine Can see falsely depressed Can see falsely elevated result with up to 10% results with up to 10% decrease in measurement increase in measurement Recommend patients be collected for this test prior to administration of either drug. SGPT(ALT) 23 U/L 12-78 Normal (applies to non-numeric resul ts) [facility] Note the following drug interference: Sulfasalazine Sulfapyridine Can see falsely depressed Can see falsely elevated result with up to 29% results with up to 10% decrease in measurement increase in measurement Recommend patients be collected for this test prior to administration of either drug. Alkaline Phosphatase 54 U/L 38-126 Normal (applies to non-num jorge results) [facility] can increase Alkaline Phosp le vels up to 2 times the normal adult value. Normal values for children and adolescents are 2 to 3 times the normal adult value. Total Protein 6.0-8.2 Normal (applies to non-numeric re sults) [facility] Albumin Level 3.4-5.0 Below low normal [facility] ID Date Data Source [id number] 02/04/2020 09:51:00 PM EDT [facility] Name Value Range Interpretation Code Description Data Elissa rce(s) Supporting Document(s) White Blood Count 3.5-10.5 Normal (applies to non-numeri c results) [facility] Red Blood Count 3.90-5.00 Below low normal [facility] Hemoglobin 12.0-15.5 Normal (applies to non-numeric resul ts) [facility] Hematocrit 34.9-44.5 Normal (applies to non-numeric resul ts) [facility] Mean Corpuscular Volume 81.2-95.1 Normal (applies to non- numeric results) [facility] Mean Corpuscular Hgb 25.6-32.2 Above high normal [facility] Mean Corpuscular Hgb Conc 32.0-36.0 Normal (applies to no n-numeric results) [facility] Red Cell Distribution Width 11.9-15.5 Normal (appli es to non-numeric results) [facility] Platelet Count 254 x10 3/uL 150-450 Normal (applies to non-numeric results) [facility] Mean Platelet Volume 9.4-12.4 Normal (applies to non-num jorge results) [facility] Neutrophils% (Auto) 31.0-71.0 Normal (applies to non-nume ezequiel results) [facility] Lymphocytes% (Auto) 20.0-55.0 Normal (applies to non-nume ezequiel results) [facility] Monocytes% (Auto) 4.0-12.0 Normal (applies to non-numeri c results) [facility] Eosinophils% (Auto) 1.0-8.0 Normal (applies to non-nume ezequiel results) [facility] Basophils% (Auto) 0.0-2.0 Normal (applies to non-numeri c results) [facility] Immature Granulocytes% (Auto) 0.0-2.0 Normal (elly lies to non-numeric results) [facility] Neutrophils# (Auto) 1.50-6.20 Above high normal [facility] Lymphocytes# (Auto) 1.20-4.00 Normal (applies to non-nume ezequiel results) [facility] Monocytes# (Auto) 0.00-0.90 Normal (applies to non-numeri c results) [facility] Eosinophils# (Auto) 0.00-0.50 Normal (applies to non-nume ezequiel results) [facility] Basophils# (Auto) 0.00-0.20 Normal (applies to non-numeri c results) [facility] Immature Granulocytes# (Auto) 0.00-7.00 No rmal (applies to non-numeric results) [facility] ID Date Data Source [id number] 02/05/2020 08:19:00 AM EDT [facility] Imaging Services Department Imaging Report [address], [place] [address] %(RAD)RES..mtdd.print.filter("line") Name: LORI LEVIN Edwin : 1975 Age/Sex: 44F Ordering Provider: SUNITA Chong Med Rec #: [id number] Reg Status: COUNTS INCLUDE [facility] BEDS AT [facility] Room #: Date of Service: 02/04/20 Report Number: [id number] cc:Sincere Rivero Reason, DO Send Report To: [id number] CT/CT Abdomen & Pelvis No Contras Reason for exam: pain FINDINGS: The chest base is clear. There is normal noncontrast CT appearance of the liver, spleen, pancreas, adrenal glands, and kidneys. No gallbladder wall thickening or biliary duct dilation. The visualized bowel is normal in caliber. The appendix is normal. No bowel wall thickening. The bladder is minimally distended which limits evaluation. The pelvic organs appear normal. No acute osseous abnormality. No lymphadenopathy. IMPRESSION: No acute intra- abdominal process. While performing the above CT exam, the following dose reduction techniques wereused: *Automated exposure control *Adjustment of the mA and/or kV according to patient size *Use of iterative reconstruction technique CT Dose in mGy: Contrast Agent: Amount in ml: Method of Administration: REPORT SIGNATURE ON FILE Reported By: Daniele Rodriguez MD <Electronically signed by Daniele Rodriguez MD> 02/05/20 1144 Dictation Date/Time: 02/04/202155 Transcribed Date/Time: 02/05/20818 [employer] Keyboard Operator: [place] Name Value Range Interpretation Code Description Data Elissa rce(s) Supporting Document(s) ID Date Data Source [id number] 02/04/2020 09:57:00 PM [facility] Collected By: Nurse Initials: lb Time Collected: 2129 Name Value Range Interpretation Code Description Data Elissa rce(s) Supporting Document(s) Color,Urine Colorl-Dk Y Normal (applies to non-numeric res ults) [facility] Clarity,Urine Clear Normal (applies to non-numeric re sults) [facility] Specific [place],Urine 1.005-1.030 Normal (applies to non- numeric results) [facility] pH,Urine 5.0-8.0 Normal (applies to non-numeric resul ts) [facility] Protein,Urine Negative Normal (applies to non-numeric re sults) [facility] Glucose,Urine Negative Normal (applies to non-numeric re sults) [facility] Ketones,Urine Negative Normal (applies to non-numeric re sults) [facility] Blood,Urine Negative Normal (applies to non-numeric resu lts) [facility] Bilirubin,Urine Negative Normal (applies to non-numeric results) [facility] Urobilinogen,Urine 0.2-1.0 Normal (applies to non-numer ic results) [facility] Leukocyte Esterase,Urine Negative Normal (applies to non -numeric results) [facility] Nitrite,Urine Negative Normal (applies to non-numeric re sults) [facility] ID Date Data Source [id number] 01/23/2020 10:59:00 AM EDT [facility] Name Value Range Interpretation Code Description Data Elissa rce(s) Supporting Document(s) Sodium 140 mmol/L 136-145 Normal (applies to non-numeric resul ts) [facility] Potassium 3.5-5.1 Normal (applies to non-numeric resul ts) [facility] Chloride 104 mmol/L 98-107 Normal (applies to non-numeric resul ts) [facility] Carbon Dioxide CO2 21-32 Normal (applies to non-numer ic results) [facility] Anion Gap 5.0-16.0 Normal (applies to non-numeric resul ts) [facility] BUN 8 mg/dL 7-18 Normal (applies to non-numeric results) [facility] Creatinine,Serum 0.7-1.2 Normal (applies to non-numeric results) [facility] GFR >60 Normal (applies to non-numeric results) [facility] Glucose Level 76 mg/dL 60-99 Normal (applies to non-numeric re sults) [facility] Reference range is only applicable when patient is fasting Note the following drug interference: Sulfasalazine Sulfapyridine Can see falsely depressed Can see falsely elevated result with up to 17% results with up to 11% decrease in measurement increase in measurement Recommend patients be collected for this test prior to administration of either drug. Calcium 8.5-10.1 Below low normal [facility] spital ID Date Data Source [id number] 01/23/2020 10:46:00 AM EDT [facility] Name Value Range Interpretation Code Description Data Elissa rce(s) Supporting Document(s) White Blood Count 3.5-10.5 Above high normal [facility] Red Blood Count 3.90-5.00 Normal (applies to non-numeric results) [facility] Hemoglobin 12.0-15.5 Normal (applies to non-numeric resul ts) [facility] Hematocrit 34.9-44.5 Normal (applies to non-numeric resul ts) [facility] Mean Corpuscular Volume 81.2-95.1 Above high normal [facility] Mean Corpuscular Hgb 25.6-32.2 Normal (applies to non-num jorge results) [facility] Mean Corpuscular Hgb Conc 32.0-36.0 Normal (applies to no n-numeric results) [facility] Red Cell Distribution Width 11.9-15.5 Normal (appli es to non-numeric results) [facility] Platelet Count 273 x10 3/uL 150-450 Normal (applies to non-numeric results) [facility] Mean Platelet Volume 9.4-12.4 Normal (applies to non-num jorge results) [facility] Neutrophils% (Auto) 31.0-71.0 Above high normal [facility] Lymphocytes% (Auto) 20.0-55.0 Below low normal [facility] Monocytes% (Auto) 4.0-12.0 Normal (applies to non-numeri c results) [facility] Eosinophils% (Auto) 1.0-8.0 Normal (applies to non-nume ezequiel results) [facility] Basophils% (Auto) 0.0-2.0 Normal (applies to non-numeri c results) [facility] Immature Granulocytes% (Auto) 0.0-2.0 Normal (elly lies to non-numeric results) [facility] Neutrophils# (Auto) 1.50-6.20 Above high normal [facility] Lymphocytes# (Auto) 1.20-4.00 Normal (applies to non-nume ezequiel results) [facility] Monocytes# (Auto) 0.00-0.90 Normal (applies to non-numeri c results) [facility] Eosinophils# (Auto) 0.00-0.50 Normal (applies to non-nume ezequiel results) [facility] Basophils# (Auto) 0.00-0.20 Normal (applies to non-numeri c results) [facility] Immature Granulocytes# (Auto) 0.00-7.00 No rmal (applies to non-numeric results) [facility] ID Date Data Source [id number] 01/23/2020 10:46:00 AM EDT [facility] Name Value Range Interpretation Code Description Data Elissa rce(s) Supporting Document(s) Erythrocyte Sedimentation rate 15 mm/hr 0-20 N ormal (applies to non-numeric results) [facility] ID Date Data Source [id number] 01/21/2020 06:26:00 PM EDT [facility] C/S IF INDICATED. Name Value Range Interpretation Code Description Data Elissa rce(s) Supporting Document(s) Color,Urine Colorl-Dk Y Normal (applies to non-numeric res ults) [facility] Clarity,Urine Clear Normal (applies to non-numeric re sults) [facility] Specific [place],Urine 1.005-1.030 Normal (applies to non- numeric results) [facility] pH,Urine 5.0-8.0 Normal (applies to non-numeric resul ts) [facility] Protein,Urine Negative Normal (applies to non-numeric re sults) [facility] Glucose,Urine Negative Normal (applies to non-numeric re sults) [facility] Ketones,Urine Negative Normal (applies to non-numeric re sults) [facility] Blood,Urine Negative Normal (applies to non-numeric resu lts) [facility] Bilirubin,Urine Negative Normal (applies to non-numeric results) [facility] Urobilinogen,Urine 0.2-1.0 Normal (applies to non-numer ic results) [facility] Leukocyte Esterase,Urine Negative Normal (applies to non -numeric results) [facility] Nitrite,Urine Negative Normal (applies to non-numeric re sults) [facility] RBC,Urine None Seen Normal (applies to non-numeric resul ts) [facility] WBC,Urine None Seen Normal (applies to non-numeric resul ts) [facility] Casts,Urine None Seen Normal (applies to non-numeric resu lts) [facility] Epithelial Cells,Urine None - Few Normal (applies to non-n umeric results) [facility] Bacteria,Urine None Seen [facility] ital Procedure Social History Code Duration Value Status Description Data Source(s ) Smoking 01/13/2021 12:00:00 AM EDT - 06/05/2004 12:00:00 AM EST Patient is a former smoker completed Patient is a former smoker MANUEL ([facility], ) Smoking 01/08/2021 12:00:00 AM EDT Former Smoker completed Former Smoker eCW1 ([facility]) Smoking 01/08/2021 12:00:00 AM EDT Former Smoker completed Former Smoker eCW1 ([facility]) Smoking 01/08/2021 12:00:00 AM EDT Former Smoker completed Former Smoker eCW1 ([facility]) Smoking 09/04/2020 12:00:00 AM EDT Former Smoker completed Former Smoker eCW1 ([facility]) Smoking 09/04/2020 12:00:00 AM EDT Former Smoker completed Former Smoker eCW1 ([facility]) Smoking 09/04/2020 12:00:00 AM EDT Former Smoker completed Former Smoker eCW1 ([facility]) Alcohol intake 08/17/2020 12:00:00 AM EDT Current non-d antony of alcohol (finding) completed Current non-drinker of alcohol (finding) [facility] Tobacco use and exposure 08/17/2020 12:00:00 AM EDT Never used co mpleted Never used [facility] Smoking 08/17/2020 12:00:00 AM EDT Never smoker completed Never s [facility] Vital Signs ID Date Data Source UNK Name Value Range Interpretation Code Description Data Source(s) Systolic blood pressure 122 mm[Hg] 122 mm[Hg] M EDENT ([facility]) Diastolic blood pressure 64 mm[Hg] 64 mm[Hg] MEDENT ([facility]) Heart rate 80 /min 80 /min MEDENT ([facility]) Respiratory rate 14 /min 14 /min MEDENT ( [facility]) Body temperature 99.4 [degF] 99.4 [degF] [facility] ([facility]) Body height 61 [in_i] 61 [in_i] MEDENT ([facility]) 5'1" Body weight 151.00 [lb_av] 151.00 [lb_av] MEDEN T ([facility]) Body mass index (BMI) [Ratio] 28.5 kg/m2 28.5 k g/m2 [facility] ([facility]) Doss body weight 105 [lb_av] 105 [lb_av] MEDEN T ([facility]) Body weight 68.494 kg 68.494 kg [facility] ([facility]) Body surface area Derived from formula 1.68 m2 1.68 m2 [facility] ([facility]) Body weight 66.226 kg 66.226 kg [facility]) Heart rate 74 /min 74 /min MEDENT ([facility]) Respiratory rate 14 /min 14 /min [facility] ( [facility]) Body temperature 99.9 [degF] 99.9 [degF] MED[facility] ([facility]) Body height 61 [in_i] 61 [in_i] [facility]) 5'1" Body weight 146.00 [lb_av] 146.00 [lb_av] MEDEN T ([facility]) Body mass index (BMI) [Ratio] 27.6 kg/m2 27.6 k g/m2 [facility] ([facility]) Doss body weight 105 [lb_av] 105 [lb_av] MEDEN T ([facility]) Body surface area Derived from formula 1.65 m2 1.65 m2 [facility] ([facility]) Systolic blood pressure 124 mm[Hg] 124 mm[Hg] M EDENT ([facility]) Diastolic blood pressure 72 mm[Hg] 72 mm[Hg] [facility] ([facility]) Body weight 147 [lb_av] 147 [lb_av] eCW1 ([facility]) Body weight 66.68 kg 66.68 kg eCW1 ([facility]) Body height [in_i] eCW1 ([facility]) Body mass index (BMI) [Ratio] 27.77 kg/m2 27.77 kg/m2 eCW1 ([facility]) Heart rate 91 /min 91 /min eCW1 ([facility] Respiratory rate 18 /min 18 /min eCW1 ([facility]) Body temperature 97.3 [degF] 97.3 [degF] eCW1 ( [facility]) Systolic blood pressure 118 mm[Hg] 118 mm[Hg] e CW1 ([facility]) Diastolic blood pressure 80 mm[Hg] 80 mm[Hg] eCW1 ([facility]) Diastolic blood pressure 84 mm[Hg] 84 mm[Hg] MEDENT ([facility], ) Respiratory rate 14 /min 14 /min MEDENT ( [facility]) Systolic blood pressure 122 mm[Hg] 122 mm[Hg] M EDENT ([facility]) Heart rate 68 /min 68 /min MEDENT ([facility]) Body temperature 96.0 [degF] 96.0 [degF] MEDENT ([facility]) Body surface area Derived from formula 1.63 m2 1.63 m2 MEDENT ([facility]) Body mass index (BMI) [Ratio] 26.6 kg/m2 26.6 k g/m2 MEDENT ([facility]) Doss body weight 105 [lb_av] 105 [lb_av] MEDEN T ([facility]) Body weight 63.958 kg 63.958 kg [facility] ([facility]) Body height 61 [in_i] 61 [in_i] [facility] 5'1" Body weight 141.00 [lb_av] 141.00 [lb_av] MEDEN T ([facility]) Heart rate 77 /min 77 /min eCW1 ([facility] Body weight 150 [lb_av] 150 [lb_av] eCW1 ([facility]) Body weight 68.04 kg 68.04 kg eCW1 ([facility]) Body height [in_i] eCW1 ([facility]) Body mass index (BMI) [Ratio] 28.34 kg/m2 28.34 kg/m2 eCW1 ([facility]) Systolic blood pressure 138 mm[Hg] 138 mm[Hg] e CW1 ([facility]) Respiratory rate 18 /min 18 /min eCW1 ([facility]) Body temperature 98.3 [degF] 98.3 [degF] eCW1 ( [facility]) Diastolic blood pressure 82 mm[Hg] 82 mm[Hg] eCW1 ([facility]) ID Date Data Source [id number] 09/15/2020 07:45:38 AM T [facility] Name Value Range Interpretation Code Description Data Source(s) WEIGHT RECORDED 147 lb 147 lb [facility] Body height Measured 61 in 61 in [facility] ID Date Data Source [id number] 06/09/2020 12:42:00 PM EST [facility] Name Value Range Interpretation Code Description Data Source(s) Weight Measurement Method 8 8 [facility] Weight 2288 2288 [facility] Temperature Source 7 7 [facility] Temperature 98.2 98.2 [facility]ital Respiratory Effort 1 1 [facility] Respiratory Rate 18 18 [facility] 67 67 [facility] Height 62 62 [facility] Blood Pressure 117/72 117/72 [facility] Weight Measurement Method 8 8 [facility] Weight 2288 2288 [facility] Temperature Source 7 7 [facility] Temperature 99.7 99.7 [facility] Respiratory Effort 1 1 [facility] Respiratory Rate 16 16 [facility] Pulse Rate 88 88 [facility] Height 62 62 [facility] Blood Pressure 131/90 131/90 [facility] Weight Measurement Method 8 8 [facility] Weight 2288 2288 [facility] Temperature Source 7 7 [facility] Temperature 99.7 99.7 [facility] Respiratory Effort 1 1 [facility] Respiratory Rate 16 16 [facility] Pulse Rate 88 88 [facility] Height 62 62 [facility] Blood Pressure 131/90 131/90 [facility] ID Date Data Source [id number] 02/28/2020 09:36:00 AM EDT [facility] Name Value Range Interpretation Code Description Data Source(s) Weight Measurement Method 8 8 [facility] Weight 2352 2352 [facility] Temperature Source 7 7 [facility] Temperature 96.3 96.3 [facility] Respiratory Effort 1 1 [facility] Respiratory Rate 18 18 [facility] Pulse Assessment Method 4 4 G [facility] Pulse Rate 93 93 [facility] Height 61 61 [facility] Blood Pressure 145/92 145/92 [facility] Weight Measurement Method 8 8 [facility] Weight 2352 2352 [facility] Temperature Source 7 7 [facility] Temperature 96.3 96.3 [facility] Respiratory Effort 1 1 [facility] Respiratory Rate 18 18 [facility] Pulse Assessment Method 4 4 [facility] 93 93 [facility] Height 61 61 [facility] Blood Pressure 145/92 145/92 [facility] Weight Measurement Method 8 8 [facility] Weight 2352 2352 [facility] Temperature Source 7 7 [facility] Temperature 96.3 96.3 [facility] Respiratory Effort 1 1 [facility] Respiratory Rate 18 18 [facility] Pulse Assessment Method 4 4 G [facility] Pulse Rate 93 93 [facility] Height 61 61 [facility] Blood Pressure 145/92 145/92 [facility] ID Date Data Source [id number] 02/28/2020 09:36:00 AM EDT [facility] Name Value Range Interpretation Code Description Data Source(s) Weight Measurement Method 8 8 [facility] Weight 2192 2192 [facility] Temperature Source 7 7 [facility] Temperature 98.1 98.1 [facility] Respiratory Effort 1 1 [facility] Respiratory Rate 18 18 [facility] Pulse Assessment Method 4 4 G [facility] Pulse Rate 79 79 [facility] Blood Pressure 118/76 118/76 [facility] Weight Measurement Method 8 8 [facility] Weight 2192 2192 [facility] Temperature Source 7 7 [facility] Temperature 98.1 98.1 [facility] Respiratory Effort 1 1 [facility] Respiratory Rate 18 18 [facility] Pulse Assessment Method 4 4 G [facility] Pulse Rate 79 79 [facility] Blood Pressure 118/76 118/76 [facility] Weight Measurement Method 8 8 [facility] Weight 2192 2192 [facility] Temperature Source 7 7 [facility] Temperature 98.4 98.4 [facility] Respiratory Effort 1 1 [facility] Respiratory Rate 16 16 [facility] Pulse Assessment Method 4 4 G [facility] Pulse Rate 79 79 [facility] Blood Pressure 118/76 118/76 [facility] ID Date Data Source [id number] 02/28/2020 09:36:00 AM EDT [facility] spital Name Value Range Interpretation Code Description Data Source(s) Weight Measurement Method 8 8 [facility] Weight 2400 2400 [facility] Temperature Source 7 7 [facility] Temperature 98.5 98.5 [facility] spital Respiratory Effort 1 1 [facility] Respiratory Rate 18 18 [facility] Pulse Assessment Method 4 4 G [facility] Pulse Rate 82 82 [facility] Height 61 61 [facility] Blood Pressure 108/72 108/72 [facility] ID Date Data Source [id number] 02/28/2020 09:36:00 AM EDT [facility]ital Name Value Range Interpretation Code Description Data Source(s) Weight Measurement Method 8 8 [facility] Weight 2432 2432 [facility] Temperature 97.5 97.5 [facility] spital Respiratory Effort 1 1 [facility] Respiratory Rate 14 14 [facility] Pulse Rate 78 78 [facility] Height 61 61 [facility] Blood Pressure 126/83 126/83 [facility] ID Date Data Source [id number] 02/28/2020 09:36:00 AM EDT [facility]ital Name Value Range Interpretation Code Description Data Source(s) Weight Measurement Method 8 8 [facility] Temperature Source 7 7 [facility] Temperature 97.9 97.9 [facility] spital Respiratory Effort 1 1 [facility] Respiratory Rate 16 16 [facility] Pulse Assessment Method 4 4 G [facility] Pulse Rate 56 56 [facility] Blood Pressure 113/54 113/54 [facility] Patient Treatment Plan of Care Planned Activity Planned Date Details Description Data Source (s) Hyoscyamine Sulfate 0.12 MG / Methenamin e 81.6 MG / Methylene blue 10.8 MG / phenyl salicylate 36.2 MG / Sodium Phosphate, Monobasic 40.8 MG Oral Tablet [Utira] 08/17/2020 12:00:00 AM EDT [facility] Ketorolac Tromethamine 10 MG Oral Tablet 07/30/2020 12:00:00 AM [facility]
[2021-03-18] MEDS ORDERED: fentaNYL 250 MCG/5 ML INJECTION (J3010) As Ordered ONE (07:21)
[2021-03-18] MEDS ORDERED: dexameTHASONE 4 MG/ML 1ML VIAL (J1100 PER 1MG) As Ordered ONE (07:21)
[2021-03-18] MEDS ORDERED: MIDAZOLAM INJ 2MG/2ML VIAL (J2250 PER 1MG) As Ordered ONE (07:21)
[2021-03-18] MEDS ORDERED: propofoL 200 MG/20 ML VIAL As Ordered ONE (07:21)
[2021-03-18] MEDS ORDERED: LIDOCAINE 2% 100MG/5ML SDV (FOR ANES.) As Ordered ONE (07:21)
[2021-03-18] MEDS ORDERED: ONDANSETRON 4MG/2ML VIAL As Ordered ONE (07:21)
[2021-03-18] MEDS ORDERED: ROCURONIUM BROMIDE 50 MG/5 ML VIAL As Ordered ONE ×2 (07:21→08:32)
[2021-03-18] MEDS ORDERED: HEPARIN SOD (PORCINE) 5000UNITS/ML 1ML VIAL/SYRINGE As Ordered ONE (07:52)
[2021-03-18] MEDS ORDERED: BUPIVACAINE LIPOSOME/PF 1.3% 20ML VIAL (13.3MG/ML)(EXPAREL)(C9290 PER1MG) As Ordered ONE (07:53)
[2021-03-18] MEDS ORDERED: LACRILUBE (AKWA TEARS) OPHTH OINT 3.5 GM As Ordered ONE ×2 (08:09→08:34)
[2021-03-18] MEDS ORDERED: PHENYLephrine 500MCG 5ML (100MCG/ML) SYRINGE As Ordered ONE (08:09)
[2021-03-18] MEDS ORDERED: ACETAMINOPHEN 1000MG 100ML IV BTL (OFIRMEV) (J0131 PER 10MG) As Ordered ONE (08:09)
[2021-03-18] MEDS ORDERED: SUGAMMADEX SODIUM 500 MG/5 ML VIAL (BRIDION) As Ordered ONE (08:09)
[2021-03-18] MEDS ORDERED: HYDROmorphone HCL 2 MG/ML 1ML VIAL As Ordered ONE (08:09)
[2021-03-18] MEDS ORDERED: GENTAMICIN SULF 80MG/2ML VIAL As Ordered ONE (08:21)
[2021-03-18] MEDS ORDERED: ESMOLOL INJ 100MG/10ML VIAL As Ordered ONE (09:21)
[2021-03-18] MEDS ORDERED: METOCLOPRAMIDE INJ 10MG/2ML VIAL (J2765 PER 1) As Ordered ONE (09:42)
[2021-03-18] MEDS ORDERED: LABETALOL 100MG/20ML VIAL As Ordered ONE (10:06)
[2021-03-18] MEDS ORDERED: traMADol 50 MG TAB PO PRN (11:00)
[2021-03-18] MEDS ORDERED: LR 1,000 ML IV SCH ×2 (11:00→11:50)
[2021-03-18] MEDS ORDERED: ACETAMINOPHEN TAB 650MG DOSE (2X325MG) PO PRN (11:00)
--- NOTE | 2021-03-18 11:09 | ROOPDOC ---
[facility] Report Of Operation Report of Operation DATE OF PROCEDURE: 03/18/21 PREOPERATIVE DIAGNOSIS: Acquired breast deformity. Bilateral breast hypertrophy. POSTOPERATIVE DIAGNOSIS: same PROCEDURE: Immediate post lumpectomy reconstruction with breast reduction approach. SURGEON: Dr Pollard ELECTRICAL LINESWORKER: Dr Disla ANESTHESIA: General ESTIMATED BLOOD LOSS: 75 cc FINDINGS: Left lateral breast defect s/p lumpectomy SPECIMENS: right breast 429 gm, Left breast 426 gm COMPLICATIONS: none REPLACED: none DRAINS: 10 mm ALCIDES x 2 POSTOPERATIVE CONDITION: stable DESCRIPTION OF PROCEDURE: This is a 45-year-old female who is planned to have a large lumpectomy on the left side by breast surgery team. Patient was previously evaluated for possible breast reduction in the past. She has large area on the left breast to be excised and moderate area on her right breast to be excised. We have collaborated with breast surgery for them to do initial part of the procedure and our team will be reconstructing both breasts via breast reduction approach. She is scheduled for bilateral breast reconstruction status post lumpectomy with breast reduction approach. Risks, benefits, and alternatives were discussed with the patient in detail, and she is ready to proceed. The day of surgery, she was marked in the upright position and informed consent was obtained. She measures 28 cm from sternal notch to nipple on both sides, IMF at 22 cm bilaterally. She was brought into the operating room and placed in the supine position. Preoperative antibiotics and 5000 units heparin subcutaneous were given. Sequential pneumatic stocking were placed on the lower calves. General anesthesia was induced. She was prepped and draped in the usual sterile fashion. We started our procedure on the left side. Her nipple areolar complex was outlined 42 mm in diameter, and the patient was marked according superior medial pedicle. We started our incision by scoring the nipple areolar complex area. Left lateral part of the breast was examined by breast surgery and that part of procedure was dictated separately but dissection was carried out to include all required tissue. The breast was evaluated after resection hemostasis was obtained. And then dissection was continued until the inferior lateral portion of the breast was resected. Hemostasis was obtained using electrocautery. The pedicle was de-epithelialized using Moreira scissors, good perfusion to the nipple at all times. Wound was irrigated with Ancef solution. We used Exparel 6 cc for local anesthesia to infiltrate in the Pectoralis muscle as well as the breast tissue. Than, pedicle was turned superior to its new location at 22 cm from sternal notch. The mound was re-created using conforming 0 Vicryl sutures. Pillars were closed with interrupted 3-0 Monocryl sutures. The vertical limb was 7 cm. Excess tissue inferiorly was measured and resected, creating the horizontal scar. Nipple area complex was brought into view through the new opening and sutured in place with 3-0 and 4-0 Monocryl sutures and a 5-0 plain. A 10 mm Jin-Dowling drain was placed through the lateral portion of the horizontal incision. Then we turned our attention to the right side. Her nipple areolar complex was outlined 42 mm in diameter, and the patient was marked according superior medial pedicle. The area of interest for breast team was in the inferior part of the breast. We started our incision by scoring the nipple areolar complex area, and then dissection was continued until the inferior lateral portion of the breast was resected under the guidance of Dr. Disla to include the area of interest. Hemostasis was obtained using electrocautery. The pedicle was de- epithelialized using Moreira scissors, good perfusion to the nipple at all times. Wound was irrigated with Ancef solution. We used Exparel 6 cc for local anesthesia to infiltrate in the Pectoralis muscle as well as the breast tissue. Than, pedicle was turned superior to its new location at 22 cm from sternal notch. The mound was re-created using conforming 0 Vicryl sutures. Pillars were closed with interrupted 3-0 Monocryl sutures. The vertical limb was 7 cm. Excess tissue inferiorly was measured and resected, creating the horizontal scar. Nipple area complex was brought into view through the new opening and sutured in place with 3-0 and 4-0 Monocryl sutures and a 5-0 plain. A 10 mm Jin-Dowling drain was placed through the lateral portion of the horizontal incision. Remaining Exparel injected in the horizontal incision. Total Exparel use 20 cc. Resected tissue sent to pathology in two specimens right and left breast tissue. Right breast 429 grams, left breast 426 grams. Dressings were applied to vertical and horizontal incision: Prinio strips and Dermabond. Nipples areolar complex: Xeroform and a bulky dressing with a surgical bra. Patient was extubated in the operating room without difficulty and was transf erred to the recovery room in stable condition. CLAIRE POLLARD DO Mar 18, 2021 11:09
--- NOTE | 2021-03-18 11:09 | POST-OPPD ---
Postoperative Procedure Note Date Of Procedure: Mar 18, 2021 PREOPERATIVE DIAGNOSIS: Acquired breast deformity. Bilateral breast hypertrophy. POSTOPERATIVE DIAGNOSIS: same PROCEDURE: Immediate post lumpectomy reconstruction with breast reduction approach. SURGEON: Dr Pollard OILER HELPER: Dr Disla ANESTHESIA: General ESTIMATED BLOOD LOSS: 75 cc FINDINGS: Left lateral breast defect s/p lumpectomy SPECIMENS: right breast 429 gm, Left breast 426 gm COMPLICATIONS: none REPLACED: none DRAINS: 10 mm ALCIDES x 2 POSTOPERATIVE CONDITION: stable CLAIRE POLLARD DO Mar 18, 2021 11:09
[2021-03-18] MEDS ORDERED: fentaNYL 100 MCG/2 ML INJECTION (J3010) As Ordered ONE (11:38)
[2021-03-18] MEDS: fentaNYL 100 MCG/2 ML INJECTION (J3010) IV PRN ×2 (11:39→11:44)
[2021-03-18] MEDS ORDERED: PERCOCET 5MG/325MG TAB PO PRN (11:50)
[2021-03-18] MEDS: ONDANSETRON 4MG/2ML VIAL IV PRN ×3 (11:57→21:10)
[2021-03-18] MEDS: MORPHINE 2 MG/ML 1ML VIAL (J2270) IV PRN ×2 (15:48→21:11)
[2021-03-18 16:00] VITALS: BP 126/79
[2021-03-18 17:00] VITALS: BP 124/80
[2021-03-18] MEDS: ceFAZolin SOD 2 GM in IV 1 EA IV SCH (17:34)
[2021-03-18 18:00] VITALS: BP 127/84
[2021-03-18 19:00] VITALS: BP 126/84
[2021-03-18 20:51] VITALS: BP 128/82
[2021-03-18] MEDS: HEPARIN SOD (PORCINE) 5000UNITS/ML 1ML VIAL/SYRINGE SQ SCH (21:10)
[2021-03-19] MEDS: ceFAZolin SOD 2 GM in IV 1 EA IV SCH (00:10)
[2021-03-19 06:47] VITALS: BP 130/80
[2021-03-19] MEDS: HEPARIN SOD (PORCINE) 5000UNITS/ML 1ML VIAL/SYRINGE SQ SCH (06:51)
--- OUTSIDE RECORDS SUMMARY | 2021-03-19 08:24 | CCD ---
Author Author [facility] Organization [facility] Address Unknown Phone Unavailable Care Team Providers Care Train Braker Name Role Phone Nick SCHILLING Unavailable Unavailable Cougler, S Nixon ELECTRO PLATER Unavailable Unavailable Cougler, S Nixon ELECTRO PLATER Unavailable Unavailable Cougler, S Nixon ELECTRO PLATER Unavailable Unavailable Cougler, S Nixon ELECTRO PLATER Unavailable Unavailable Cougler, S Nixon ELECTRO PLATER Unavailable Unavailable Cougler, S Nixon ELECTRO PLATER Unavailable Unavailable Cougler, S Nixon ELECTRO PLATER Unavailable Unavailable Cougler, S Nixon ELECTRO PLATER Unavailable Unavailable Cougler, S Nixon ELECTRO PLATER Unavailable Unavailable Cougler, S Nixon ELECTRO PLATER Unavailable Unavailable Cougler, S Nixon ELECTRO PLATER Unavailable Unavailable Cougler, S Nixon ELECTRO PLATER Unavailable Unavailable Cougler, S Nixon ELECTRO PLATER Unavailable Unavailable Cougler, S Nixon ELECTRO PLATER Unavailable Unavailable Cougler, S Nixon ELECTRO PLATER Unavailable Unavailable Cougler, S Nixon ELECTRO PLATER Unavailable Unavailable Cougler, S Nixon ELECTRO PLATER Unavailable Unavailable Cougler, S Nixon ELECTRO PLATER Unavailable Unavailable Cougler, S Nixon ELECTRO PLATER Unavailable Unavailable Cougler, S Nixon ELECTRO PLATER Unavailable Unavailable Cougler, S Nixon ELECTRO PLATER Unavailable Unavailable Cougler, S Nixon ELECTRO PLATER Unavailable Unavailable Cougler, S Nixon ELECTRO PLATER Unavailable Unavailable Cougler, S Nixon ELECTRO PLATER Unavailable Unavailable Cougler, S Nixon ELECTRO PLATER Unavailable Unavailable Cougler, S Nixon ELECTRO PLATER Unavailable Unavailable Cougler, S Nixon ELECTRO PLATER Unavailable Unavailable Cougler, S Nioxn ELECTRO PLATER Unavailable Unavailable Cougler, S Nixon ELECTRO PLATER Unavailable Unavailable Cougler, S Nixon ELECTRO PLATER Unavailable Unavailable Cougler, S Nixon ELECTRO PLATER Unavailable Unavailable Cougler, S Nixon ELECTRO PLATER Unavailable Unavailable Cougler, S Nixon ELECTRO PLATER Unavailable Unavailable Cougler, S Nixon ELECTRO PLATER Unavailable Unavailable Cougler, S Nixon ELECTRO PLATER Unavailable Unavailable Cougler, S Nixon ELECTRO PLATER Unavailable Unavailable Cougler, S Nixon ELECTRO PLATER Unavailable Unavailable Cougler, S Nixon ELECTRO PLATER Unavailable Unavailable Cougler, S Nixon ELECTRO PLATER Unavailable Unavailable Cougler, S Nixon ELECTRO PLATER Unavailable Unavailable Cougler, S Nixon ELECTRO PLATER Unavailable Unavailable Cougler, S Nixon ELECTRO PLATER Unavailable Unavailable Cougler, S Nixon ELECTRO PLATER Unavailable Unavailable Cougler, S Nixon ELECTRO PLATER Unavailable Unavailable Wong, [phone] L Joann MD Unavailable [phone] Wong, [phone] L Joann MD Unavailable [phone] Wong, [phone] L Joann MD Unavailable [phone] Wong, [phone] L Joann MD Unavailable [phone] Wong, [phone] L Joann MD Unavailable [phone] Wong, [phone] L Joann MD Unavailable [phone] Wong, [phone] L Joann MD Unavailable [phone] Wong, [phone] L Joann MD Unavailable [phone] Wong, [phone] L Joann MD Unavailable [phone] Wong, [phone] L Joann MD Unavailable [phone] Wong, [phone] L Joann MD Unavailable [phone] Wong, [phone] Nick David MD Unavailable [phone] Nick David MD Unavailable [phone] Nick David MD Unavailable [phone] LATRICE, E [...] Unavailable Jamie BROOKE MD Unavailable Unavailable Jamie RBOOKE MD Unavailable Unavailable Jamie BROOKE MD Unavailable [...] Unavailable Fang, M Seng DO Unavailable Unavailable SYDNEE NULL MD Unavailable Unavailable [...] Unavailable Unavailable Jamie BROOKE MD Unavailable Unavailable MARAVEGIAHarris Marquez MD Unavailable Unavailable MARAVEGIASHarris MD Unavailable Unavailable MARAVEGIASHarris MD Unavailable Unavailable MARAVEGIASHarris MD Unavailable Unavailable MARAVEGIASHarris MD Unavailable Unavailable MARAVEGIASHarris MD Unavailable Unavailable MARAVEGIASHarris MD Unavailable Unavailable MARAVEGIAS N JUDD ANDERS Unavailable Unavailable MARAVEGIAS N JUDD ANDERS Unavailable Unavailable MARAVEGIAS N JUDD ANDERS Unavailable Unavailable MARAVEGIAS N JUDD ANDERS Unavailable Unavailable MARAVEGIAS N JUDD ANDERS Unavailable Unavailable MARAVEGIAS N JUDD ANDERS Unavailable Unavailable MARAVEGIAS N JUDD ANDERS Unavailable Unavailable [place], F Bradley PA Unavailable Unavailable [place], F Bradley PA Unavailable Unavailable Cam, F Bradley PA Unavailable Unavailable Cam, F Bradley PA Unavailable Unavailable [place], F Bradley PA Unavailable Unavailable Cam, F Bradley PA Unavailable Unavailable [place], F Bradley PA Unavailable Unavailable [place], F Bradley PA Unavailable Unavailable Cam, F Bradley PA Unavailable Unavailable [place], F Bradley PA Unavailable Unavailable GINZJAIR LUIS Unavailable Unavailable GINZFAWAD ADAMASHA Unavailable Unavailable GINZBURG LUIS MD Unavailable Unavailable GINZBURG LUIS MD Unavailable Unavailable GINZBURG LUIS MD Unavailable Unavailable GINZBURG LUIS MD Unavailable Unavailable GINZJAIR LUIS MD Unavailable Unavailable GINZBURG LUIS MD Unavailable Unavailable GINZBURG LUIS MD Unavailable Unavailable GINZJAIR LUIS MD Unavailable Unavailable GINZJAIR LUIS Unavailable Unavailable GINZFAWAD ADAMASHA Unavailable Unavailable GINZRHYS ADAMA Unavailable Unavailable GINZJAIR LUIS MD Unavailable Unavailable GINZJAIR LUIS Unavailable Unavailable GINZJAIR LUIS Unavailable Unavailable GINETIENNE LUIS Unavailable Unavailable GINZJAIR LUIS Unavailable Unavailable GINZJAIR LUIS Unavailable Unavailable GINZJAIR LUIS Unavailable Unavailable GINZJAIR LUIS MD Unavailable Unavailable GINRHYS CLIFTONA Unavailable Unavailable GINRHYS CLIFTONA Unavailable Unavailable GINRHYS CLIFTONA Unavailable Unavailable GINZFAWAD ADAMASHA Unavailable Unavailable GINZJAIR LUIS Unavailable Unavailable GINZJAIR LUIS Unavailable Unavailable GINZRHYS ADAMA Unavailable Unavailable GINZJAIR LUIS Unavailable Unavailable GINZJAIR LUIS Unavailable Unavailable GINZJAIR LUIS MD Unavailable Unavailable GINZJAIR LUIS MD Unavailable Unavailable GINZBURG LUIS MD Unavailable Unavailable GINZJAIR LUIS Unavailable Unavailable GINZJAIR LUIS Unavailable Unavailable GINZJAIR LUIS Unavailable Unavailable GINZJAIR LUIS MD Unavailable Unavailable GINZBURG LUIS MD Unavailable Unavailable GINZBURG LUIS MD Unavailable Unavailable GINZBURG LUIS Unavailable Unavailable GINZBURG LUIS MD Unavailable Unavailable GINZBURG LUIS MD Unavailable Unavailable GINZBURG LUIS MD Unavailable Unavailable GINZJAIR LUIS MD Unavailable Unavailable GINZBURG LUIS MD Unavailable Unavailable GINZJAIR LUIS MD Unavailable Unavailable GINETIENNE LUIS MD Unavailable Unavailable GINZBURG LUIS MD Unavailable Unavailable GINZJAIR LUIS MD Unavailable Unavailable GINZBURG LUIS MD Unavailable Unavailable GINZBURG LUIS MD Unavailable Unavailable GINZBURG LUIS MD Unavailable Unavailable GINZBURG LUIS MD Unavailable Unavailable GINZBURG, LUIS MD Unavailable Unavailable GINZBURG LUIS MD Unavailable Unavailable GINZBURG LUIS MD Unavailable Unavailable GINZBURG LUIS MD Unavailable Unavailable GINZBURG LUIS MD Unavailable Unavailable GINZBURG LUIS MD Unavailable Unavailable GINZBURG LUIS MD Unavailable Unavailable GINZBURG LUIS MD Unavailable Unavailable GINZBURG LUIS MD Unavailable Unavailable GINZJAIR LUIS MD Unavailable Unavailable GINZBURG LUIS MD Unavailable Unavailable GINZBURG, LUIS MD Unavailable Unavailable GINZBURG LUIS MD Unavailable Unavailable GINZBURG LUIS MD Unavailable Unavailable GINZFAWAD ADAMASHA MD [...] Hadian, Josue Unavailable Unavailable ZEGIL, D ELIJAH HAT PRESSER Unavailable Unavailable ZEGIL, D ELIJAH HAT PRESSER Unavailable Unavailable ZEGIL, D ELIJAH HAT PRESSER Unavailable Unavailable ROCIO FREYELLE PA Unavailable Unavailable ROCIO FREYELLE PA Unavailable Unavailable ROCIO FREYELLE PA Unavailable Unavailable ROCIO FREYELLE PA Unavailable Unavailable KELROCIOABRAN PA Unavailable Unavailable ROCIO FREYELLE PA Unavailable Unavailable ROCIO FREYELLE PA Unavailable Unavailable Jamie BROOKE MD Unavailable Unavailable [...] Unavailable Unavailable Jamie BROOKE MD Unavailable Unavailable UNKNOWN Unavailable Unavailable Jamie BROOKE MD Unavailable Unavailable Jamie BROOKE MD Unavailable Unavailable Jamie BROOKE MD Unavailable Unavailable Jamie BROOKE MD Unavailable Unavailable Jamie BROOKE MD Unavailable Unavailable Jamie BROOKE MD Unavailable Unavailable Jamie BROOKE MD Unavailable Unavailable Jamie BROOKE MD Unavailable Unavailable Jamie BROOKE MD Unavailable Unavailable Jamie BROOKE MD Unavailable Unavailable Jmaie BROOKE MD Unavailable Unavailable Jamie BROOKE MD Unavailable Unavailable Jamie BROOKE MD Unavailable Unavailable Jamie BROOKE MD Unavailable Unavailable Jamie RBOOKE MD Unavailable Unavailable Jamie BROOKE MD Unavailable [...] Anderson CPNP-PC Unavailable Unavailable BROWN, YONI MAYE ELECTRO PLATER Unavailable Unavailable BROWN, YONI MAYE ELECTRO PLATER Unavailable Unavailable BROWN, YONI MAYE ELECTRO PLATER Unavailable Unavailable BROWN, YONI MAYE ELECTRO PLATER Unavailable Unavailable BROWN, YONI MAYE ELECTRO PLATER Unavailable Unavailable BROWN, YONI MAYE ELECTRO PLATER Unavailable Unavailable BROWN, YONI MAYE ELECTRO PLATER Unavailable Unavailable BROWN, YONI MAYE ELECTRO PLATER Unavailable Unavailable BROWN, YONI MAYE ELECTRO PLATER Unavailable Unavailable BROWN, YONI MAYE ELECTRO PLATER Unavailable Unavailable BROWN, YONI MAYE ELECTRO PLATER Unavailable Unavailable BROWN, YONI MAYE ELECTRO PLATER Unavailable Unavailable BROWN, YONI MAYE ELECTRO PLATER Unavailable Unavailable BROWN, YONI MAYE ELECTRO PLATER Unavailable Unavailable BROWN, YONI MAYE ELECTRO PLATER Unavailable Unavailable BROWN, YONI MAYE ELECTRO PLATER Unavailable Unavailable BROWN, YONI MAYE ELECTRO PLATER Unavailable Unavailable BROWN, YONI MAYE ELECTRO PLATER Unavailable Unavailable BROWN, YONI MAYE ELECTRO PLATER Unavailable Unavailable BROWN, YONI MAYE ELECTRO PLATER Unavailable Unavailable BROWN, YONI MAYE ELECTRO PLATER Unavailable Unavailable BROWN, YONI MAYE ELECTRO PLATER Unavailable Unavailable BROWN, YONI MAYE ELECTRO PLATER Unavailable Unavailable BROWN, YONI MAYE ELECTRO PLATER Unavailable Unavailable BROWN, YONI MAYE ELECTRO PLATER Unavailable Unavailable BROWN, YONI MAYE ELECTRO PLATER Unavailable Unavailable BROWN, YONI MAYE ELECTRO PLATER Unavailable Unavailable BROWN, YONI MAYE ELECTRO PLATER Unavailable Unavailable BROWN, YONI MAYE ELECTRO PLATER Unavailable Unavailable BROWN, YONI MAYE ELECTRO PLATER Unavailable Unavailable BROWN, YONI MAYE ELECTRO PLATER Unavailable Unavailable BROWN, YONI MAYE ELECTRO PLATER Unavailable Unavailable BROWN, YONI MAYE ELECTRO PLATER Unavailable Unavailable BROWN, YONI MAYE ELECTRO PLATER Unavailable Unavailable BROWN, YONI MAYE ELECTRO PLATER Unavailable Unavailable BROWN, YONI MAYE ELECTRO PLATER Unavailable Unavailable BROWN, YONI MAYE ELECTRO PLATER Unavailable Unavailable BROWN, YONI MAYE ELECTRO PLATER Unavailable Unavailable Abran Frey Unavailable Unavailable Re-disclosure [...] is protected by Article 27-F of the [facility] Public Health law. If you continue you may have access to information: Regarding HIV / AIDS; Provided by facilities licensed or operated by the [facility] Office of Mental Health; or Provided by the [facility] Office for People With Developmental Disabilities. If such information is present, then the following [facility] mandated warning applies: This information has been [...] law may result in a fine or care home sentence or both. A general authorization for the release of medical or other information is NOT sufficient authorization for further disc losure. Allergies and Adverse Reactions Type Description Substance Reaction Status Data Source(s ) Propensity to adverse reactions NO KNOWN ALLERGIES NO KNOWN ALLERGIES [facility] Drug allergy Drug allergy No Known Allergies [facility] Family History Family Member Name Family Member Gender Family Member Status Date o f Status Description Data Source(s) Unknown Male Problem MEDENT ([facility], ) Unknown Male Problem MEDENT ([facility]) Unknown Unknown Encounters Encounter Providers Location Date Indications Data Source(s ) Unknown [address] [facility] [address] 03/11/2021 12:00:00 AM EDT eCW1 ([facility]) Outpatient Attender: SINCERE RED DO ED-LAB 03/08 08:19:00 AM EDT - 03/08/2021 08:20:00 AM EDT N6009 [facility] N6009 Patient discharged. Outpatient Attender: Nixon Bowens NP ED-LABPNP 02/17 11:22:00 AM EDT - 02/17/2021 11:23:00 AM EDT Z20.828 [facility] Z20.828 Patient discharged. Unknown [address] [facility] [place] [address] 01/28/2021 12:00:00 AM EDT eCW1 ([facility]) Outpatient Attender: Angélica Karimiharris MONTILLANP-PC ED-LABPNP 01/20/2021 02:43:00 PM EDT - 01/20/2021 02:44:00 PM EDT Z1159 [facility] Z1159 Patient discharged. Outpatient Attender: CLAIRE Mosquera/Tye/Obed/Lorenza de la cruz 01/11/2021 03:30:00 PM EDT MEDENT ([facility] Outpatient [address] [facility] [address] 01/08/2021 12:00:00 AM EDT eCW1 ([facility]) Unknown [address] [facility] [address] 12/23/2020 12:00:00 AM EDT eCW1 ([facility]) Outpatient Attender: ARTUR BROOKE MD [id number] 12:00:00 AM EDT - 12/11/2020 12:24:36 PM [facility] Outpatient Attender: ARTUR BROOKE MD 12/01/2020 12:00:00 AM [facility] Unknown [address] [facility] [address] 11/05/2020 12:00:00 AM EDT eCW1 ([facility]) Outpatient Attender: ARTUR BROOKE MD 10/30/2020 12:00:[address] [facility] Outpatient Attender: MAYE KNAPP NP CPSCAORT-CPSGNOBG 10/04 11:46:00 AM EDT - 10/28/2020 11:47:[facility]. [facility]patient Attender: ARTUR CedeñoA-XXPBOBGY 10/26/2020 06:31:38 PM [facility] Outpatient CPSCAORT-LABEJN 10/26/2020 03:17:00 PM EDT [facility] Outpatient Attender: ARTUR BROOKE MD ED-LAB 11:01:00 AM EDT - 10/26/2020 11:02:00 AM EDT R350 [facility] R350 Patient discharged. Outpatient Attender: CLAIRE Mosquera/Tye/Obed/Lorenza de la cruz 09/30/2020 10:45:00 AM EDT MEDENT ([facility], ) Outpatient Attender: ARTUR BROOKE MD [id number]-[id number] 09/21/2020 03:33:02 PM [facility] Outpatient Attender: ARTUR CedeñoA-XXPBOBGY 09/17/2020 12:17:20 PM [facility] Outpatient Attender: ARTUR BROOKE MD 09/16/2020 11:07:42 AM E DT Lab [facility] Outpatient Attender: ARTUR BROOKE MDAdmitter: ARTUR BROOKE MD 09/16/2020 09:50:00 AM EDT - 09/17/2020 01:42:00 PM EDT PELVIC PAIN, DYSPAREUNIA [facility] PELVIC PAIN, DYSPAREUNIA Patient discharged. ( in Healthcare facility) Attender: ARTUR BROOKE MDAdmitter: ARTUR BROOKE MDConsultant: SINCERE RED DO 09/16/2020 09:50:00 AM [facility] Outpatient Attender: ARTUR BROOKE MD ED-LABPNP 08:26:00 AM EDT - 09/11/2020 08:27:00 AM EDT [id number] [facility] [id number] Patient discharged. Outpatient [address] [facility] [place] [address] 09/04/2020 12:00:00 AM EDT eCW1 ([facility]) Outpatient Attender: ARTUR BROOKE MD ED-LABGH 08:01:00 AM EDT - 09/01/2020 08:02:00 AM EDT R10.2 [facility] R10.2 Patient discharged. Outpatient Attender: ARTUR BROOKE MD [id number]-[id number] 12:00:00 AM EDT - 08/27/2020 04:25:31 PM [facility] Outpatient Attender: MAGDALENA SHAKIR 08/27/2020 12:00:00 AM [facility] Unknown [address] [facility], [facility] [address] 08/21/2020 12:00:00 AM EDT [facility] ([facility]) Outpatient Attender: ARTUR BROOKE MD 07A-[id number] 08/18/2020 05:00:32 PM [facility] Outpatient Attender: LUIS CHOWDHURY MD [id number] 12:00:00 AM EDT - 08/17/2020 04:43:32 PM [facility] Outpatient Attender: MAYE KNAPP NP CPSCAORT-CPSGNOBG 07/07 01:39:00 PM EST - 07/30/2020 01:40:00 PM EST [facility] Patient discharged. Outpatient Attender: MAYE KNAPP NP CPSCAORT-CPSGNOBG 06/2020 03:01:00 PM EST - 07/06/2020 03:02:00 PM EST [facility] Patient discharged. [facility] Att[facility] Head[facility] 06/29/2020 08:0 2:00 AM EST 2 COVID VACCINE [facility] 2 COVID VACCINE Outpatient Attender: UNKNOWN CPSCAORT-LABEJN 06/11/2020 05:45:00 PM E [facility] Outpatient Attender: SYDNEE NULL MD, ED-LABPNP 2020 04:09:00 PM EST - 06/11/2020 04:10:00 PM EST Z124 [facility] Z124 Patient discharged. Outpatient Attender: SYDNEE NULL MD CPSCAORT-CPSGNOBG 12/2020 03:04:00 PM EST - 06/11/2020 03:05:00 PM EST Z12.4 [facility] Z12.4 Patient discharged. Outpatient Attender: [facility]eng Headley [facility] 06/01/2020 09:1 8:00 AM EST COVID VACCINE 1 [facility] COVID VACCINE 1 Outpatient CPSCAORT-LABEJN 04/17/2020 09:48:00 AM [facility] Outpatient Attender: Josue Vaca ED-LABPNP 0 07:26:00 AM EST - 04/17/2020 07:27:00 AM EST POSS EXPOSURE [facility] POSS EXPOSURE Patient discharged. Preadmit Attender: JUDD FERREIRA MD ED-ED 02/28/2020 09:35:00 AM EDT POSSIBLE UTI [facility] POSSIBLE UTI Outpatient Attender: MAYE KNAPP NP CPSCAORT-CPSGNOBG 02/03 03:06:00 PM EDT - 02/19/2020 03:07:[address] [facility] Patient discharged. Outpatient Attender: MAYE KNAPP NP CPSCAORT-CPSGNOBG 07/2019 10:31:00 AM EDT - 02/05/2020 10:32:[address] [facility] Patient discharged. Emergency Attender: ELIJAH POWELLP ED-ED 06/2019 08:44:00 PM EDT - 02/04/2020 10:45:00 PM EDT STOMACH PAIN [facility] STOMACH PAIN Patient discharged. Outpatient Attender: SINCERE REASON DO ED-LAB 01/22 09:32:00 AM EDT - 01/23/2020 09:33:00 AM EDT 90 [facility] N390 Patient discharged. [facility] 05:23:00 PM EDT - 01/21/2020 05:24:00 PM EDT [address] N390 Patient discharged. Emergency Attender: Bradley BECKER ED-ED 09:18:00 PM EDT - 03/27/2019 09:47:00 PM EDT HEADACHE,NECK PAIN,SORE THROAT [facility] HEADACHE,NECK PAIN,SORE THROAT Patient discharged. Emergency Attender: Abran Jjender: ABRAN BECKER ED-ED 03/08/2019 07:50:00 PM EDT - 03/08/2019 09:32:00 PM EDT FREQUENT URINATION [facility] FREQUENT URINATION Patient discharged. Emergency Attender: Nixon Bowens NP ED-ED 07/02 04:32:00 PM EST - 07/02/2018 10:58:00 PM EST INFECTION/POST OP [facility] INFECTION/POST OP Outpatient Attender: [id number] Joann Wong MD ED-SDCSDC 06/21/2018 08:44:00 AM EST - 06/21/2018 03:45:00 PM EST PELVIC PAIN [facility] PELVIC PAIN Emergency Attender: JUDD FERREIRA MD ED-ED 0 02/09/2018 10:55:00 AM EDT - 02/09/2018 01:32:00 PM EDT SEVERE ABD PAIN [facility] SEVERE ABD PAIN Immunizations Vaccine Date Status Description Data Source(s) COVID-19 VACCINE Moderna 06/29/2020 12:00:00 AM EST completed [facility] Vaccine Series Complete: YESThis Data wa s Submitted to [facility] [employer]. COVID-19 VACCINE Moderna 06/01/2020 12:00:00 AM EST completed [facility] Vaccine Series Complete: NOThis Data was Submitted to [facility] [employer]. Medications Medication Brand Name Start Date Product [...] by mouth Three times daily as needed [facility] 10 mg 07/30/2020 12:00:00 AM EST [...] WITH FOOD OR MILK FOR 5 DAYS [facility] 150 mg 07/20/2020 12:00:00 AM EST [...] type / Coverage type Policy ID Covered libertarian ID Covered libertarian's relationship to dueñas Policy Dueñas Plan Information EXCELLUS C [id number] Self [id number] TYLER CARE [id number] S [id number] TYLER [id number] SP [id number] [employer] [place] PPO 302/307 [id number] SP [id number] EXCELLUS H [id number] Self [id number] EXCELLUS H [id number] Self [id number] FINANCIAL ASSISTANCE 445 [address] 445 [employer] [place] [id number] S [id number] [employer] [place] [id number] S [id number] FINANCIAL ASSISTANCE [id number] S [id number] TYLER CARE [id number] S [id number] TYLER CARE [id number] S [id number] TYLER CARE [id number] S [id number] ANSI-Commercial [id number] ANSI-Commercial [id number] Excell[employer] BCBS Health Maintenance Organization (HMO) [id number] Self [id number] [facility] Commercial [id number] Self [id number] SELF PAY ONLY [id number] SP [id number] [place] [id number] S [id number] [place] [facility] Maintenance Organization (O) [id number] Se lf TYLER [id number] 18 [id number] TYLER -CLINIC [id number] 18 [id number] MEDICAID [id number] S [id number] [facility] [place] [place]P [id number] 01 [id number] BLUE CROSS HMO BLUE -O/P [id number] 18 [id number] BLUE [place] HMO BLUE -CLINIC [id number] 18 [id number] NO FAULT -O/P [id number] 18 [id number] BLUE CROSS -RECURRING [id number] 18 [id number] [place] PPO 302/307 [id number] SP [id number] [employer]LLUS [place] [place] 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 [employer] [place] [id number] nutrition tech employed [id number] S [id number] SELF PAY EXCELLUS BLUE CROSS BLUE SHIELD HEA [id number] S [id number] EXCELLUS [employer] [place] [id number] S [id number] EXCELLUS BCBS B [id number] S [id number] [place] PPO 302/307 [id number] SP [id number] EXCELLUS BLUE CROSS BLUE SHIELD HEA [id number] S [id number] [place] [place] PPO 302/307 [id number] SP [id number] [employer] Health Maintenance Organization (HMO) [id number] Self [id number] Problems, Conditions, and Diagnoses Code Display Name Description Problem Type Effective Dates Data Source(s) R35.0 Frequency of micturition FREQUENCY OF MICTURITION Diag nosis 10/26/2020 11:01:00 AM [facility] N94.19 Other specified dyspareunia OTHER SPECIFIED DYSPAREUNI A Diagnosis 09/01/2020 08:01:00 AM [facility] N71.9 Inflammatory disease of uterus, unspecif ied INFLAMMATORY DISEASE OF UTERUS, UNSPECIFIED Diagnosis 09/01/2020 08:01:00 AM [facility]ital R10.2 Pelvic and perineal pain PELVIC AND PERINEAL PAIN Diag nosis 09/01/2020 08:01:00 AM [facility] R10.2 Pelvic and perineal pain PELVIC AND PERINEAL PAIN Diag nosis 07/30/2020 01:39:00 PM [facility] Z12.4 Encounter for screening for malignant ne oplasm of cervix ENCOUNTER FOR SCREENING FOR MALIGNANT NEOPLASM OF CERVIX Diagnosis 06/11/2020 04:09: 00 PM [facility] R19.7 Diarrhea, unspecified DIARRHEA, UNSPECIFIED Diagnosis 02/05/2020 10:31:00 AM [facility] Z87.440 Personal history of urinary (tract) infe ctions PERSONAL HISTORY OF URINARY (TRACT) INFECTIONS Diagnosis 02/04/2020 08:44:00 PM [facility] R19.7 Diarrhea, unspecified DIARRHEA, UNSPECIFIED Diagnosis 02/04/2020 08:44:00 PM [facility] R10.31 Right lower quadrant pain RIGHT LOWER QUADRANT PAIN Di agnosis 02/04/2020 08:44:00 PM [facility] N39.0 Urinary tract infection, site not specif ied URINARY TRACT INFECTION, SITE NOT SPECIFIED Diagnosis 01/21/2020 05:23:00 PM [facility] spital Surgeries/Procedures Procedure Description Date Indications Data Source(s) OFFICE OUTPATIENT VISIT 25 MINUTES 01/11/2021 12:00:00 AM [facility] ([facility], ) URNLS DIP STICK/TABLET REAGENT AUTO MICROSCOPY URINALYSIS AU TO W/SCOPE 10/26/2020 12:00:00 AM [facility] OFFICE OUTPATIENT NEW 30 MINUTES 09/30/2020 12:00:00 A M [facility] ([facility], ) COLLECTION VENOUS BLOOD VENIPUNCTURE ROUTINE VENIPUNCTURE 12:00:00 AM [facility] BLOOD COUNT COMPLETE AUTO&AUTO DIFRNTL WBC COUNT COMPLETE CB C W/AUTO DIFF WBC 09/01/2020 12:00:00 AM [facility] BASIC METABOLIC PANEL CALCIUM TOTAL METABOLIC PANEL TOTAL CA 09/01/2020 12:00:00 AM [facility] outpatient clinic visit for assessment and ma oh of a patient Hospital Outpatient Clinic Visit 07/30/2020 12:00:00 AM [facility] URNLS DIP STICK/TABLET RGNT NON-AUTO W/O MICRSCP URINALYSIS NONAUTO W/O SCOPE 07/30/2020 12:00:00 AM [facility] CYTP CERV/VAG AUTO THIN LAYER PREP MNL SCREEN CYTOPATH C/V T HIN LAYER 06/11/2020 12:00:00 AM [facility] Infusion, normal saline solution , 1000 cc 02/05/2020 12:00:[address] [facility] [address] ABDOMEN & PELVIS W/O CONTRAST MATERIAL CT ABD & PELVIS W/ O CONTRAST 02/04/2020 12:00:00 AM [facility] URNLS DIP STICK/TABLET RGNT AUTO W/O MICROSCOPY URINALYSIS A UTO W/O SCOPE 02/04/2020 12:00:00 AM [facility] COMPREHENSIVE METABOLIC PANEL COMPREHEN METABOLIC PANEL 06/2019 12:00:00 AM [facility] Injection, ondansetron hydrochloride, per 1 mg 020 12:00:00 AM [facility] THER PROPH/DX NJX IV PUSH SINGLE/1ST SBST/DRUG THER/PROPH/DI AG INJ IV PUSH 02/04/2020 12:00:00 AM [facility] IV INFUSION HYDRATION EACH ADDITIONAL HOUR HYDRATE IV INFUSI ON ADD-ON 02/04/2020 12:00:00 AM [facility] EMERGENCY DEPARTMENT VISIT HIGH/URGENT SEVERITY EMERGENCY DE PT VISIT 02/04/2020 12:00:00 AM [facility] SEDIMENTATION RATE RBC NON-AUTOMATED RBC SED RATE NONAUTOMAT ED 01/23/2020 12:00:00 AM [facility] Results ID Date Data Source [id number] 03/08/2021 10:00:00 AM [facility] Imaging Services Department Imaging Report [address] [place] [id number] %(RAD)RES..[email or web address].filter("line") Name: POONAMLORI Pineda : 1975 Age/Sex: 45F Ordering Provider: Sincere Red, Med Rec #: [id number] Reg Status: DEP REF Room #: Date of Service: 03/08/21 Report Number: [id number] cc:Joseugo Josefa Reason, DO Send Report To: [id number] XRP/XR Chest 2 View [Pa & Lat] [...] Date/Time: 03/08/21 0851 Transcribed Date/Time: 03/08/21 1000 Medical Office Asst: JANICE Name Value Range Interpretation Code Description Data Elissa rce(s) Supporting Document(s) ID Date Data Source [id number] 03/08/2021 09:20:00 AM [facility] PLEASE FAX [phone], ATTENTION CRYST AL Name Value Range Interpretation Code Description Data Elissa rce(s) Supporting Document(s) PT 9.1-10.8 Normal (applies to non-numeric results) [facility] INR Normal (applies to non-numeric results) [facility] The use of INR is restricted to patients on stable oral anticoagulant. Therapeutic Range: 2.0 - 3.0 High Risk Range: 2.5 - 3.5 ID Date Data Source [id number] 03/08/2021 09:12:00 AM [facility] PLEASE FAX [phone], ATTENTION CRYST AL Name Value Range Interpretation Code Description Data Elissa rce(s) Supporting Document(s) Sodium 139 mmol/L 136-145 Normal (applies to non-numeric resul ts) [facility] Potassium 3.5-5.1 Normal (applies to non-numeric resul ts) [facility] Chloride 104 mmol/L 98-107 Normal (applies to non-numeric resul ts) [facility] Carbon Dioxide CO2 21-32 Normal (applies to non-numer ic results) [facility] Anion Gap 5.0-16.0 Normal (applies to non-numeric resul ts) [facility] BUN 13 mg/dL 7-18 Normal (applies to non-numeric results) [facility] Creatinine,Serum 0.7-1.2 Normal (applies to non-numeric results) [facility] GFR >60 Normal (applies to non-numeric results) [facility] Glucose Level 95 mg/dL 60-99 Normal (applies to non-numeric re sults) [facility] Reference range is only applicable when patient is fasting Note the following drug interference: Sulfasalazine Sulfapyridine Can see falsely depressed Can see falsely elevated result with up to 17% results with up to 11% decrease in measurement increase in measurement Recommend patients be collected for this test prior to administration of either drug. Calcium 8.5-10.1 Normal (applies to non-numeric resul ts) [facility] Bilirubin,Total 0.1-1.9 Normal (applies to non-numeric results) [facility] SGOT(AST) 11 U/L 15-37 Below low normal [facility] patrick Note the following drug interference: Sulfasalazine Sulfapyridine Can see falsely depressed Can see falsely elevated result with up to 10% results with up to 10% decrease in measurement increase in measurement Recommend patients be collected for this test prior to administration of either drug. SGPT(ALT) 18 U/L 12-78 Normal (applies to non-numeric resul ts) [facility] Note the following drug interference: Sulfasalazine Sulfapyridine Can see falsely depressed Can see falsely elevated result with up to 29% results with up to 10% decrease in measurement increase in measurement Recommend patients be collected for this test prior to administration of either drug. Alkaline Phosphatase 47 U/L 38-126 Normal (applies to non-num jorge results) [facility] can increase Alkaline Phosp le vels up to 2 times the normal adult value. Normal values for children and adolescents are 2 to 3 times the normal adult value. Total Protein 6.0-8.2 Normal (applies to non-numeric re sults) [facility] Albumin Level 3.4-5.0 Normal (applies to non-numeric re sults) [facility] ID Date Data Source [id number] 03/08/2021 08:48:00 AM EDT [facility] PLEASE FAX [phone], ATTENTION CRYST AL Name Value Range Interpretation Code Description Data Elissa rce(s) Supporting Document(s) White Blood Count 3.5-10.5 Normal (applies to non-numeri c results) [facility] Red Blood Count 3.90-5.00 Below low normal [facility] Hemoglobin 12.0-15.5 Normal (applies to non-numeric resul ts) [facility] Hematocrit 34.9-44.5 Normal (applies to non-numeric resul ts) [facility] Mean Corpuscular Volume 81.2-95.1 Above high normal [facility] Mean Corpuscular Hgb 25.6-32.2 Above high normal [facility] Mean Corpuscular Hgb Conc 32.0-36.0 Normal (applies to no n-numeric results) [facility] Red Cell Distribution Width 11.9-15.5 Normal (appli es to non-numeric results) [facility] Platelet Count 257 x10 3/uL 150-450 Normal (applies to non-numeric results) [facility] Mean Platelet Volume 9.4-12.4 Normal (applies to non-num jorge results) [facility] Neutrophils% (Auto) 31.0-71.0 Normal (applies to non-nume ezequiel results) [facility] Lymphocytes% (Auto) 20.0-55.0 Normal (applies to non-nume ezequiel results) [facility] Monocytes% (Auto) 4.0-12.0 Normal (applies to non-numeri c results) [facility] Eosinophils% (Auto) 1.0-8.0 Normal (applies to non-nume ezequiel results) [facility] Basophils% (Auto) 0.0-2.0 Normal (applies to non-numeri c results) [facility] Immature Granulocytes% (Auto) 0.0-2.0 Normal (elly lies to non-numeric results) [facility] Neutrophils# (Auto) 1.50-6.20 Normal (applies to non-nume ezequiel results) [facility] Lymphocytes# (Auto) 1.20-4.00 Normal (applies to non-nume ezequiel results) [facility] Monocytes# (Auto) 0.00-0.90 Normal (applies to non-numeri c results) [facility] Eosinophils# (Auto) 0.00-0.50 Normal (applies to non-nume ezequiel results) [facility] Basophils# (Auto) 0.00-0.20 Normal (applies to non-numeri c results) [facility] Immature Granulocytes# (Auto) 0.00-7.00 No rmal (applies to non-numeric results) [facility] ID Date Data Source [id number] 02/17/2021 11:01:00 AM EDT [facility] Name Value Range Interpretation Code Description Data Elissa rce(s) Supporting Document(s) Respiratory specimen severe acute respir atory syndrome coronavirus 2 (SARS-CoV-2) RNA Negative (qualifier value) [facility] This lab was ordered by [facility] anitra and reported by . ID Date Data Source [id number] 02/17/2021 11:28:00 AM EDT [facility] First test? UNKNOWNEmployed in health[facility] re? UNKNOWNSymptomatic per CDC? UNKNOWNHospitalized? UNKNOWNICU? UNKNOWNResident in congregated care? ex retirement, ARC UNKNOWN? UNKNOWN Name Value Range Interpretation Code Description Data Elissa rce(s) Supporting Document(s) SARS-CoV-2 RNA Negative Normal (applies to non-numeric r esults) [facility] Negative results should be treated [...] Certificate of Accreditation. Factsheets for healthcare providers: https://www.fda.gov/media/140502/download Factsheets for patients: https://www.fda.gov/media/512832/download The ID NOW Instrument is a rapid molecular in vitro diagnostic test utilizing an isothermal nucleic acid amplification technology intended for the qualitative detection of nucleic acid from the SARS-CoV-2 viral RNA. THIS IS A STATE REPORTABLE COMMUNICABLE DISEASE. Manual entry verified by Maurisio Castaneda 02/17/21 1128 ID Date Data Source [id number] 01/20/2021 02:25:00 PM EDT [facility] Name Value Range Interpretation Code Description Data Elissa rce(s) Supporting Document(s) Respiratory specimen severe acute respir atory syndrome coronavirus 2 (SARS-CoV-2) RNA Negative (qualifier value) [facility] This lab was ordered by [facility] and reported by . ID Date Data Source [id number] 01/21/2021 11:44:00 AM EDT [facility] First test? UNKNOWNEmployed in health[facility] re? UNKNOWNSymptomatic per CDC? UNKNOWNHospitalized? UNKNOWNICU? UNKNOWNResident in congregated care? ex retirement, ARC UNKNOWN Name Value Range Interpretation Code Description Data Elissa rce(s) Supporting Document(s) SARS-CoV-2 RNA Negative Normal (applies to non-numeric r esults) [facility] Negative results should be treated [...] Certificate of Accreditation. Factsheets for healthcare providers: https://www.fda.gov/media/959124/download Factsheets for patients: https://www.fda.gov/media/657970/download The ID NOW Instrument is a rapid molecular in vitro diagnostic test utilizing an isothermal nucleic acid amplification technology intended for the qualitative detection of nucleic acid from the SARS-CoV-2 viral RNA. THIS IS A STATE REPORTABLE COMMUNICABLE DISEASE. Manual entry verified by Mishel Moreira 01/20/21 1506 ID Date Data Source [id number] 12/11/2020 12:38:[address] [facility] Name Value Range Interpretation Code Description Data Elissa rce(s) Supporting Document(s) Progress Note [facility] RYXWEx5fGoNOXxMy57/PTFcvXDMbc4RdVKogRJn5SNkzGSJhR9QjABP0aQ4tWZQ9MRsISvTaCzAeZeN8 [facility] [file] [id number]= ID Date Data Source [id number] 12/11/2020 12:38:04 PM EDT [facility] Name Value Range Interpretation Code Description Data Elissa rce(s) Supporting Document(s) Progress Note [facility] MMXRMh7vHnMLVkYn62/KBYoaYMOgm6EcYZvxPHx7SBmfZEXbI3SqNGL8iE6lYGK9KWqQIqWgEnXzMfF0 lbm HfSyeGZzDgCKZmFkpLBpMhDCekYflntKEmDK6YbTS0SNXrJ42mARNyFXKuO2EsRKA7CyW+Eu8XVCTyvS QqGF8BAyzG8XthSlcBBx7+1a7Fxx4pOgXC2l/m7el9FswNtWXOOiDt1jU+GHswvgWbNYYs++skCez9ud AcXBWopo4EI9Pj0gi3nbbmiwvDLNH/32M8KlgCXTe/ 038Kh0M/Sxv1S2SdqYUzl93wSPAVfqFlzBzFa2d8PJN/XkvjBiWCJd8ztgQsvNItroaXfAxKba/5eJy/ SzpOo3uO+Prm+NiWuKM2xfeNT16AE/2Ctfjf46utSENNYyr35phhPtTnTPI5St1VNbScn4SWQVC7Tk7C UI4pauxp9eOcOBZGThCeJykGQYzRKRjRnL/AWl3WsK Fn88BERvdmtfJel6h9dXgJevooOnsIdpJbnQ1XetYk8vUlry2iNWLO59SLkHUiQuCL5D8rDEEQJE3LfW supZKaoT8g5VwdMi9x+AH5aqDVh7vlE+LK9p7m7UTtcmno+e/fFXCxPTVZDtyjlvlMvkb9J6jZKA46Zl /5quueVUvxcSySqqao4dVtFEvNtkywGQEfTkyalgIc [file] i5YhbgB7tqRoSWouDPN0KJ0YUXWCT2VAZz== ID Date Data Source [id number] 10/26/2020 06:31:38 PM EDT [facility] Name Value Range Interpretation Code Description Data Elissa rce(s) Supporting Document(s) Progress Note [facility] JKEEOo8mCnVCWoVj89/TBKmnUYZda2GzTQwcZOj0OYxnIWYkZ9RvIQS1dX5iPGO5RTcYDeCbZsIoZOM1 lbm [file] ICAgICAgICAgICAgICAgICAgICAgICAgICAgICAgICAgICAgICAgICAgICAgICAgICAgICAgICAgICAg LVBtVHOpTGJzLPBpJQRxGSBgVWJsJAAsMAGfSKAkIOPuZO1PBWByUMEuDAFbPSQwMAAwCJDwAPWhZBTl ICAgICAgICAgICAgICAgICAgICAgICAgICAgICAgIC GpSCMyDMLyENKpSKGsXKSaYDOvCKDrJFUnVCOvMIPiIBInMOAoKCQmETFqQD5ZVOHdYRNwPXSgKVPvBN AgICAgICAgICAgICAgICAgICAgICAgICAgICAgICAgICAgICAgICAgICAgICAgICAgICAgICAgICAgIC AcVXAiUTArTHOcVLEwVHOhFYFwHKOtGCDeCF1VVUFu ICAgICAgICAgICAgICAgICAgICAgICAgICAgICAgICAgICAgICAgICAgICAgICAgICAgICAgICAgICAg YIYgWTYhIBWiWLQgROBsWIJgYXAhUWOdQLDeCNWkFIPiMIMuEN5ZKOHaNRQjIVBwBXUpFNMfLGGtIVGn ICAgICAgICAgICAgICAgICAgICAgICAgICAgICAgIC JxPPAeQTKkVZSkGEDzNOUyUGTrEYOgUIOgBKKcVWZeYLNdMNEmDMFgMLAyWWEqKM1XILRhXKCdFGLoAT AgICAgICAgICAgICAgICAgICAgICAgICAgICAgICAgICAgICAgICAgICAgICAgICAgICAgICAgICAgIC RzQGKuPGJqKABdEICaGIDvVSZoWEBtAMDaYJIwVG7I ICAgICAgICAgICAgICAgICAgICAgICAgICAgICAgICAgICAgICAgICAgICAgICAgICAgICAgICAgICAg GJQsLKPlOEAiFPPqFIIdSXUtYXFcOHIhORIdVACrFMDeYYMiHFOeSP3QYUCuSRPuGGYkNIBhTWEiFMKm ICAgICAgICAgICAgICAgICAgICAgICAgICAgICAgIC NgQSSoMLBpARZiTTCtODUaJDLvTLBfFMVjUSCkPGGqNEDkMPUcMNMwDXIiDCTlOHFuUZ6LBNKaFZEkOM AgICAgICAgICAgICAgICAgICAgICAgICAgICAgICAgICAgICAgICAgICAgICAgICAgICAgICAgICAgIC AgICAgICAgICAgICAgICAgICAgICAgICAgICAgICAg VX4DMCPgUAFnBRNuEYDcGAKjVBQuPCEyQFGnLNUwCOHhXWUmUJMwKEUnZFPtTZZgXCGmLIXpPUOmPDMm ODSxCOKlEUVqOETdTOPaMBFdLILfUPXzSQWlSMVlPVGvBBZwGYCbKQBrKT6YDI08fIMop8J9BHWqIU0j dyc/Py0HAMaxsrZmaPNhMT8WSxEcPJ5cgh4VOpXwWU 9tjt2DTQzIDuTaR7Y0gOGeKHJyURQTXeHbQ36fALhbIz39HRrcVKZqHiQcFDu9Ry1BMlUcQ1fmWYNsVd R1TSGlBjJcOXgrZF9Gv6NkdCWaTSm+El7VJH6dz6VsCAgeApEkCQ3sav3VLMsDRaLkV5LqurG5ZPHhCN YqCk4WYOZkNTPrgUWoIrXcREGWIfJzB9UhfP02OSOB Cj4+FAzbzzSvVauNRiEpGACcl3McVNi6QZ8SUAMmPLi8xOHaHBGkP4Csi7ZjRv87RNSfMnbcIBCelERo JUJMMAC8HUvvMRWdGBGbVA5rZI7sJJEjBSZ4DrY4EEIZUN6BAKYpXSGboXAiLRKlUMCAQV0UYRwjRKG4 BTLjthJdfPTjAWdvRJ1WFQIrniBaLzXsQKYNXIv+Pg 5KPB6xc2DiBCboKUXdJG1fvx1CJAtERaHkA9H6cORcL8L8ICkyNl1LXBVuEXAvHoSnPVDAOAzcZJ2JUR 7ugtA4GY7OyMXnHWQqGXVumLYuFXb1W92hlLIjKVadAY4BSPJ+Karen+Ul6RKJLvOLBcIBFcOaQdJYMUOd SaC2ErQ0CPf2MyF4JcCC88qMjhjbDiWWxqEA2JBB1j XAYkWBOTNH1XlCJkcB8tmbFkPfLhBXFQYnMnZ80zbJDjWPYwNSFrVOZxEo0UBNCjU9KsjlWcvFzjkpMc MZKtOHTVIB1LGMbldxGbpOHfsGkxEI19aTdqGO3YYr6DQfEsGE4kgx8XdGMxWq8BCUAzNA1BOFYsFSKl WPOuVZP1ULZeUiYnXIgzYDKvKEObJRO8EUZeQCAhSS 7IRuFpIFFqSMvuWLtxEZMoFFWdhq9ZEGUzXASoEAv2YIXjIEVkNXLkHUcrMLHcWDUxEYT5UQKwXJVhJJ 4JUzGwJDBiSYB4CMqbNMMoAYQbjw7FDSMiKEGeQcO6MZOgXSZiILFhZWjmSIRuSOKoNaVtSRQyPMEbNA 6HCrRzQWRkKOQ8ADPsDZUpLZDquv4XRUEiVPAhIIAc XwWpTFNbVYDxOKfrHYVySUC6YYb2SKDnUTBuOC0CDySyQCPgXDAzDTIdTLYjRTWnrw6NMFUxUAIlUER1 XpCpDWCgXSKcBFoeUCIgKLM0HjlcIZWgOKYkYM7VXuMqAFNeSQxwYJKnQUQyWBNvvo9NNTOrOXTwZaMy ChBkQSOtZRZkGRghLYLmQXW4SQYlHOLpALAhNZ8ZQn DmUWXnLXx9TZvdETHjDUHwmg8UJAUxJRAbRWG3XlZuYCGiMGKnQAcrFJMzCAM8HPZ0DGJxAZRuCM4QEn VsLMNfADn7WEJsYZBvMJIbau5JVYReUISkMRYtZDTpRTBdHALtTSwtORAjNIDaYYR8AJSwUXHeTC6OVc OaELEkNlD1BgYkCWRhSAVlcs4UXWPhNPDaMPN1NLVz DFEuQQLzNKf3hvVmeBQlCZz5SV2OR8HiqnSvLhZOOr8Ir755BBG0MTAwCm9HU1ouId2jLTKdCEKUOg7C FUe2KYfbWOPjZJO1DxI3PqdiQOX0I6RuUoGkQPFpXVydGAF+LNm8YAA4XkM9YkXrDyesBEB4MSZ3WEP9 EmQfTKQtNTNfGC6xXCRDOl4+DBwfsMMqiFisUVXEPjQcYzVmLVymYOAXTj4U ID Date Data Source [id number] 10/27/2020 12:33:00 PM EDT [facility] Procedure Performed By: [facility] [address] [place] [address] Director: Monica Hurley MD Mixed mansoor: Mixed mansoor, probable contamination. Name Value Range Interpretation Code Description Data [facility] rce(s) Supporting Document(s) ID Date Data Source [id number] 10/26/2020 12:03:00 PM EDT [facility] Name Value Range Interpretation Code Description Data [facility] rce(s) Supporting Document(s) Color,Urine Colorl-Dk Y Normal (applies to non-numeric res ults) [facility] Clarity,Urine Clear Normal (applies to non-numeric re sults) [facility] Specific [place],Urine 1.005-1.030 Normal (applies to non- numeric results) [facility] pH,Urine 5.0-8.0 Normal (applies to non-numeric resul ts) [facility] Protein,Urine Negative Normal (applies to non-numeric re sults) [facility] Glucose,Urine Negative Normal (applies to non-numeric re sults) [facility] Ketones,Urine Negative Normal (applies to non-numeric re sults) [facility] Blood,Urine Negative [facility] Bilirubin,Urine Negative Normal (applies to non-numeric results) [facility] Urobilinogen,Urine 0.2-1.0 Normal (applies to non-numer ic results) [facility] Leukocyte Esterase,Urine Negative Normal (applies to non -numeric results) [facility] Nitrite,Urine Negative Normal (applies to non-numeric re sults) [facility] RBC,Urine None Seen [facility] WBC,Urine None Seen [facility] Casts,Urine None Seen Normal (applies to non-numeric resu lts) [facility] Squamous Cells,Urine None Seen [facility] Amorphous Sediment,Urine None Seen [facility] Bacteria,Urine None Seen [facility] ital Mucus,Urine None Seen [facility] l ID Date Data Source [id number] 10/27/2020 12:15:00 PM EDT [facility] Procedure Performed By: [facility] [address] [place] [address] Director: Monica Hurley MD Name Value Range Interpretation Code Description Data Elissa rce(s) Supporting Document(s) Urine Culture Normal (applies to non-numeric re sults) [facility] ID Date Data Source [id number] 09/21/2020 03:33:[address] [facility] Name Value Range Interpretation Code Description Data Elissa rce(s) Supporting Document(s) Progress Note [facility] RHZNEt7mPwNUSxKl97/STWphSAGnz6UeKJjxKUl6IUoxSHCjW2NmRCC4dT5qYKL0KYeGZuXbQeIhBKD9 lbm [file] AgICAgICAgICAgICAgICAgICAgICAgICAgICAgICAgICAgICAgICAgICAgICAgICAgICAgICAgICAgIC AgICAgICAgICAgICAgICAgICAgICAgICAgICAgICAg FA0NCMCvNREcDYFmFKVeWUYuGIJsWTDrMMLyLUSaVOUiFHEaGUJmATZgBSQpNUJoWWLhDRObWRRxIXPa VCNkQGHpSTAlPHEgMIEqYMOuIWPeYVVbXDOxRXEpJCJbMBIyNCHrBAHzBF6TSETnSPPpXFXcKNDuGNCb ICAgICAgICAgICAgICAgICAgICAgICAgICAgICAgIC CeOFDgWDWuDTVbEGDbJLIdXTQwEKNoCRCmWQGkXNFhXKFhISTrAUSiJFFyVEUwYWYkDDJeKC6BFNZxIE AgICAgICAgICAgICAgICAgICAgICAgICAgICAgICAgICAgICAgICAgICAgICAgICAgICAgICAgICAgIC AgICAgICAgICAgICAgICAgICAgICAgICAgICAgICAg APAhKJ3GIRJwWRDpNPHdKBKfKGKnMRRbEDIoMOHrGSDdICXsUUEzINIpCXNyJPIkWVDeUSIeKXXbCUTb YJMsCXNwUNInJLMmIYNqBEZoWKNlHSDyPJStJDAbAOBfOTMhULQaTZAuUDIoFQ4IKTRlRYMrBSLkGZHu ICAgICAgICAgICAgICAgICAgICAgICAgICAgICAgIC AcWRXiEDRuRVPgLJCxFQYmGWRvJSHuRIZxDLAoYNCjCRFoRGLrQNOxTCJaQLOhSNQhPJDqAYMnPE1UFY AgICAgICAgICAgICAgICAgICAgICAgICAgICAgICAgICAgICAgICAgICAgICAgICAgICAgICAgICAgIC AgICAgICAgICAgICAgICAgICAgICAgICAgICAgICAg ADOmXMXzAM6WUEMpSZIoLBPxWUTzGUBtNIYhLNDtOVWjMOZkLCNgZVXtNNYmQIZnXWVjNTArRHYbCLXz TSVyVMYxPSDmLDZjHGDkFFGyTRBbDZLrNCYbYOHqELCrCJSbMUMjYPEbTOLrHTNtTB0KULGsDYEbCSCr ICAgICAgICAgICAgICAgICAgICAgICAgICAgICAgIC AgICAgICAgICAgICAgICAgICAgICAgICAgICAgICAgICAgICAgICAgICAgICAgICAgICAgICAgICAgIA 0KICAgICAgICAgICAgICAgICAgICAgICAgICAgICAgICAgICAgICAgICAgICAgICAgICAgICAgICAgIC AgICAgICAgICAgICAgICAgICAgICAgICAgICAgICAg PZRzLXZhXEPcME2IBA35mJKuk0Z9XJXhQQ6vtya/Vb7TNKjklbTxiGPfNR9CRpJgCM6nmj4YNoTcJX3g eh5OSYjKHlVmE6M3lGCuDCIbEQWORcCxX65vFAdpIc52JNfbMEOiNvMpAIb8Pk6VQwDcV6swNPTrRwB3 HKFbVlDaDSirML4Gq5DxoTPxHIj+Yg1UKQ0xx6YdCH mnRhJxWV0lcy9XRIcTVlIuP7AycqH1TOSyPQVjJz4GSDRmYZEepAOkEfEuNTUPDuSzT1DawF57AKWJKl 4+IHqilqMoNiqLQtSbJAOru8JxLGd8IN6MAPWfDNb3hMIiQTUxS3Xri6CyEm61BVIpDbsjXKBhaFPyDA VBWPJ9ESqyKXUeNOJvQL6wHJ8mJRClWTSgGtEwASGJ UX2PBLOoNOMkzETgCIHyDRBQZG6DTTsoRUS1PSMyriUdmZCbIUyzTH8QPJPoczKfIbJvVVUEGLn+Pg0K MY1uv7CeFGjePFIjVD2cqq5SVEbLWtDrG5C8sXIeB7O9AUvhEg1TSGKaQUUsFdIcTHRPRPalDO8JFH3d iuC3RM8PmWLdUEPwWPCbuJVqCQk6A25cgHWzTZgtMK 0KICA+Karen+Ak5REUJoKTNqHVLsVjHbLLHUKgVoH1DuW2WVq0PtR2HzTB83cGdvncQfBAmeJD7IWM7zIN NtFHLGIO4SjYVcmT1dvmBuHmDmLFXCZbUeS44eyGBaOTUrPWNiKXEbDw9OGBWhQ9FytuPuyEiumeBfFO TqMGHCGE3LMUdfqoHdjBQhcCnsYO24rZfyUX2EYj6M AeYqQO5vuz1KwJMvXr3FXQEeEH1FQHCqRKErPERnVSP4MKEtVpRhVRydYNKjAGWoBFA8PJYtTCQgEP0T UoJqOFNgOEe9DiCyCPHeTLNayu8QBNPbINAuUMZ4QVMzIHCmWNNdFTomYNPySHToBTL1NZOjCJXlRL4G SkUxAEWiJCVwCYRrKRMxDKLexj4FMQWsPCOsYoJ2XD XzJJPnEPOoMCngAUVjMUKaCyI6KZVzFNMhIN0ALoGrVOCyICT8TEJjXMRqKHIkwb8KQQDpMEViHzKkOE EoWDKwXMZnERzzEUNuVAO5QSm6TSHgNSNqXP7DZtKlRVWkVEU2CYVpMHQsESYsmz2IZYUqSZFqDXp5Gl PoEEUtYMBxYOjlRHQtRUU4Pgn4AZAlLKIwTV9XTnQj BRAtTTY5TDzjPKUiPAObxn9CRYHmMEGjKfocDzKtRZXeHEQgJUndJCIjSJR0ATU8ORZzOVJzCE8FNxHi YMBuPPftNEIkSHCnPQQvuz6POABlCTJlNTY9GlCiVUYdBMUgTAjhLAGeRFR7SYZ2AZMgYDLeSX7OSnCg IIFsESx2VRjpOCJtNLTgbv7GVGPlFQMyWXJmFFHqCN XmFNLhMIwyHMYfVPAaMPSaPCUrPEIvBY6WEeOtRUUlPqV8MwXqYYEsFXGhfb2QWTFaEVYvIUM3AvGkZV FhPGTfWTl3viWswWWxRGt4KW3TX8FynqPyHxTAOk1Pd541SQZ0XBIrWl9JZ8kyIc7yVESqJOIFOz8YUU s6IMAlCnJwUpc8ZaFlMDRrLpB4KIGrFaO3JytcJcvw NzU+XLg9QMQwZDEiRGMzIWA5UEUeXbMfWZHtHNVqDFHkQBY3UY4aLHOELh1+DQpzdGFydHhyZWYNCjIw DKR3JUjbRIYQWr4D ID Date Data Source [id number] 09/17/2020 12:17:20 PM EDT [facility] Name Value Range Interpretation Code Description Data Elissa rce(s) Supporting Document(s) Progress Note [facility] JKPTMz4sQlBICuXq15/GMUcxZBBqf4BcMPnxUQx1HCltFCTwL1VmRLI5yJ8hJCJ2HVjQVmKbYtTqSHB8 lbm [file] R7DTm8K6BhRfSmUAQjQQ7jSYGUCj0+WVsonFFncKhtIXCTMiQeElb2FBwpVBHPFl9Z ID Date Data Source [id number] 09/17/2020 08:26:00 AM EDT [facility] [id number] [place], [place] [address] NAME: BRENDA LEVINTE OF : 1975REPORT: OPERATIONPATIENT NUMBER: [id number] STATUS: SDMEDICAL RECORD NUMBER: [id number] ADMISSION: 09/16/2020ATE OF DISCHARGE:ROOM: 01DATE OF [...] draped in the usual sterile manner. A Rector retractor was placed for exposure. The anterior [...] Brooke, MDDictated: 09/16/2020 18:19DT: 09/16/2020 18:27Job #: [id number]: [facility] computer generated reports are not confirmed orauthenticated unless they are signed by the providerElectronically Authenticated and Edited by:ARTUR BROOKE MD On 09/17/2020 08:26 AM EDT Name Value Range Interpretation Code Description Data Elissa rce(s) Supporting Document(s) ID Date Data Source [id number] 09/16/2020 01:00:09 PM EDT [facility] [place] SPEC EXP DATE 09/19/2020ATI ENT ABO/Rh A POSITIVEANTIBODY SCREEN NEGATIVETESTING SITE PERFORMED AT [address] [facility] [address] Name Value Range Interpretation Code Description Data Elissa rce(s) Supporting Document(s) TYPE AND SCREEN [facility] f [facility] ANTIBODY SCREEN NEGATIVE ID Date Data Source [id number] 09/16/2020 11:54:08 AM EDT [facility] [place] Name Value Range Interpretation Code Description Data Elissa rce(s) Supporting Document(s) HEMOGLOBIN A1C @ 5.2 % (4.0-6.0) [facility] [place] [facility] [place] Performed using Siemens Marion immunoassa y.Care must be taken when interpreting KxF3qrklijec in patients with a hemoglobin variantor decreased erythrocyte lifespan. Values 5.7 - 6.4% suggest prediabetes.Values >=6.5% are diagnostic for diabetes.REFERENCE: DIABETES CARE 2018: 41(S13-S27).PERFORMED AT [facility] [address] EST AVERAGE GLUCOSE 103 mg/dL [facility] [place] [facility] [place] ID Date Data Source [id number] 09/16/2020 11:07:41 AM EDT [facility] [place] [facility] [place] Name Value Range Interpretation Code Description Data Elissa rce(s) Supporting Document(s) POC GLUCOSE 82 mg/dL (70-99) [facility] [place] [facility] Y PERFORMED BY CLINICAL STAFF ID Date Data Source [id number] 09/18/2020 05:26:49 PM EDT [place], [place] [address]Tel# SURGICAL PATHOLOGY REPORTPatient Name:LORI LEVIN:1975Received:09/17/2020ccession #:[id number](s) [...] By Estephania Hinds M.D. jmdPathology Associates of PickfordLilliana[address] [place] [id number] component performed at [facility], Histopathology, [address] [place] [address], [phone].Reported at [facility], [address] [place] [address], [phone].This report may include immunohistochemical or in-situ hybridizationresults. Testing was developed and the performance characteristicsdetermined by [facility], as required byCLIA '88. The FDA has determined that approval for specific use is notnecessary for clinical use. The quality of Hematoxylin and Eosin stainsand as applicable, for all immunohistochemical and/or special stains,including positive and negative controls, were reviewed and consideredappropriate.ICD codes: N80.0 N80.9CPT4 codes: A: 68400P Name Value Range Interpretation Code Description Data Elissa rce(s) Supporting Document(s) ID Date Data Source [id number] 09/15/2020 07:45:[address] [facility] Name Value Range Interpretation Code Description Data Elissa rce(s) Supporting Document(s) Progress Note [facility] WZFBPr2mNfLNXzEg07/ERAflCUCct1IlHDcvIXq3EVodTODdP5WrWHQ7cL0kNXP3RRyOFyTtVqWvQPHs lbm [file] ICAgICAgICAgICAgICAgICAgICAgICAgICAgICAgIC JhVVZaRYQtGLNpJTGoYWSlUO8BDKTrXJReXVPyOFYlWZTaQZUlKRDhNBRiMAUnDENiJLGmJDQeALMpFJ AgICAgICAgICAgICAgICAgICAgICAgICAgICAgICAgICAgICAgICAgICAgICAgICAgICAgICAgICAgIA 0KICAgICAgICAgICAgICAgICAgICAgICAgICAgICAg ICAgICAgICAgICAgICAgICAgICAgICAgICAgICAgICAgICAgICAgICAgICAgICAgICAgICAgICAgICAg TXNwHKShKBJwQW3OQGFrVHDeBYHtVOXgEINfLZCwCXReDVNtZIPiBDEzXJSwEEVbXMRmBKIfMDJdGNVw ICAgICAgICAgICAgICAgICAgICAgICAgICAgICAgIC BxSKDsWOIlVGQeZREsGLCtQKKmZX1PCSHgFYIrFKWhFBNpIGKrMDTmBFRhUQEfNBOtIJXtFUXyLFUkTV AgICAgICAgICAgICAgICAgICAgICAgICAgICAgICAgICAgICAgICAgICAgICAgICAgICAgICAgICAgIC NrQT8RWYSbTPGdLUEhAIDgYBImDESuUFXlSCBbKGWg ICAgICAgICAgICAgICAgICAgICAgICAgICAgICAgICAgICAgICAgICAgICAgICAgICAgICAgICAgICAg AMTdSIYyPDNmZEZxEM3ETPFvIFUfZHYnJYNtPJXyJUUdNITlXYWrYJUoTPSwVYZkMSKxVMXqEWKgACEr ICAgICAgICAgICAgICAgICAgICAgICAgICAgICAgIC EfCYMjYIVaQLZfQIUxUABpDXAcWGKnGX1BMGBgRUAyZECsZNEpLBVtILHpCKMnDYNsWHTmZMUoCLTwLE AgICAgICAgICAgICAgICAgICAgICAgICAgICAgICAgICAgICAgICAgICAgICAgICAgICAgICAgICAgIC GnSXDeEN3ZCBJcKSZmMEJrQZShUQDdQAAaIOUjFOKz ICAgICAgICAgICAgICAgICAgICAgICAgICAgICAgICAgICAgICAgICAgICAgICAgICAgICAgICAgICAg DNMqFLNaDCHnPCHcWFIdUK9MODAlSWOkOREzBEZvPRXcSLBcUEBeCKZsPWBrNIAbOYFpJLBnKJNeMCEe ICAgICAgICAgICAgICAgICAgICAgICAgICAgICAgIC WgONCnEXErUATyTAJiRUXeEMGnGWWhFPMoWB4YVB94tZOnb1W8EMUmXK9gxxz/Wb9WJAalawDsoGJjXT 1CVyTpKP2jec4LUuOsAP8zqp1URLhLTjIsG8P5pQNhNLIvAIDUVhTzO89dSYwoDo97IDyrFXUqLmVnHC b9Sa9VPqWjN4prMFFsVyR0MUOhFfX8QKCvBbQxENyw KF2Rc6RpvIHkLFh+Wg9KZK9ly6UqXUehCDQwHZ7nnq5NEVtMDzCkD5ZuefG0EXEdFEVgKe6RBPVeMZZq dHMgGuUzXCVXUgDxZ5DokU79FEEXFl6+CDvnuoOdVegQMdMsRQOhw5VpQFw6VP9VUURbHYw8xSJrKFKf I2Zbl4AeAn19PIDyJflzHRDztJXuFBJGJPK8AUzvGB DwDLQzUk5zGM3qPWPyCDQ4ByGcHHTLWS3PVRGqMCPfjKHoUBLhFHXDAD0UMOtgWZS9AMGaopEwsOXoQF luVH2YMPHtdrEkEtYnFOKSMIt+Rh9HCB9ss4NvUFheNkDsBQ5ldg5BPXyYBgLvM5F1yQRuI7W2DXhrCc 7INBIvWKVgYZenXQKHSJblWR9QDM7edpO2OG5GeWEp QREeXVQpbWUdOQs6G92bqDQzJRgdUA1PPWG+Karen+Wj8CVDEuBNBmDQIoWeIwCJNKVpMoE8MdV7TTc5Ea H0AbMG96lRkahcLcZQodHX9WNG9jLOVeGGSFKP0GuPPnvX0gehDjJKFfMQSNEnBeG71lbGHrZJCyTURd CBNwLz6IREUaB2TjtgWfrDhbfxMkTZXcYOQQQN0RYD ahqlNhdMLqsGyzRH26bSqiVL8HDz7HLqFpVJ5thr2PyPVzFw7IKVZnDT9PWAXtWKEnDUFpROJ4ULBfRr WiXGcnKIMhNGCxFOS0QMQtGTCzQT6JWhSpLLWmAvDuJfzpUKKxSRIzjw7EIIXtBAXcGcl6FaKgTXAwZE TrDNtqPVUgKSCdUUM3NZHvMGWwJA1QPgJdQEKaOZMt EvQjGUNpHKHpgx5WGJMrGXGyFmS3UBCsYCQmFPSzJIquXXGlPYZ8EKL9TZSfDNSlET9MLtVpQFHjSCXu PvMhOVJqFOZwjj8YIDUrUGNrOcK0YLFkLITvSUKnMIidBXHhKSS5QUq2WYDqYEPzPP5ZFqLwRGRmITc4 JlJnSQPjHHYylt9HNOCaNZFnLXJlCHFhQFEzOPVePH fiPWIaGPW1EBQ7UPPsEWOaCI4QRpHvEVMbMMhlXDWiMFTrBLUcqy4MMTEtKOArDSj2GoJqMFIjXCYsET jdEJJkOVAiLji5DEFnORIuKS9LZlAcYLCuUvW4VFUpQYRbHHBoxd2VHTXaCFScYMJ9AVEbOKApAPJaCQ qsRQHgVDRzUwB3WLRyFQSeIB4YKjOzLOUcTxE5VRPv TECtQKFotc8HDDUnRDTcQyM6ZKPfINQzWUOoCVsmXOXnGQTdNIDrEIWuBOPkOC9XAgHaOTHyZwWfWpnh ASEgZIUqfe2OwTPafMvqab4KGZtLOp3XtSonGEC7SZfzQb8uhUBsTtWcJYOFAn4VbaGmMTXwJATYUJmn IQAxFPcePKFnAnYsYFLbU0OpYCJ8KNW3VmQ9EPN1CQ Y1MmOgGnI2AZKzWEIqZkCuRLDfEQX0ShB6XHCfNXJ8MNMyUPNmHWE+XJ6rQNn+Rz7Je0EwpgJ5slBjDR ujBdKxLd3GEBHEO0IRZh== ID Date Data Source [id number] 09/11/2020 07:37:00 PM EDT [facility] Name Value Range Interpretation Code Description Data Elissa rce(s) Supporting Document(s) SARS-CoV-2 RNA INHOUSE Negative Normal (applies to non-n umeric results) [facility] THIS IS A [facility] REPORTABLE COMMUNICABLE DISEASE. Testing was performed using the [employer] COVID-19 MDx Assay. This test has been [...] be found at the following links: Providers: https://www.fda.gov/media/294835/download Patients : https://www.fda.gov/media/563040/download THIS IS A [facility] REPORTABLE COMMUNICABLE DISEASE Negative results do not preclude SARS-CoV-2 infection and should not be used as the sole basis for patient management decisions. Negative results must be combined with clinical observations,patient history, and epidemiological information. ID Date Data Source [id number] 09/11/2020 08:00:00 AM EDT [facility] Name Value Range Interpretation Code Description Data Elissa rce(s) Supporting Document(s) Respiratory specimen severe acute respir atory syndrome coronavirus 2 (SARS-CoV-2) RNA Negative (qualifier value) [facility] This lab was ordered by [facility] and reported by . ID Date Data Source [id number] 09/01/2020 08:48:00 AM EDT [facility] Name Value Range Interpretation Code Description Data Elissa rce(s) Supporting Document(s) Sodium 139 mmol/L 136-145 Normal (applies to non-numeric resul ts) [facility] Potassium 3.5-5.1 Normal (applies to non-numeric resul ts) [facility] Chloride 102 mmol/L 98-107 Normal (applies to non-numeric resul ts) [facility] Carbon Dioxide CO2 21-32 Normal (applies to non-numer ic results) [facility] Anion Gap 5.0-16.0 Normal (applies to non-numeric resul ts) [facility] BUN 13 mg/dL 7-18 Normal (applies to non-numeric results) [facility] Creatinine,Serum 0.7-1.2 Normal (applies to non-numeric results) [facility] GFR >60 Normal (applies to non-numeric results) [facility] Glucose Level 100 mg/dL 60-99 Above high normal [facility] Reference range is only applicable when patient is fasting Note the following drug interference: Sulfasalazine Sulfapyridine Can see falsely depressed Can see falsely elevated result with up to 17% results with up to 11% decrease in measurement increase in measurement Recommend patients be collected for this test prior to administration of either drug. Calcium 8.5-10.1 Below low normal [facility] spital ID Date Data Source [id number] 09/01/2020 08:46:00 AM EDT [facility] Name Value Range Interpretation Code Description Data Elissa rce(s) Supporting Document(s) White Blood Count 3.5-10.5 Normal (applies to non-numeri c results) [facility] Red Blood Count 3.90-5.00 Normal (applies to non-numeric results) [facility] Hemoglobin 12.0-15.5 Normal (applies to non-numeric resul ts) [facility] Hematocrit 34.9-44.5 Normal (applies to non-numeric resul ts) [facility] Mean Corpuscular Volume 81.2-95.1 Above high normal [facility] Mean Corpuscular Hgb 25.6-32.2 Above high normal [facility] Mean Corpuscular Hgb Conc 32.0-36.0 Normal (applies to no n-numeric results) [facility] Red Cell Distribution Width 11.9-15.5 Normal (appli es to non-numeric results) [facility] Platelet Count 290 x10 3/uL 150-450 Normal (applies to non-numeric results) [facility] Mean Platelet Volume 9.4-12.4 Normal (applies to non-num jorge results) [facility] Neutrophils% (Auto) 31.0-71.0 Normal (applies to non-nume ezequiel results) [facility] Lymphocytes% (Auto) 20.0-55.0 Normal (applies to non-nume ezequiel results) [facility] Monocytes% (Auto) 4.0-12.0 Normal (applies to non-numeri c results) [facility] Eosinophils% (Auto) 1.0-8.0 Normal (applies to non-nume ezequiel results) [facility] Basophils% (Auto) 0.0-2.0 Normal (applies to non-numeri c results) [facility] Immature Granulocytes% (Auto) 0.0-2.0 Normal (elly lies to non-numeric results) [facility] Neutrophils# (Auto) 1.50-6.20 Normal (applies to non-nume ezequiel results) [facility] Lymphocytes# (Auto) 1.20-4.00 Normal (applies to non-nume ezequiel results) [facility] Monocytes# (Auto) 0.00-0.90 Normal (applies to non-numeri c results) [facility] Eosinophils# (Auto) 0.00-0.50 Normal (applies to non-nume ezequiel results) [facility] Basophils# (Auto) 0.00-0.20 Normal (applies to non-numeri c results) [facility] Immature Granulocytes# (Auto) 0.00-7.00 No rmal (applies to non-numeric results) [facility] ID Date Data Source [id number] 08/28/2020 09:31:22 AM EDT [facility] Name Value Range Interpretation Code Description Data Elissa rce(s) Supporting Document(s) Progress Note [facility] GVUAEx8fFmJWJaNp61/DKStcJCRfe2OeXPtdZLz0QJxxLUYyM1XiOXA7qS3cBFK8DLkPNoHeGkVjFbT6 [facility] [file] Iv8TZwHmFOPPNrAuJW5YVJf= ID Date Data Source [id number] 08/20/2020 01:52:[address] [facility] Name Value Range Interpretation Code Description Data Elissa rce(s) Supporting Document(s) Progress Note [facility] ZLTHNf5fTpSSMbHu10/JWCdqVNEva1KnXHajWSe2YAadBMWsX5MfBGD4zU4aKRH2GMjTAaMiBjPbArM3 lbm [file] [facility]/wMXRfMfJCPUYc6Sqm3SmMsrrHF0lZzpNjXR1px [file] AgICAgICAgICAgICAgICAgICAgICAgICAgICAgICAgICAgICAgICAgICAgICAgICAgICAgDQogICAgIC AgICAgICAgICAgICAgICAgICAgICAgICAgICAgICAg ICAgICAgICAgICAgICAgICAgICAgICAgICAgICAgICAgICAgICAgICAgICAgICAgICAgICAgICAgICAg ICAgDQogICAgICAgICAgICAgICAgICAgICAgICAgICAgICAgICAgICAgICAgICAgICAgICAgICAgICAg ICAgICAgICAgICAgICAgICAgICAgICAgICAgICAgIC AgICAgICAgICAgICAgDQogICAgICAgICAgICAgICAgICAgICAgICAgICAgICAgICAgICAgICAgICAgIC AgICAgICAgICAgICAgICAgICAgICAgICAgICAgICAgICAgICAgICAgICAgICAgICAgICAgICAgDQogIC AgICAgICAgICAgICAgICAgICAgICAgICAgICAgICAg ICAgICAgICAgICAgICAgICAgICAgICAgICAgICAgICAgICAgICAgICAgICAgICAgICAgICAgICAgICAg ICAgICAgDQogICAgICAgICAgICAgICAgICAgICAgICAgICAgICAgICAgICAgICAgICAgICAgICAgICAg ICAgICAgICAgICAgICAgICAgICAgICAgICAgICAgIC AgICAgICAgICAgICAgICAgDQogICAgICAgICAgICAgICAgICAgICAgICAgICAgICAgICAgICAgICAgIC AgICAgICAgICAgICAgICAgICAgICAgICAgICAgICAgICAgICAgICAgICAgICAgICAgICAgICAgICAgDQ ogICAgICAgICAgICAgICAgICAgICAgICAgICAgICAg ICAgICAgICAgICAgICAgICAgICAgICAgICAgICAgICAgICAgICAgICAgICAgICAgICAgICAgICAgICAg ICAgICAgICAgDQogICAgICAgICAgICAgICAgICAgICAgICAgICAgICAgICAgICAgICAgICAgICAgICAg ICAgICAgICAgICAgICAgICAgICAgICAgICAgICAgIC AgICAgICAgICAgICAgICAgICAgDQogICAgICAgICAgICAgICAgICAgICAgICAgICAgICAgICAgICAgIC AgICAgICAgICAgICAgICAgICAgICAgICAgICAgICAgICAgICAgICAgICAgICAgICAgICAgICAgICAgIC YrPBq9M9woOEGfAXVvTI9qPHe4Yn5+DQoNCmVuZHN0 xcFyqG2DNV1cw4IsPGzePKPuf6GlBUs7FC5OFBQnVGqlDK7SHYmkwl6ALVMbXCPhzBEWn9dzHnQtJYD1 WURsDmyoBW4XTNKyQ4yyofEcRUNoEGKSTSftRHLRAYgsSUOOPVSiTOWjPeFrVBsqKN5Or9UiaWI8WUk+ Ts4XCH2lf3RxYIfaJXVqQO5gze4BJQlVWnImJ4Lbzc I1SBM1PCWgCi8MLSWcYJRdcELtWUJfLFEDUjXbH9EqfT50GHSSJz5+MCskjqTlTwqRDbM2QOQcm7QzAN r8JX7EVHViVCu8fTJjTXBvG3Grf4IyHe79LJYzIiwgCuO7RTQuIDLDxB12DpYdCcwdURPaQNOfWf9wJJ 2eJKWlCMFsYpLsCERHGC7ZYJXhERRhtUGxKOPrOKFE GS7ICQnbURG1NFLhieXdrYFjFUhoPB7FFKOpykQlExylLTBEBCh+Tf0BKJ2hn6HmOQduCTJpIV9oyd5D IQsIReTlE5W1mGKmN9H8VYmoZo3MQYIlOJMkSiKtKSXDQWgrPM4EVR1hhdJ9VA3LtLUeAQYbHQBmqSVh LRe4J26dePRlLIpgNF2NOKW+Karen+Hm0RWBGeWSYrQQ YyZeYjEMOKEuJyT4TuT0MOz5KrP6EcHK55tIwtqfIyJNssRO8FFG1pRKVfBRMTOU3ZeVTajX3lvqWqBL PzIBNWFrCmB02sqKYuIJJlRKC4FVVhSo7WYSJcA1SieuUxkZndnuTnMMCiXMAVXV1PIEicqhHkaDKusC xzEA08lOozSG6DAo3DJyHcCG9gin0VjXYrJk8PSZEr DO8EQSEkDQCkREZkHCE4GTVbHwMjRTwcDGWwONFxNXK2XZVmWOGhMX1WZvIpERGsSYj4EUXkSKCgZFSb sc3LXCPqVFD1KTOgWJBpDNYuQVAzRHdhNKKpRSGnURK2DOUyJIEkZZ3EDoDsQTCgDDVoNfKqBPTrZCXt qz9ROFLkPNViVtDrLoKhMRBpGUXkRRqtMJEyAHX5CX d6ZPRwNJZlVP6QPfJnWEUyNSG8OAoqSAAzBWForu7BWGLuUFFlKLqqICHtDKUgDLZuCWlfTYQpUZOtPQ NmHNKkVVVgYH7KZdJdCMQjKRB7IzFtUFOnKPFaqq3MRMMlJMIfSQe1ChFjFZDxJIBmLFwpJYYwURJcQC QiSFGdVYFdPY5EBsXfYJPtUYV0VInzNVGkHZEfqn2N JAXdLQCoGvS8YkBoYOCxWZRjCXtdEVEyLRM2IHNcLVTyQZAbKN2UCgXvHKPrEBKsWYYwOBSmOJAnsr7X MDRvKRMgPRIjNGVlZDGkARQoRRakSOQwEQV1BztgBPNjCARwLZ7FTtCkDOKaFJGhHAEcEXVvMMIovo2B RYUuEUJ2DzAnZEUhRNPlHVPrUMxhWMCtXTR7WOLrHF WcACSuBD8ZUxEpRMJbMBo0XXnzBHHbLQRkys7GAUUmRCH1YXN2KwRuBTFaEMPzUNtfGAJfGDM9DycmKJ IlNYWwCM2TEsBgABRfEVf6WHcrMXGhJPSqyd3QPRKePEH7TBN9LTZbMGOsWSLwVIazNABtRZQbEtQyKZ QwPDMrFO5JRtCgOZAuMUR0DWXdVQUfOCNzog7IMEUo XHW4PTu1OKBoRGLjWNStBBt9nfVunTBaRNr3CT4PP4LmblVjTuNTIf5Aw833HXRfCZVxWt6OA8vjDh9q HSVuIGGCZe7PUQa3W6O1Vlg9RuMwQojxGSOoQKWjLrRqWSVtBFl7YVPnHHO+KEfjSsx3Myo0VjJlWDR1 TUGpAbI7NyD3GyNaNLCbGjBsLW4tCFSZLn7+TFfooYXcxVbjAXRQHqVnHWc9QZbeCNBYPt6Q ID Date Data Source [id number] 08/18/2020 05:00:[address] [facility] Name Value Range Interpretation Code Description Data Elissa rce(s) Supporting Document(s) Progress Note [facility] IBWASw8jQmULWmZp22/ZIZipIQPjc7MjBEvfEIm8AOpqMUEqC1CcQJS3aY0gXNF8FZxSOzDxXkSbErK9 lbm [file] AgICAgICAgICAgICAgICAgICAgICAgICAgICAgICAgICAgICAgICAgICAgICAgICAgICAgICAgICAgIC RyWQ2AYKBoWELbJIBrODEyYLIkEAHkNHTsGCVkKTDt ICAgICAgICAgICAgICAgICAgICAgICAgICAgICAgICAgICAgICAgICAgICAgICAgICAgICAgICAgICAg HALmHTAwBGNkYDLbNU3ZXQCfRAPzOVBpTPSiZATkZNBdYERnWWGdDWXaNLXoQWHcREQbGEMyKZWpCJWg ICAgICAgICAgICAgICAgICAgICAgICAgICAgICAgIC PkMODjUTAmWUYqLUSlDCKvPTKzGGNtUI4GWKZcAZCpJSRzGQUtFDMoUQYbZGVlJWUkQDTpLKZzPUXoGR AgICAgICAgICAgICAgICAgICAgICAgICAgICAgICAgICAgICAgICAgICAgICAgICAgICAgICAgICAgIC PfHFVjIE2OAZVwVSCeEIBoGNOgCHCrPMVyTBYhGNKj ICAgICAgICAgICAgICAgICAgICAgICAgICAgICAgICAgICAgICAgICAgICAgICAgICAgICAgICAgICAg OMKyJGWzDQLqKRDdLVHzEE0AUWXqZSEyKDTeWBCsKLMqZNZeZUToWSCxQISiOOCnBUZfGWTuTIOeDJIx ICAgICAgICAgICAgICAgICAgICAgICAgICAgICAgIC AcTMEqUVBrWODiZKHiZNOjJFJqWXBkMKJzKP6SGDCdWTVuXTBmTFGkGJPeWMVmLRNsFLWdRHFsJMRxRP AgICAgICAgICAgICAgICAgICAgICAgICAgICAgICAgICAgICAgICAgICAgICAgICAgICAgICAgICAgIC EqGBLdYWGvBE4WFXMxECCiQKWoTVPzCRXbXIYqKUJp ICAgICAgICAgICAgICAgICAgICAgICAgICAgICAgICAgICAgICAgICAgICAgICAgICAgICAgICAgICAg UTRqVFIjOWFnIFMaZTMoCURdGN9WGCJlSRAkNDLpNSMjFACxZFCoSOYiXZMdXJAyVPGvYJPfJIEaALRu ICAgICAgICAgICAgICAgICAgICAgICAgICAgICAgIC NyCXFySYMxLJOmFDXjMJTdLXPhHZVxQMVoXGFwBC4EBDEbZVQjLDEmGRRmBQUiCVNsHPGoNFAbCTXhVA AgICAgICAgICAgICAgICAgICAgICAgICAgICAgICAgICAgICAgICAgICAgICAgICAgICAgICAgICAgIC BkJDTmNEKsTOVdPO4DCB37lITtg0Q6ULUrVP6xgwl/ Ve0IMAfcbpDokIBfWY8DUlBlAJ2rcn6VXeAaGF9szi3HYMbLPgBxY2J4vEYpKZPbJDXUFtDsB73kFNtn Hx07DXoeJYZvDxBzYYx3Lb3PCoCjP1lvLEOzXuS4SOCjQwIzKPhyKM9Cp6DdgWPjMCf+Fn9TIZ3tm0Jn FOzcKsWcDY0pji6GNTrCLgOdH3AjzpL5QCUmVLPoEl 6BPOLcFHKucGLmLpHoLJGAQlVgB8KygX98VXXPLd3+NSwahvDpRriWUzCtEHKqq5BsHQe7CY0XSPYyFU o6vXYtLMVzN3Ear3QpWa65TYGgJappBUVezCHrEQBVUHY3MHvmZQDlCODuGi2wQl8mDSVtCUI1QwG1XD GMIQ4BPREiOTJczGXoIDYdSRIWWT0GKUooEKD8OTQz ptGagVXnPArtRN1OOPNqouXrRmIeXFUCUOj+Ek7YKZ4hj0JmMSmxPIMnZD4zay8CBBeYZbPaZ8P6aGPd S6S1XPfgYe1GJROuVWQtGoCbBLBOHPqsWY8RUL7gbtZ3KQ5PrDIaWVDgXBGbrZPgZBu2P60vqFDhFUww AE0CTIB+Karen+Uw4DWPDxYUQhUBFcVqQqFQURKdQaO4 DhR2KBx4QrO1LaWB46aIbkdbCfEFkoXP5DUR4hOQToCEPNOB2DkURwxN8ylaNcKdYnIJHDGnEkH41fjO DoRCGkOVGwIQRbOq5LBAMcI9CgamZpmMxkqrEkTOHcPXYWHL7GIHdkffDcxYWxkUugYS77kQqkXD5FDz 7ZBlUlAY3eas8RxHRhWb3DSSPhBR6LLLDrINKmMJIu IVM3OEHeCxLaZYbwLYClQHZoEXE4TSTsCUPiWE6CYsXuJXPuAMi4XCJeLZTkTPEdvg5MKOWqZSFcUOJi AAZrHOErJJSjRVjxRKXsYEVoWFM8DJXzUYFlII5BFjRkQKAwTNGtBwYjLWXmIOKdns3WLWQzPVKzQaV1 VLNtUKKsQFOcMTpuUXClZURcLNV8VQZpYUIlRK2DGt DdVIQdNTJ1UaKfLKNaMOBtsz2VWBOpGEMiGvdkXcUpLYAiLEChYJktXAJdAEG6QWTyTLBoKCSnUY7ZEb HhBCKjHREtLnCqVATeRYOxfu7YNSTbEDHzUQB1WSLfMCSgKMVgKZjqLTSzXCY1OxM2VOBxRDWpJK6AKz BdAXCoMDY2QlFfZZBgHLSpty8ULRFeSMIcVpX1PJWs LHElKXGsEOupDKPmQKP7JBEjMSBjFIVrIB2GLrLdXXDvVFl5BpQeAOWyGWHwtq0IMEDfLEJiTRPkELHr ZABcWFBaCVfmMRQiOUU6KjSlQKZxZTZpEP5BOdCvIGWeJNr1VeDlQDHfTGAsgr2YYTQfZBMnCQS2TJRt VXWpHCHuFHloMRCkOGYiBmH6EEFuNNItMT6CYwNwTL MmRjG0GUyxAUNgGXJcqc5TAPNqARWvAXx7QORvWFPwQJVaSSr3lmPgbRVqQTj1EK7ZU8CfdrZcTnUZBy 1Nl981LUY4BFKqZb8NG6hvSq5jOMNbIRHNSo9EQRe9YqP2SGL3YOnaK8FwEhXuD8X7KIGhBfDoI1PnXO Q4YzE+LPbuZchbRQKuBMNuJhI5HIIeIeZnVGHcRRB8 GDD9OWfqPP0hUSIWBr4+FRimpTMgfAjxUBHTPkAxINi2FJrdLTVBHs8K ID Date Data Source [id number] 06/19/2020 08:03:00 AM EST [facility] METAL WEATHER STRIPPER TEST TO BE ORDERED: PAP reflex HPV (HR)LAST MENSTRUAL PERIOD 2018 [employer]BLATIONSOURCE OF SPECIMEN Endo/ExocxCLINICAL DIAGNOSIS Screening, low risk (cx) Name Value Range Interpretation Code Description Data Elissa rce(s) Supporting Document(s) Cytology Order METAL WEATHER STRIPPER Pap result LAB SendOut No rmal (applies to non-numeric results) [facility] ID Date Data Source [id number] 06/18/2020 04:51:00 PM EST [facility] Name Value Range Interpretation Code Description Data Elissa rce(s) Supporting Document(s) ID Date Data Source [id number] 05/19/2020 12:00:00 AM EST [facility] Name Value Range Interpretation Code Description Data Elissa rce(s) Supporting Document(s) 2019 Novel Coronavirus RNA [facility] This lab was ordered by [facility] and reported by [facility]. ID Date Data Source [id number] 05/18/2020 03:52:00 PM EST [facility] Name Value Range Interpretation Code Description Data Elissa rce(s) Supporting Document(s) SARS-CoV-2 [place] result Not Detected Normal (applies to non- numeric results) [facility] This nucleic acid amplification test was developed and its performance characteristics determined by [employer]. Nucleic acid amplification tests include PCR and [...] detected) result in this assay. Performed at: [facility] [address], [place], [place] [id number] [employer] Operator: Katie Hyatt PhD, Phone: [phone] ID Date Data Source [id number] 04/21/2020 08:03:00 AM [facility] Name Value Range Interpretation Code Description Data Elissa rce(s) Supporting Document(s) COVID-19 Result Normal (applies to non-numeric results) [facility] See scanned report ID Date Data Source [id number] 04/17/2020 06:54:00 AM EST [facility] Name Value Range Interpretation Code Description Data Elissa rce(s) Supporting Document(s) SARS coronavirus 2 RNA [facility] This lab was ordered by [facility] Jamie vincent and reported by [facility]. ID Date Data Source [id number] 02/04/2020 10:08:00 PM EDT [facility] Name Value Range Interpretation Code Description Data Elissa rce(s) Supporting Document(s) Sodium 140 mmol/L 136-145 Normal (applies to non-numeric resul ts) [facility] Potassium 3.5-5.1 Normal (applies to non-numeric resul ts) [facility] Chloride 106 mmol/L 98-107 Normal (applies to non-numeric resul ts) [facility] Carbon Dioxide CO2 21-32 Normal (applies to non-numer ic results) [facility] Anion Gap 5.0-16.0 Normal (applies to non-numeric resul ts) [facility] BUN 16 mg/dL 7-18 Normal (applies to non-numeric results) [facility] Creatinine,Serum 0.7-1.2 Normal (applies to non-numeric results) [facility] GFR >60 Normal (applies to non-numeric results) [facility] Glucose Level 98 mg/dL 60-99 Normal (applies to non-numeric re sults) [facility] Reference range is only applicable when patient is fasting Note the following drug interference: Sulfasalazine Sulfapyridine Can see falsely depressed Can see falsely elevated result with up to 17% results with up to 11% decrease in measurement increase in measurement Recommend patients be collected for this test prior to administration of either drug. Calcium 8.5-10.1 Below low normal [facility] Bilirubin,Total 0.1-1.9 Normal (applies to non-numeric results) [facility] SGOT(AST) 11 U/L 15-37 Below low normal [facility] Note the following drug interference: Sulfasalazine Sulfapyridine Can see falsely depressed Can see falsely elevated result with up to 10% results with up to 10% decrease in measurement increase in measurement Recommend patients be collected for this test prior to administration of either drug. SGPT(ALT) 23 U/L 12-78 Normal (applies to non-numeric resul ts) [facility] Note the following drug interference: Sulfasalazine Sulfapyridine Can see falsely depressed Can see falsely elevated result with up to 29% results with up to 10% decrease in measurement increase in measurement Recommend patients be collected for this test prior to administration of either drug. Alkaline Phosphatase 54 U/L 38-126 Normal (applies to non-num jorge results) [facility] can increase Alkaline Phosp le vels up to 2 times the normal adult value. Normal values for children and adolescents are 2 to 3 times the normal adult value. Total Protein 6.0-8.2 Normal (applies to non-numeric re sults) [facility] Albumin Level 3.4-5.0 Below low normal [facility] ID Date Data Source [id number] 02/04/2020 09:51:00 PM EDT [facility] Name Value Range Interpretation Code Description Data Elissa rce(s) Supporting Document(s) White Blood Count 3.5-10.5 Normal (applies to non-numeri c results) [facility] Red Blood Count 3.90-5.00 Below low normal [facility] Hemoglobin 12.0-15.5 Normal (applies to non-numeric resul ts) [facility] Hematocrit 34.9-44.5 Normal (applies to non-numeric resul ts) [facility] Mean Corpuscular Volume 81.2-95.1 Normal (applies to non- numeric results) [facility] Mean Corpuscular Hgb 25.6-32.2 Above high normal [facility] Mean Corpuscular Hgb Conc 32.0-36.0 Normal (applies to no n-numeric results) [facility] Red Cell Distribution Width 11.9-15.5 Normal (appli es to non-numeric results) [facility] Platelet Count 254 x10 3/uL 150-450 Normal (applies to non-numeric results) [facility] Mean Platelet Volume 9.4-12.4 Normal (applies to non-num jorge results) [facility] Neutrophils% (Auto) 31.0-71.0 Normal (applies to non-nume ezequiel results) [facility] Lymphocytes% (Auto) 20.0-55.0 Normal (applies to non-nume ezequiel results) [facility] Monocytes% (Auto) 4.0-12.0 Normal (applies to non-numeri c results) [facility] Eosinophils% (Auto) 1.0-8.0 Normal (applies to non-nume ezequiel results) [facility] Basophils% (Auto) 0.0-2.0 Normal (applies to non-numeri c results) [facility] Immature Granulocytes% (Auto) 0.0-2.0 Normal (elly lies to non-numeric results) [facility] Neutrophils# (Auto) 1.50-6.20 Above high normal [facility] Lymphocytes# (Auto) 1.20-4.00 Normal (applies to non-nume ezequiel results) [facility] Monocytes# (Auto) 0.00-0.90 Normal (applies to non-numeri c results) [facility] Eosinophils# (Auto) 0.00-0.50 Normal (applies to non-nume ezequiel results) [facility] Basophils# (Auto) 0.00-0.20 Normal (applies to non-numeri c results) [facility] Immature Granulocytes# (Auto) 0.00-7.00 No rmal (applies to non-numeric results) [facility] ID Date Data Source [id number] 02/05/2020 08:19:00 AM EDT [facility] Imaging Services Department Imaging Report [address] [place], [place] [address] %(RAD)RES..mtdd.print.filter("line") Name: LORI LEVIN Edwin : 1975 Age/Sex: 44F Ordering Provider: SUNITA Chong Med Rec #: [id number] Reg Status: [facility] Room #: Date of Service: 02/04/20 Report Number: [id number] cc:Sincere Rivero Reason, DO Send Report To: [id number] CT/CT Abdomen & Pelvis No Contras Reason [...] [id number] Dictation Date/Time: 02/04/202155 Transcribed Date/Time: 02/05/20818 Medical Office Asst: AMERICA Name Value Range Interpretation Code Description Data Elissa rce(s) Supporting Document(s) ID Date Data Source [id number] 02/04/2020 09:57:00 PM [facility] Collected By: Nurse Initials: lb Time Collected: 2129 Name Value Range Interpretation Code Description Data Elissa rce(s) Supporting Document(s) Color,Urine Colorl-Dk Y Normal (applies to non-numeric res ults) [facility] Clarity,Urine Clear Normal (applies to non-numeric re sults) [facility] Specific [place],Urine 1.005-1.030 Normal (applies to non- numeric results) [facility] pH,Urine 5.0-8.0 Normal (applies to non-numeric resul ts) [facility] Protein,Urine Negative Normal (applies to non-numeric re sults) [facility] Glucose,Urine Negative Normal (applies to non-numeric re sults) [facility] Ketones,Urine Negative Normal (applies to non-numeric re sults) [facility] Blood,Urine Negative Normal (applies to non-numeric resu lts) [facility] Bilirubin,Urine Negative Normal (applies to non-numeric results) [facility] Urobilinogen,Urine 0.2-1.0 Normal (applies to non-numer ic results) [facility] Leukocyte Esterase,Urine Negative Normal (applies to non -numeric results) [facility] Nitrite,Urine Negative Normal (applies to non-numeric re sults) [facility] ID Date Data Source [id number] 01/23/2020 10:59:00 AM EDT [facility] Name Value Range Interpretation Code Description Data Elissa rce(s) Supporting Document(s) Sodium 140 mmol/L 136-145 Normal (applies to non-numeric resul ts) [facility] Potassium 3.5-5.1 Normal (applies to non-numeric resul ts) [facility] Chloride 104 mmol/L 98-107 Normal (applies to non-numeric resul ts) [facility] Carbon Dioxide CO2 21-32 Normal (applies to non-numer ic results) [facility] Anion Gap 5.0-16.0 Normal (applies to non-numeric resul ts) [facility] BUN 8 mg/dL 7-18 Normal (applies to non-numeric results) [facility] Creatinine,Serum 0.7-1.2 Normal (applies to non-numeric results) [facility] GFR >60 Normal (applies to non-numeric results) [facility] Glucose Level 76 mg/dL 60-99 Normal (applies to non-numeric re sults) [facility] Reference range is only applicable when patient is fasting Note the following drug interference: Sulfasalazine Sulfapyridine Can see falsely depressed Can see falsely elevated result with up to 17% results with up to 11% decrease in measurement increase in measurement Recommend patients be collected for this test prior to administration of either drug. Calcium 8.5-10.1 Below low normal [facility] spital ID Date Data Source [id number] 01/23/2020 10:46:00 AM EDT [facility] Name Value Range Interpretation Code Description Data Elissa rce(s) Supporting Document(s) White Blood Count 3.5-10.5 Above high normal [facility] Red Blood Count 3.90-5.00 Normal (applies to non-numeric results) [facility] Hemoglobin 12.0-15.5 Normal (applies to non-numeric resul ts) [facility] Hematocrit 34.9-44.5 Normal (applies to non-numeric resul ts) [facility] Mean Corpuscular Volume 81.2-95.1 Above high normal [facility] Mean Corpuscular Hgb 25.6-32.2 Normal (applies to non-num jorge results) [facility] Mean Corpuscular Hgb Conc 32.0-36.0 Normal (applies to no n-numeric results) [facility] Red Cell Distribution Width 11.9-15.5 Normal (appli es to non-numeric results) [facility] Platelet Count 273 x10 3/uL 150-450 Normal (applies to non-numeric results) [facility] Mean Platelet Volume 9.4-12.4 Normal (applies to non-num jorge results) [facility] Neutrophils% (Auto) 31.0-71.0 Above high normal [facility] Lymphocytes% (Auto) 20.0-55.0 Below low normal [facility] Monocytes% (Auto) 4.0-12.0 Normal (applies to non-numeri c results) [facility] Eosinophils% (Auto) 1.0-8.0 Normal (applies to non-nume ezequiel results) [facility] Basophils% (Auto) 0.0-2.0 Normal (applies to non-numeri c results) [facility] Immature Granulocytes% (Auto) 0.0-2.0 Normal (elly lies to non-numeric results) [facility] Neutrophils# (Auto) 1.50-6.20 Above high normal [facility] Lymphocytes# (Auto) 1.20-4.00 Normal (applies to non-nume ezequiel results) [facility] Monocytes# (Auto) 0.00-0.90 Normal (applies to non-numeri c results) [facility] Eosinophils# (Auto) 0.00-0.50 Normal (applies to non-nume ezequiel results) [facility] Basophils# (Auto) 0.00-0.20 Normal (applies to non-numeri c results) [facility] Immature Granulocytes# (Auto) 0.00-7.00 No rmal (applies to non-numeric results) [facility] ID Date Data Source [id number] 01/23/2020 10:46:00 AM EDT [facility] Name Value Range Interpretation Code Description Data Elissa rce(s) Supporting Document(s) Erythrocyte Sedimentation rate 15 mm/hr 0-20 N ormal (applies to non-numeric results) [facility] ID Date Data Source [id number] 01/21/2020 06:26:00 PM EDT [facility] C/S IF INDICATED. Name Value Range Interpretation Code Description Data Elissa rce(s) Supporting Document(s) Color,Urine Colorl-Dk Y Normal (applies to non-numeric res ults) [facility] Clarity,Urine Clear Normal (applies to non-numeric re sults) [facility] Specific [place],Urine 1.005-1.030 Normal (applies to non- numeric results) [facility] pH,Urine 5.0-8.0 Normal (applies to non-numeric resul ts) [facility] Protein,Urine Negative Normal (applies to non-numeric re sults) [facility] Glucose,Urine Negative Normal (applies to non-numeric re sults) [facility] Ketones,Urine Negative Normal (applies to non-numeric re sults) [facility] Blood,Urine Negative Normal (applies to non-numeric resu lts) [facility] Bilirubin,Urine Negative Normal (applies to non-numeric results) [facility] Urobilinogen,Urine 0.2-1.0 Normal (applies to non-numer ic results) [facility] Leukocyte Esterase,Urine Negative Normal (applies to non -numeric results) [facility] Nitrite,Urine Negative Normal (applies to non-numeric re sults) [facility] RBC,Urine None Seen Normal (applies to non-numeric resul ts) [facility] WBC,Urine None Seen Normal (applies to non-numeric resul ts) [facility] Casts,Urine None Seen Normal (applies to non-numeric resu lts) [facility] Epithelial Cells,Urine None - Few Normal (applies to non-n umeric results) [facility] Bacteria,Urine None Seen [facility] ital Procedure Social History Code Duration Value Status Description Data Source(s ) Smoking 01/13/2021 12:00:00 AM EDT - 06/05/2004 12:00:00 AM EST Patient is a former smoker completed Patient is a former smoker MANUEL ([facility], ) Smoking 01/08/2021 12:00:00 AM EDT Former Smoker completed Former Smoker eCW1 ([facility]) Smoking 01/08/2021 12:00:00 AM EDT Former Smoker completed Former Smoker eCW1 ([facility]) Smoking 01/08/2021 12:00:00 AM EDT Former Smoker completed Former Smoker eCW1 ([facility]) Smoking 09/04/2020 12:00:00 AM EDT Former Smoker completed Former Smoker eCW1 ([facility]) Smoking 09/04/2020 12:00:00 AM EDT Former Smoker completed Former Smoker eCW1 ([facility]) Smoking 09/04/2020 12:00:00 AM EDT Former Smoker completed Former Smoker eCW1 ([facility]) Alcohol intake 08/17/2020 12:00:00 AM EDT Current non-d antony of alcohol (finding) completed Current non-drinker of alcohol (finding) [facility] Tobacco use and exposure 08/17/2020 12:00:00 AM EDT Never used co mpleted Never used [facility] Smoking 08/17/2020 12:00:00 AM EDT Never smoker completed Never s [facility] Vital Signs ID Date Data Source UNK Name Value Range Interpretation Code Description Data Source(s) Systolic blood pressure 122 mm[Hg] 122 mm[Hg] M EDENT ([facility]) Diastolic blood pressure 64 mm[Hg] 64 mm[Hg] MEDENT ([facility]) Heart rate 80 /min 80 /min MEDENT ([facility]) Respiratory rate 14 /min 14 /min MEDENT ( [facility]) Body temperature 99.4 [degF] 99.4 [degF] [facility] ([facility]) Body height 61 [in_i] 61 [in_i] [facility]" Body weight 151.00 [lb_av] 151.00 [lb_av] MEDEN T ([facility]) Body mass index (BMI) [Ratio] 28.5 kg/m2 28.5 k g/m2 [facility] ([facility]) [place] body weight 105 [lb_av] 105 [lb_av] MEDEN T ([facility]) Body weight 68.494 kg 68.494 kg [facility] ([facility]) Body surface area Derived from formula 1.68 m2 1.68 m2 [facility] ([facility]) Respiratory rate 14 /min 14 /min [facility] ( [facility]) Heart rate 74 /min 74 /min [facility] Body weight 66.226 kg 66.226 kg [facility] ([facility]) Body surface area Derived from formula 1.65 m2 1.65 m2 [facility] ([facility]) Body temperature 99.9 [degF] 99.9 [degF] [facility] Body height 61 [in_i] 61 [in_i] [facility] ([facility]) 5'1" Body weight 146.00 [lb_av] 146.00 [lb_av] MEDEN T ([facility], ) Body mass index (BMI) [Ratio] 27.6 kg/m2 27.6 k g/m2 MEDENT ([facility], ) [place] body weight 105 [lb_av] 105 [lb_av] MEDEN T ([facility]) Systolic blood pressure 124 mm[Hg] 124 mm[Hg] M EDENT ([facility], ) Diastolic blood pressure 72 mm[Hg] 72 mm[Hg] MEDENT ([facility], ) Body weight 147 [lb_av] 147 [lb_av] eCW1 ([facility]) Body weight 66.68 kg 66.68 kg eCW1 ([facility]) Body height [in_i] eCW1 ([facility]) Body mass index (BMI) [Ratio] 27.77 kg/m2 27.77 kg/m2 eCW1 ([facility]) Heart rate 91 /min 91 /min eCW1 ([facility]) Respiratory rate 18 /min 18 /min eCW1 ([facility]) Body temperature 97.3 [degF] 97.3 [degF] eCW1 ( [facility]) Systolic blood pressure 118 mm[Hg] 118 mm[Hg] e CW1 ([facility]) Diastolic blood pressure 80 mm[Hg] 80 mm[Hg] eCW1 ([facility]) Systolic blood pressure 122 mm[Hg] 122 mm[Hg] M EDENT ([facility], ) Diastolic blood pressure 84 mm[Hg] 84 mm[Hg] MEDENT ([facility], ) Heart rate 68 /min 68 /min MEDENT ([facility], ) Respiratory rate 14 /min 14 /min MEDENT ( [facility]) Body temperature 96.0 [degF] 96.0 [degF] MEDENT ([facility]) Body surface area Derived from formula 1.63 m2 1.63 m2 [facility] ([facility], ) Body mass index (BMI) [Ratio] 26.6 kg/m2 26.6 k g/m2 MEDENT ([facility]) [place] body weight 105 [lb_av] 105 [lb_av] MEDEN T ([facility]) Body weight 63.958 kg 63.958 kg [facility] ([facility]) Body height 61 [in_i] 61 [in_i] [facility] ([facility]) 5'1" Body weight 141.00 [lb_av] 141.00 [lb_av] MEDEN T ([facility]) Heart rate 77 /min 77 /min eCW1 ([facility]) Body weight 150 [lb_av] 150 [lb_av] eCW1 ([facility]) Body weight 68.04 kg 68.04 kg eCW1 ([facility]) Body height [in_i] eCW1 ([facility]) Body mass index (BMI) [Ratio] 28.34 kg/m2 28.34 kg/m2 eCW1 ([facility]) Respiratory rate 18 /min 18 /min eCW1 ([facility]) Body temperature 98.3 [degF] 98.3 [degF] eCW1 ( [facility]) Systolic blood pressure 138 mm[Hg] 138 mm[Hg] e CW1 ([facility]) Diastolic blood pressure 82 mm[Hg] 82 mm[Hg] eCW1 ([facility]) ID Date Data Source [id number] 09/15/2020 07:45:[address] [facility] Name Value Range Interpretation Code Description Data Source(s) WEIGHT RECORDED 147 lb 147 lb [facility] Body height Measured 61 in 61 in [facility] ID Date Data Source [id number] 06/09/2020 12:42:00 PM EST [facility] Name Value Range Interpretation Code Description Data Source(s) Weight Measurement Method 8 8 [facility] Weight 2288 2288 [facility] pital Temperature Source 7 7 [facility] Temperature 98.2 98.2 [facility] spital Respiratory Effort 1 1 [facility] Respiratory Rate 18 18 [facility] Pulse Assessment Method 4 4 [facility] Rate 67 67 [facility] pital Height 62 62 [facility] pital Blood Pressure 117/72 117/72 [facility] Weight Measurement Method 8 8 [facility] Weight 2288 2288 [facility] pital Temperature Source 7 7 [facility] Temperature 99.7 99.7 [facility] Respiratory Effort 1 1 [facility] Respiratory Rate 16 16 [facility] Pulse Rate 88 88 [facility] pital Height 62 62 [facility] pital Blood Pressure 131/90 131/90 [facility] Weight Measurement Method 8 8 [facility] Weight 2288 2288 [facility] pital Temperature Source 7 7 [facility] Temperature 99.7 99.7 [facility] Respiratory Effort 1 1 [facility] Respiratory Rate 16 16 [facility] Pulse Rate 88 88 [facility] pital Height 62 62 [facility] pital Blood Pressure 131/90 131/90 [facility] ID Date Data Source [id number] 02/28/2020 09:36:00 AM EDT [facility] Name Value Range Interpretation Code Description Data Source(s) Weight Measurement Method 8 8 [facility] Weight 2352 2352 [facility] pital Temperature Source 7 7 [facility] Temperature 96.3 96.3 [facility] Respiratory Effort 1 1 [facility] Respiratory Rate 18 18 [facility] Pulse Assessment Method 4 4 G [facility] Pulse Rate 93 93 [facility] pital Height 61 61 [facility] pital Blood Pressure 145/92 145/92 [facility] Weight Measurement Method 8 8 [facility] Weight 2352 2352 [facility] pital Temperature Source 7 7 [facility] Temperature 96.3 96.3 [facility] Respiratory Effort 1 1 [facility] Respiratory Rate 18 18 [facility] Pulse Assessment [facility] 93 93 [facility] pital Height 61 61 [facility] pital Blood Pressure 145/92 145/92 [facility] Weight Measurement Method 8 8 [facility] Weight 2352 2352 [facility] pital Temperature Source 7 7 [facility] Temperature 96.3 96.3 [facility] Respiratory Effort 1 1 [facility] Respiratory Rate 18 18 [facility] Pulse Assessment Method 4 4 G [facility] Pulse Rate 93 93 [facility] pital Height 61 61 [facility] pital Blood Pressure 145/92 145/92 [facility] ID Date Data Source [id number] 02/28/2020 09:36:00 AM EDT [facility] Name Value Range Interpretation Code Description Data Source(s) Weight Measurement Method 8 8 [facility] Weight 2192 2192 [facility] pital Temperature Source 7 7 [facility] Temperature 98.1 98.1 [facility] Respiratory Effort 1 1 [facility] Respiratory Rate 18 18 [facility] Pulse Assessment Method 4 4 G [facility] Pulse Rate 79 79 [facility] pital Blood Pressure 118/76 118/76 [facility] Weight Measurement Method 8 8 [facility] Weight 2192 2192 [facility] pital Temperature Source 7 7 [facility] Temperature 98.1 98.1 [facility] Respiratory Effort 1 1 [facility] Respiratory Rate 18 18 [facility] Pulse Assessment Method 4 4 G [facility] Pulse Rate 79 79 [facility] pital Blood Pressure 118/76 118/76 [facility] Weight Measurement Method 8 8 [facility] Weight 2192 2192 [facility] pital Temperature Source 7 7 [facility] Temperature 98.4 98.4 [facility] Respiratory Effort 1 1 [facility] Respiratory Rate 16 16 [facility] Pulse Assessment Method 4 4 G [facility] Pulse Rate 79 79 [facility] pital Blood Pressure 118/76 118/76 [facility] ID Date Data Source [id number] 02/28/2020 09:36:00 AM EDT [facility] spital Name Value Range Interpretation Code Description Data Source(s) Weight Measurement Method 8 8 [facility] Weight 2400 2400 [facility] pital Temperature Source 7 7 [facility] Temperature 98.5 98.5 [facility] spital Respiratory Effort 1 1 [facility] Respiratory Rate 18 18 [facility] Pulse Assessment Method 4 4 G [facility] Pulse Rate 82 82 [facility] pital Height 61 61 [facility] pital Blood Pressure 108/72 108/72 [facility] ID Date Data Source [id number] 02/28/2020 09:36:00 AM EDT [facility] spital Name Value Range Interpretation Code Description Data Source(s) Weight Measurement Method 8 8 [facility] Weight 2432 2432 [facility] pital Temperature 97.5 97.5 [facility] spital Respiratory Effort 1 1 [facility] Respiratory Rate 14 14 [facility] Pulse Rate 78 78 [facility] pital Height 61 61 [facility] pital Blood Pressure 126/83 126/83 [facility] ID Date Data Source [id number] 02/28/2020 09:36:00 AM EDT [facility] spital Name Value Range Interpretation Code Description Data Source(s) Weight Measurement Method 8 8 [facility] Temperature Source 7 7 [facility] Temperature 97.9 97.9 [facility] spital Respiratory Effort 1 1 [facility] Respiratory Rate 16 16 [facility] Pulse Assessment Method 4 4 G [facility] Pulse Rate 56 56 [facility] pital Blood Pressure 113/54 113/54 [facility] Patient Treatment Plan of Care Planned Activity Planned Date Details Description Data Source (s) Hyoscyamine Sulfate 0.12 MG / Methenamin e 81.6 MG / Methylene blue 10.8 MG / phenyl salicylate 36.2 MG / Sodium Phosphate, Monobasic 40.8 MG Oral Tablet [Utira] 08/17/2020 12:00:00 AM EDT [facility] Ketorolac Tromethamine 10 MG Oral Tablet 07/30/2020 12:00:00 AM [facility]
--- NOTE | 2021-03-19 10:49 | IPNPDOC ---
Subjective General Date Seen: Mar 19, 2021 Subject Chief Complaint/History The patient is a 45-year-old female admitted with a reason for visit of Left Breast Fibroademoma. Patient status post bilateral breast oncoplastic mammoplasty, status post left breast large lumpectomy postop day 1. She is doing well, pain controlled, ambulating, tolerating diet. Current Medications Current Medications Current Medications Medications (Trade) Dose Ordered Sig/Mayra Route PRN Reason Start Time Stop Time Status Last Admin Dose Admin Acetaminophen (Tylenol Tab) 650 mg Q6H PRN PO MILD PAIN (PS 1-4) 03/18/21 11:00 03/19/21 06:51 Cefazolin Sodium/ Dextrose 2 gm/IV Miscellaneous Supplies 50 ml @ 75 mls/hr Q8H IV 03/18/21 16:00 03/19/21 07:00 DC 03/19/21 00:10 Fentanyl Citrate (Sublimaze) 25 mcg Q5MP PRN IV PAIN LEVEL 8-10 03/18/21 11:50 03/18/21 13:50 DC 03/18/21 11:44 Heparin Sodium (Porcine) (Heparin) 5,000 units Q8H SQ 03/18/21 22:00 03/19/21 06:51 Lactated Ringer's 1,000 ml @ 75 mls/hr [id number] IV 03/18/21 11:00 03/18/21 23:45 DC 03/18/21 15:48 Lactated Ringer's 1,000 ml @ 100 mls/hr Q10H IV 03/18/21 11:50 03/18/21 13:50 DC 03/18/21 13:00 Morphine Sulfate (Morphine Sulfate Inj) 2 mg Q3H PRN IV SEVERE PAIN (PS 8-10) 03/18/21 11:00 03/18/21 21:11 Ondansetron HCl (ZOFRAN INJection) 4 mg Q4H PRN IV NAUSEA OR VOMITING 03/18/21 11:00 03/18/21 21:10 Oxycodone/ Acetaminophen (Percocet 5mg/ 325mg Tablet) 1 tab ASDIRECTED PRN PO PAIN LEVEL 1-4 03/18/21 11:50 03/18/21 13:50 DC Tramadol HCl (Ultram) 50 mg Q6HP PRN PO MODERATE PAIN (PS 5-7) 03/18/21 11:00 03/19/21 06:51 Allergies Coded Allergies: No Known Allergies (Unverified , 03/04/21) Objective Physical Examination Examination GENERAL APPEARANCE:Patient seen, laying in bed, awake, alert, and oriented. Comfortable, in no acute distress. SKIN: Warm and moist. BREAST: Right and left soft, non-tender incisions intact. ALCIDES drains: 40/40 cc/24 hr. NAC: Viable, warm, symmetrical, mild post-op ecchymosis, no expanding hematoma. LUNGS: Clear to auscultation bilaterally. No wheezing appreciated. HEART: No chest wall abnormalities. Regular rate and rhythm with no murmurs appreciated. ABDOMEN: Abdomen is soft, non-tender, non-distended. Incision intact. EXTREMITIES: No edema identified. No calf tenderness. Vital Signs Vital Signs Date Time Temp Pulse Resp B/P (MAP) Pulse Ox O2 Delivery O2 Flow Rate FiO2 03/19/21 06:51 16 03/19/21 06:47 97.2 81 130/80 (97) 96 Room Air 03/18/21 11:30 2.0 I&Os I&O- Last 24 Hours up to 6 AM 03/19/21 05:59 Intake Total 2635 ml Output Total 155 ml Balance 2480 ml Impression Status post bilateral breast oncoplastic mammoplasty, status post left breast large lumpectomy postop day 1. Stable for discharge. Patient was examined by Dr. Disla and Delmar this morning. Dressings changed. Instructions given to the patient. Follow-up with breast surgery and plastic surgery after discharge. Plan / VTE VTE Prophylaxis Ordered?: Yes CLAIRE POLLARD DO Mar 19, 2021 10:49
[2021-03-19] MEDS ORDERED: TRAM50TA2 PO (10:53)
--- NOTE | 2021-03-21 23:18 | ROOPDOC ---
[facility] Report Of Operation Report of Operation DATE OF PROCEDURE: 03/18/21 PREPROCEDURE DIAGNOSES: Left breast fibroadenoma POSTPROCEDURE DIAGNOSES: Left breast fibroadenoma PROCEDURE PERFORMED: Left breast excisional biopsy with bilateral breast reconstruction via breast reduction, interpretation of intraop radiography SURGEON: Dr Jsoemanuel Disla [employer] INSPECTOR AND TESTER: Dr Penny Ghotra ANESTHESIA: general ESTIMATED BLOOD LOSS: Approximately 75 mL. COMPLICATIONS: none REMARKS: left biopsy clip seen in specimen, right biopsy clip not seen in resected tissue PROCEDURE NOTE: INDICATIONS: Ms. Lopez is a 45-year-old woman who was found to have a suspicious left breast mass. This was evaluated with diagnostic imaging and biopsy was done. Clip was placed. Biopsy showed fibroadenoma. Patient reports that the left breast fibroadenoma causes her pain. Of note patient also had Right breast biopsy in the past which was benign. Clip was placed. Excisional biopsy of the left breast fibroadenoma was offered to patient. Dr Ghotra was consulted for breast reconstruction through breast reduction approach. She wished to proceed. Patient was medically cleared for surgery by the primary care doctor. Risks and possible complications of surgical procedure including bleeding, infection and injury to surrounding structures were explained to the patient and she wished to proceed. Consent was signed. My initials were placed on the operative site. Subcutaneous injection of 5000 units of heparin was done in Preop. Dr. Ghotra marked patient preoperatively. DETAILS: Patient was taken to the operating room and placed on the operating room table. A sign in was called stating patients name, date of and the procedure to be done. Preoperative antibiotics were infused. Smooth induction of general anesthesia was done. Patients hands were extended on arm rests. Care was taken not to over extend the arms. Pillow was placed under the knees and a foam was placed under the heels. Sequential compression devices were placed and assured to function correctly. Patients both breasts and axillas were prepped and draped in the usual fashion. Appropriate time out was done. Patients name, date of , and the procedure to be done were confirmed. Intraop Ultrasound was used to confirm location of the palpable mass at 2:00 position. The location of the mass was marked on the skin. Procedure was started on the left side. Dr Ghotra made an incision along planned Harrell Pattern markings and provided access to the left breast tissue. Subcutaneous flaps were raised by me passing the area of palpable mass. Double stitch was placed at the site of palpable mass. Dr Ghotra the additional left breast tissue to allow en-block resection of the palpable mass. The short singe stitch marked superior aspect of the excision. Long single stitch marked lateral aspect of the excision. The specimen was carefully removed from the breast keeping its proper orientation and placed on the back table. It measured 27x 13 cm and it weighted 429 g. Specimen margins were marked with the surgical inking kit following the standard colors recommendations. Specimen was then placed on the grid and placed in [employer] Specimen Imaging System. The image revealed nonhydromark clip in the specimen. The specimen was labeled with patients name and left excisional biopsy and sent to pathology. At this point Dr Ghotra started to reconstruct the breast with remaining tissue. Please see Dr Londono note for details. Wound was irrigated thoroughly and adequate hemostasis was assured. Local anesthetic was injected into the tissue. 10 mm flat ALCIDES drain was placed into the wound and secured with suture. The incisions were closed in usual fashion. Prineo dressing was placed at the end of the case. Next, our attention was turned toward the right breast. Dr Ghotra made an incision to allow Harrell Pattern reduction to match the left breast. Again, please refer, to Dr Londono note for details. I stayed scrubbed in and assisted with this part of procedure. Excised specimen was marked with short single stitch superior, long single stitch lateral and loop stitch marking medial aspect of specimen. The specimen was carefully removed from the breast keeping its proper orientation and placed on the back table. It weighted 426 g. Specimen margins were marked with the surgical inking kit following the standard colors recommendations. Specimen was then placed on the grid and placed in [employer] Specimen Imaging System. The image did not reveal benign biopsy clip. The specimen was labeled with patients name and right breast reduction tissue and sent to pathology. Additional right breast tissue was excised and checked with the [employer] no clip was seen. This tissue was sent as a separate specimen. At this point Dr Ghotra started to reconstruct the breast with remaining tissue. Please see Dr Londono note for details. Wound was irrigated thoroughly and adequate hemostasis was assured. Local anesthetic was injected into the tissue. 10 mm flat ALCIDES drain was placed into the wound and secured with suture. The incisions were closed in usual fashion. Prineo dressing was placed at the end of the case. Sponge and instrument counts were done and were correct. Patient tolerated procedure well and was taken to recovery unit in stable condition. JOSEMANUEL DISLA DO Mar 21, 2021 23:18
== END 2021-03-19 12:00 | disposition home or self-care (01) ==
LOC: M SDC 06:10 → M MS5PR 06:11
PROVIDERS: ADMIT Surgery; ATTEND Surgery
DX: D24.2 Benign neoplasm of left breast (principal); N62 Hypertrophy of breast; N64.4 Mastodynia; G44.89 Other headache syndrome; R53.83 Other fatigue; E55.9 Vitamin D deficiency, unspecified; K58.0 Irritable bowel syndrome with diarrhea; G93.5 Compression of brain; Z87.891 Personal history of nicotine dependence
CPT/HCPCS: 19125; 19318; 36415; 86850; 86900; 86901; 88305; 88307; 96361; 96365; 96366; 96372; 96375; 96376; C9290; J0131; J0690; J1100; J1170; J1580; J1644; J2250; J2270; J2370; J2405; J2765; J3010